=== PATIENT | male | born 1955 | race Caucasian/White ===

== ENCOUNTER 2016-11-04 11:53 | Day surgery (SDC) | payer OTHER ==
[2016-10-30 14:16] VITALS: BMI 30.7
[~2016-11-04 11:53] MED LIST: LACTATED RINGERS 1,000 ML IV SCH; LIDOCAINE 1% 20 ML VIAL (10MG/ML) FOR IV START INTRADERMA PRN
[2016-11-04 12:42] VITALS: TEMP 97
[2016-11-04] MEDS ORDERED: LIDOCAINE 1% INJ 10MG/ML (20 ML MDV) ONE (14:10)
[2016-11-04] MEDS ORDERED: GLYCOPYRROLATE 0.2 MG/ML 2 ML VIAL ONE (14:10)
[2016-11-04] MEDS ORDERED: PROPOFOL 10 MG/ML 20 ML VIAL IV ONE (14:10)
--- NOTE | 2016-11-04 14:26 | P.GSHP ---
History of Present Illness H&P Date: 11/04/16 Chief Complaint: Anemia This is a 61-year-old male referred from Dr. Padmini martinez. Patient presents today for EGD and colonoscopy. He's had issues anemia. Patient is undergoing EGD colonoscopy today for possible GI bleed - Constitutional Constitutional: Reports as per HPI Past Medical History Past Medical History: Hyperlipidemia, Hypertension, Prostate Disorder, Thyroid Disorder Additional Past Medical History / Comment(s): ANEMIA History of Any Multi-Drug Resistant Organisms: None Reported Additional Past Surgical History / Comment(s): COLONOSCOPY. PROSTATE BX Past Anesthesia/Blood Transfusion Reactions: No Reported Reaction Past Psychological History: No Psychological Hx Reported Smoking Status: Current every day smoker Past Alcohol Use History: Rare Additional Past Alcohol Use History / Comment(s): SMOKES 1/2 PPD SINCE AGE 18 Past Drug Use History: None Reported - Past Family History Mother Family Medical History: No Reported History Medications and Allergies Home Medications Medication Instructions Recorded Confirmed Type Aspirin [Adult Low Dose Aspirin EC] 81 mg PO DAILY 10/16/16 11/04/16 History Calcium Citrate 250 mg PO DAILY 10/16/16 11/04/16 History Ferrous Sulfate [Feosol] 650 mg PO DAILY 10/16/16 11/04/16 History Finasteride [Proscar] 5 mg PO HS 10/16/16 11/04/16 History Joint Conditioner 1 tab PO DAILY 10/16/16 11/04/16 History Levothyroxine Sodium [Levoxyl] 50 mcg PO DAILY 10/16/16 11/04/16 History Lisinopril 40 mg PO HS 10/16/16 11/04/16 History Multivitamins, Thera [Multivitamin] 1 each PO DAILY 10/16/16 11/04/16 History Simvastatin [Zocor] 40 mg PO SUMOWEFR 10/16/16 11/04/16 History Terazosin [Hytrin] 2 mg PO HS 10/16/16 11/04/16 History amLODIPine [Norvasc] 10 mg PO HS 10/16/16 11/04/16 History Allergies Allergy/AdvReac Type Severity Reaction Status Date / Time No Known Allergies Allergy Verified 10/30/16 14:13 Surgical - Exam Vital Signs Temp Pulse BP Pulse Ox 97 F L 98 150/92 99 11/04/16 12:40 11/04/16 12:40 11/04/16 12:40 11/04/16 12:40 - General well developed, no distress - Eyes PERRL - ENT normal pinna - Neck no masses - Respiratory normal expansion - Cardiovascular Rhythm: regular - Abdomen Abdomen: soft, non tender Assessment and Plan Plan: Anemia. We'll perform EGD colonoscopy to evaluate for GI bleed.
--- NOTE | 2016-11-04 14:44 | P.OP ---
Date of Procedure: 11/04/16 Preoperative Diagnosis: Anemia GI bleed Postoperative Diagnosis: Antral gastritis Large Hiatal hernia Esophagitis Normal colon Procedure(s) Performed: EGD Colonoscopy Anesthesia: MAC Surgeon: Jesus Manuel Back Pathology: other (Antrum, esophagus) Condition: stable Disposition: PACU Description of Procedure: PROCEDURE: The patient was placed on the endoscopy table in the lateral position. Digital rectal examination was performed which revealed no abnormalities. The prostate was symmetrical without nodules. Flexible colonoscope was then placed in the patient's anus and passed throughout the entire colon. The ileocecal valve was visualized. The cecum, ascending, transverse, descending and sigmoid colon were normal. The rectum was normal as well. There were no masses, polyps or diverticula noted in the entire colon. Next, the gastroscope was placed oropharynx and passed into the esophagus and into the stomach. The scope was then placed through the pylorus. The first and second portion of the duodenum appeared normal. Scope was then brought back the antrum and this appeared mildly inflamed. A biopsies performed. The scope was then retroflexed and the remainder of the stomach appeared normal. There was a large hiatal hernia. The GE junction was at 38 cm. The distal esophagus appeared inflamed a biopsies performed. The proximal esophagus appeared normal. The scope was then withdrawn for patient.
[2016-11-04 14:47] VITALS: RESP 18
[2016-11-04 15:01] VITALS: BP 121/78; PULSE 90
== END 2016-11-04 15:20 | disposition home or self-care (01) ==
LOC: ORWHC2ENDO 11:53
PROVIDERS: ATTEND Surgery
DX: K29.50 Unspecified chronic gastritis without bleeding (principal); K22.70 Barrett's esophagus without dysplasia; K20.9 Esophagitis, unspecified; K44.9 Diaphragmatic hernia without obstruction or gangrene; D64.9 Anemia, unspecified; I10 Essential (primary) hypertension; E78.5 Hyperlipidemia, unspecified; E07.9 Disorder of thyroid, unspecified; N40.0 Benign prostatic hyperplasia without lower urinary tract symptoms; F17.200 Nicotine dependence, unspecified, uncomplicated; Z79.82 Long term (current) use of aspirin; Z79.899 Other long term (current) drug therapy
CPT/HCPCS: 88305; 88342; 45378; 43239; J2001; J2704

== ENCOUNTER 2019-06-01 07:46 | Emergency (ER) | payer MEDICARE, OTHER ==
[2019-06-01] MEDS ORDERED: MECLIZINE 12.5 MG TAB PO STA (07:53)
[2019-06-01] MEDS ORDERED: SODIUM CHLORIDE 0.9% 1,000 ML IV STA (07:53)
[2019-06-01] MEDS ORDERED: ONDANSETRON 4 MG/2 ML VIAL IVP STA (07:53)
[2019-06-01] MEDS ORDERED: SODIUM CHLORIDE 0.9% 500 ML 500 ML IV STA (07:53)
[2019-06-01 07:55] VITALS: TEMP 98.2
--- NOTE | 2019-06-01 07:58 | ED ---
Syncope HPI - General Stated Complaint: SYNCOPE Time Seen by Provider: 06/01/19 07:47 Source: patient, EMS, RN notes reviewed Mode of arrival: EMS - History of Present Illness Initial Comments: Physical 64-year-old male with history of hypertension at work today when he started feeling nauseated about 10 or 15 minutes prior to his syncopal episode. He states he felt dizzy and had a headache he himself down slowly but was actually out for approximately 15 seconds. He is dizzy he states when he moves his head he moves his eyes he keeps his eyes closed to help alleviate it. He states he feels worse in supine position and upright. He has no prior episode of this. He does have sinus congestion and has had some left ear drainage which is Dr. his seen in is aware of. No history of strokes patient apparently had for 5 cigarettes this morning and also coffee prior to the event. No reports of fevers chills nausea vomiting sweats prior to this no other modifying factors he states he is compliant with his medications MD Complaint: loss of consciousness - Related Data Home Medications Medication Instructions Recorded Confirmed Aspirin [Adult Low Dose Aspirin EC] 81 mg PO DAILY 10/16/16 06/01/19 Finasteride [Proscar] 5 mg PO HS 10/16/16 06/01/19 Lisinopril 40 mg PO HS 10/16/16 06/01/19 Simvastatin [Zocor] 40 mg PO SUMOWEFR 10/16/16 06/01/19 Terazosin [Hytrin] 2 mg PO BID 10/16/16 06/01/19 amLODIPine [Norvasc] 10 mg PO HS 10/16/16 06/01/19 Levothyroxine Sodium [Synthroid] 75 mcg PO DAILY 06/01/19 06/01/19 Previous Rx's Medication Instructions Recorded Meclizine [Antivert] 25 mg PO TID #20 tab 06/01/19 Allergies Allergy/AdvReac Type Severity Reaction Status Date / Time No Known Allergies Allergy Verified 06/01/19 08:38 Review of Systems ROS Statement: Those systems with pertinent positive or pertinent negative responses have been documented in the HPI. ROS Other: All systems not noted in ROS Statement are negative. Past Medical History Past Medical History: Hyperlipidemia, Hypertension, Prostate Disorder, Thyroid Disorder Additional Past Medical History / Comment(s): ANEMIA History of Any Multi-Drug Resistant Organisms: None Reported Additional Past Surgical History / Comment(s): COLONOSCOPY. PROSTATE BX Past Anesthesia/Blood Transfusion Reactions: No Reported Reaction Past Psychological History: No Psychological Hx Reported Smoking Status: Current every day smoker Past Alcohol Use History: Rare Additional Past Alcohol Use History / Comment(s): SMOKES 1/2 PPD SINCE AGE 18 Past Drug Use History: None Reported - Past Family History Mother Family Medical History: No Reported History General Exam - General Exam Comments Initial Comments: This a well-developed asthenic appearing male who is awake alert oriented 3 General appearance: alert, in no apparent distress Head exam: Present: atraumatic, normocephalic, normal inspection Eye exam: Present: normal appearance, PERRL, EOMI. Absent: scleral icterus, conjunctival injection, periorbital swelling ENT exam: Present: mucous membranes dry Neck exam: Present: normal inspection. Absent: tenderness, meningismus, lymphadenopathy Respiratory exam: Present: normal lung sounds bilaterally. Absent: respiratory distress, wheezes, rales, rhonchi, stridor Cardiovascular Exam: Present: regular rate, normal rhythm, normal heart sounds. Absent: systolic murmur, diastolic murmur, rubs, gallop, clicks GI/Abdominal exam: Present: soft, normal bowel sounds. Absent: distended, tenderness, guarding, rebound, rigid Extremities exam: Present: normal inspection, full ROM, normal capillary refill. Absent: tenderness, pedal edema, joint swelling, calf tenderness Back exam: Present: normal inspection Neurological exam: Present: alert, oriented X3, CN II-XII intact Psychiatric exam: Present: normal affect, normal mood Skin exam: Present: warm, dry, intact, normal color. Absent: rash Course Vital Signs 06/01/19 06/01/19 06/01/19 07:52 08:58 09:00 Temperature 98.2 F Pulse Rate 66 63 Pulse Rate [ 62 Custodial Manager ] Respiratory 17 17 Rate Blood Pressure 105/69 103/71 O2 Sat by Pulse 99 Oximetry 06/01/19 10:00 Temperature Pulse Rate 59 L Pulse Rate [ Custodial Manager ] Respiratory 16 Rate Blood Pressure 103/71 O2 Sat by Pulse 99 Oximetry - Reevaluation(s) Reevaluation #1: 06/01/19 10:16 I did reevaluate patient on multiple occasions he has no further symptoms he has no dizziness. Procedures - Smoking Cessation Time Spent Discussing Smoking Cessation w/Patient (Minutes): 3 Patient Acknowledges Need for Cessation: Yes Medical Decision Making - Medical Decision Making Patient has had no further symptoms the presentation consistent with a vasovagal episode though benign positional vertigo is not excluded patient will be discharged he is encouraged to stop smoking also increase oral fluids he will follow-up with his doctor for reevaluation of his hiatal hernia and the CAT scan findings CT showed no evidence of pulmonary embolism - Lab Data Result diagrams: 06/01/19 07:25 06/01/19 07:25 Lab Results 06/01/19 06/01/19 06/01/19 Range/Units 07:25 07:25 07:25 WBC 8.1 (3.8-10.6) k/uL RBC 4.11 L (4.30-5.90) m/uL Hgb 13.2 (13.0-17.5) gm/dL Hct 38.7 L (39.0-53.0) % MCV 94.1 (80.0-100.0) fL MCH 32.2 (25.0-35.0) pg MCHC 34.2 (31.0-37.0) g/dL RDW 13.3 (11.5-15.5) % Plt Count 232 (150-450) k/uL Neutrophils % 67 % Lymphocytes % 21 % Monocytes % 7 % Eosinophils % 2 % Basophils % 0 % Neutrophils # 5.4 (1.3-7.7) k/uL Lymphocytes # 1.7 (1.0-4.8) k/uL Monocytes # 0.5 (0-1.0) k/uL Eosinophils # 0.2 (0-0.7) k/uL Basophils # 0.0 (0-0.2) k/uL PT 10.9 (9.0-12.0) sec INR 1.0 (<1.2) APTT 22.9 (22.0-30.0) sec D-Dimer 0.82 H (<0.60) mg/L FEU Sodium 140 (137-145) mmol/L Potassium 4.1 (3.5-5.1) mmol/L Chloride 108 H (98-107) mmol/L Carbon Dioxide 22 (22-30) mmol/L Anion Gap 10 mmol/L BUN 17 (9-20) mg/dL Creatinine 1.20 (0.66-1.25) mg/dL Est GFR (CKD-EPI)AfAm 73 (>60 ml/min/1.73 sqM) Est GFR (CKD-EPI)NonAf 63 (>60 ml/min/1.73 sqM) Glucose 128 H (74-99) mg/dL Calcium 9.6 (8.4-10.2) mg/dL Magnesium 2.0 (1.6-2.3) mg/dL Total Bilirubin 1.2 (0.2-1.3) mg/dL AST 27 (17-59) U/L ALT 27 (21-72) U/L Alkaline Phosphatase 68 (38-126) U/L Creatine Kinase 215 H (55-170) U/L Troponin I (0.000-0.034) ng/mL Total Protein 6.6 (6.3-8.2) g/dL Albumin 3.8 (3.5-5.0) g/dL Urine Color Urine Appearance (Clear) Urine pH (5.0-8.0) Ur Specific [place] (1.001-1.035) Urine Protein (Negative) Urine Glucose (UA) (Negative) Urine Ketones (Negative) Urine Blood (Negative) Urine Nitrite (Negative) Urine Bilirubin (Negative) Urine Urobilinogen (<2.0) mg/dL Ur Leukocyte Esterase (Negative) Urine RBC (0-5) /hpf Urine WBC (0-5) /hpf Hyaline Casts (0-2) /lpf Urine Mucus (None) /hpf 06/01/19 06/01/19 Range/Units 07:25 08:32 WBC (3.8-10.6) k/uL RBC (4.30-5.90) m/uL Hgb (13.0-17.5) gm/dL Hct (39.0-53.0) % MCV (80.0-100.0) fL MCH (25.0-35.0) pg MCHC (31.0-37.0) g/dL RDW (11.5-15.5) % Plt Count (150-450) k/uL Neutrophils % % Lymphocytes % % Monocytes % % Eosinophils % % Basophils % % Neutrophils # (1.3-7.7) k/uL Lymphocytes # (1.0-4.8) k/uL Monocytes # (0-1.0) k/uL Eosinophils # (0-0.7) k/uL Basophils # (0-0.2) k/uL PT (9.0-12.0) sec INR (<1.2) APTT (22.0-30.0) sec D-Dimer (<0.60) mg/L FEU Sodium (137-145) mmol/L Potassium (3.5-5.1) mmol/L Chloride (98-107) mmol/L Carbon Dioxide (22-30) mmol/L Anion Gap mmol/L BUN (9-20) mg/dL Creatinine (0.66-1.25) mg/dL Est GFR (CKD-EPI)AfAm (>60 ml/min/1.73 sqM) Est GFR (CKD-EPI)NonAf (>60 ml/min/1.73 sqM) Glucose (74-99) mg/dL Calcium (8.4-10.2) mg/dL Magnesium (1.6-2.3) mg/dL Total Bilirubin (0.2-1.3) mg/dL AST (17-59) U/L ALT (21-72) U/L Alkaline Phosphatase (38-126) U/L Creatine Kinase (55-170) U/L Troponin I <0.012 (0.000-0.034) ng/mL Total Protein (6.3-8.2) g/dL Albumin (3.5-5.0) g/dL Urine Color Dark Brown Urine Appearance Cloudy (Clear) Urine pH 6.5 (5.0-8.0) Ur Specific [place] 1.037 H (1.001-1.035) Urine Protein 2+ H (Negative) Urine Glucose (UA) Negative (Negative) Urine Ketones 2+ H (Negative) Urine Blood Negative (Negative) Urine Nitrite Negative (Negative) Urine Bilirubin 1+ H (Negative) Urine Urobilinogen 4.0 (<2.0) mg/dL Ur Leukocyte Esterase Small H (Negative) Urine RBC 3 (0-5) /hpf Urine WBC 10 H (0-5) /hpf Hyaline Casts 5 H (0-2) /lpf Urine Mucus Many H (None) /hpf - EKG Data -: EKG Interpreted by Me (Sinus rhythm a 61 appear interval 142 QRS 92 QT since QTC 454/457 nonspecif) - Radiology Data Radiology results: report reviewed (I did review the imaging and report patient does know he has a hiatal hernia he will follow up with his doctor for the irregularity), image reviewed Disposition Clinical Impression: Vasovagal syncope, Benign paroxysmal vertigo Disposition: HOME SELF-CARE Condition: Good Instructions (If sedation given, give patient instructions): Syncope (ED), How to Stop Smoking (ED), Benign Paroxysmal Positional Vertigo (ED) Prescriptions: Meclizine [Antivert] 25 mg PO TID #20 tab Is patient prescribed a controlled substance at d/c from ED?: No Referrals: Padmini Juarez DO [Primary Care Provider] - 1-2 days
[2019-06-01 08:20] LABS: Basophils % (A) 0 %; Eosinophils # (A) 0.2 k/uL (0-0.7); Eosinophils % (A) 2 %; HCT 38.7 % (39.0-53.0); HGB 13.2 gm/dL (13.0-17.5); Lymphocytes # (A) 1.7 k/uL (1.0-4.8); Lymphocytes % (A) 21 %; MCH 32.2 pg (25.0-35.0); MCHC 34.2 g/dL (31.0-37.0); MCV 94.1 fL (80.0-100.0); Mean Platelet Volume 6.5; Monocytes # (A) 0.5 k/uL (0-1.0); Monocytes % (A) 7 %; Neutrophils # (A) 5.4 k/uL (1.3-7.7); Neutrophils % (A) 67 %; Platelet Count 232 k/uL (150-450); RBC 4.11 m/uL (4.30-5.90); RDW 13.3 % (11.5-15.5); WBC 8.1 k/uL (3.8-10.6)
--- NOTE | 2019-06-01 08:30 | CT ---
EXAMINATION TYPE: CT brain wo con DATE OF EXAM: 06/01/2019 COMPARISON: None HISTORY: 64-year-old male Syncope TECHNIQUE: Examination was done in axial plane without intravenous contrast. Coronal and sagittal r econstructions performed. CT DLP: 1099.4 mGycm Automated exposure control for dose reduction was used. FINDINGS: There is no evidence of acute intracranial hemorrhage, acute ischemic changes, mass, mass-effect, or extra-axial fluid collection. There is no effacement of cerebral sulci or basal subarachnoid cister ns. There is no hydrocephalus. There is no midline shift. Collins-white matter distinction is preserv ed. Benign basal ganglionic calcifications. Large 2.8 cm mucosal retention cyst floor of the right maxillary sinus. Moderate mucosal thickening f rontal and ethmoid sinuses. Rightward nasal septal deviation. Mastoid air cells well pneumatized. Orb its and globes are intact. Some focal thickening along the left posterior skull base, are present axial image 13 and coronal marc ge 65, possibly some scar tissue formation in the absence of any acute injury. IMPRESSION: 1. No acute intracranial abnormality seen. 2. Moderate chronic ethmoid, frontal, and right maxillary sinus disease. 3. Focal high density soft tissue thickening along the left posterior base of skull probably scar tis bernabe formation in the absence of any acute injury. Otherwise, correlate to exclude a low scalp hematom a.
[2019-06-01 08:33] LABS: Albumin 3.8 g/dL (3.5-5.0); Calcium 9.6 mg/dL (8.4-10.2); Total Bilirubin 1.2 mg/dL (0.2-1.3); Total Protein 6.6 g/dL (6.3-8.2)
--- NOTE | 2019-06-01 08:34 | XR ---
EXAMINATION TYPE: XR chest 2V DATE OF EXAM: 06/01/2019 COMPARISON: NONE HISTORY: Syncope and weakness. TECHNIQUE: Frontal and lateral views of the chest are obtained. FINDINGS: There is some chronic parenchymal changes without suspicious focal air space opacity, pleu ral effusion, or pneumothorax seen. Symmetric lower lung rounded densities likely reflect patient's n ipples. The cardiac silhouette size is within normal limits. Multilevel spurring in thoracic spine is seen. Overlying EKG leads are present. Scoliotic curvature is noted. IMPRESSION: Chronic changes without acute pulmonary process.
[2019-06-01 08:35] LABS: Potassium 4.1 mmol/L (3.5-5.1)
[2019-06-01 08:37] LABS: Partial Thromboplastin Time 22.9 sec (22.0-30.0); Prothrombin Time 10.9 sec (9.0-12.0)
[2019-06-01 08:40] LABS: D-Dimer 0.82 mg/L FEU (<0.60)
[2019-06-01 09:54] LABS: Appearance,Urine Cloudy (Clear); Bilirubin,Urine 1+ (Negative); Blood,Urine Negative (Negative); Color,Urine Dark Brown; Glucose,Urine (UA) Negative (Negative); Hyaline Casts,Urine 5 /lpf (0-2); Ketones,Urine 2+ (Negative); Leukocyte Esterase,Urine Small (Negative); Mucus,Urine Many /hpf; Nitrite,Urine Negative (Negative); PH, Urine 6.5 (5.0-8.0); Protein,Urine 2+ (Negative); RBC,Urine 3 /hpf (0-5); Specific Gravity,Urine 1.037 (1.001-1.035); WBC,Urine 10 /hpf (0-5)
--- NOTE | 2019-06-01 09:54 | CT ---
EXAMINATION TYPE: CT angio chest DATE OF EXAM: 06/01/2019 COMPARISON: Radiograph same day HISTORY: 64-year-old male Syncope and elevated D dimer TECHNIQUE: Contiguous axial scanning of the chest performed with IV Contrast, patient injected with 6 9 mL of Isovue 370. Coronal/sagittal MIP reconstructions performed. CT DLP: 320.2 mGycm Automated exposure control for dose reduction was used. FINDINGS: Heart upper limits of normal in size without pericardial effusion. Scattered mild coronary vessel jeanna cifications are present. Ectatic ascending aorta 3.9 cm. Bovine configuration to the aortic arch. Large caliber to the main right and left pulmonary arteries at 2.7 and 2.6 cm, respectively, suggesti ng underlying pulmonary artery hypertension. Satisfactory opacification of the pulmonary arterial sys tem. No flattening of the interventricular septum or reflux of contrast into the hepatic veins. No ev idence for pulmonary embolus. There appears to be an underlying hiatal hernia but with irregular moderate severe circumferential wa ll thickening extending from the mid thorax to the distal esophagus. No thoracic lymphadenopathy. No consolidation or pleural effusion. Mild dependent atelectasis. Visualized upper abdomen shows a hilar splenule and mild diffuse low-density thickening of the left a drenal gland. Bones: Moderate degenerative disc disease throughout the thoracic spine. IMPRESSION: 1. NO EVIDENCE FOR PULMONARY EMBOLUS. HOWEVER, LARGE CALIBER TO THE MAIN RIGHT AND LEFT PULMONARY ART ERIES SUGGESTS UNDERLYING PULMONARY ARTERIAL HYPERTENSION. 2. NOTE MODERATE TO SEVERE IRREGULAR CIRCUMFERENTIAL THICKENING OF THE MID TO DISTAL THORACIC ESOPHAG US. ESOPHAGEAL CARCINOMA SHOULD BE EXCLUDED. 3. ACCOMPANYING HIATAL HERNIA.
[2019-06-01 10:13] VITALS: BP 103/71; PULSE 59; RESP 16
[2019-06-01] MEDS ORDERED: HYDROmorphone 0.5 MG/0.5 ML SYRINGE IVP STA (10:15)
== END 2019-06-01 10:38 | disposition home or self-care (01) ==
LOC: EC 07:46
DX: H81.12 Benign paroxysmal vertigo, left ear (principal); R55 Syncope and collapse; I10 Essential (primary) hypertension; E78.5 Hyperlipidemia, unspecified; E07.9 Disorder of thyroid, unspecified; F17.200 Nicotine dependence, unspecified, uncomplicated; Z71.6 Tobacco abuse counseling; Z79.82 Long term (current) use of aspirin; Z79.899 Other long term (current) drug therapy; Z79.890 Hormone replacement therapy; Z53.20 Procedure and treatment not carried out because of patient's decision for unspecified reasons
CPT/HCPCS: 36415; 93005; 85379; 80053; 82550; 83735; 84484; 85025; 85610; 85730; 81001; 71046; 70450; 71275; 99285; 96360; 96361 ×2; Q9967

== ENCOUNTER → 2019-08-11 | Day surgery (SDC) | payer MEDICARE, OTHER ==
[2019-08-09 14:11] VITALS: BMI 21.7
[~2019-08-11] MED LIST changes: +LIDOCAINE 1% 20 ML VIAL (10MG/ML) FOR IV START INTRADERMA ONE; -LIDOCAINE 1% 20 ML VIAL (10MG/ML) FOR IV START INTRADERMA PRN; +LIDOCAINE 1% INJ 10MG/ML (20 ML MDV) ONE; +PROPOFOL 10 MG/ML 20 ML VIAL IV ONE
[2019-08-11 09:54] VITALS: RESP 16; TEMP 97.6
--- NOTE | 2019-08-11 10:45 | P.GSHP ---
History of Present Illness H&P Date: 08/11/19 Chief Complaint: GERD this is a 64-year-old male with chronic history of GERD. Patient has a known history of a hiatal hernia. Patient rents today for EGD. His recent CAT scan shows some evidence of suspicious thickening of the esophagus. Past Medical History Past Medical History: Hyperlipidemia, Hypertension, Prostate Disorder, Thyroid Disorder Additional Past Medical History / Comment(s): ANEMIA-. had an episode of vertigo in May 2019 History of Any Multi-Drug Resistant Organisms: None Reported Additional Past Surgical History / Comment(s): COLONOSCOPY. PROSTATE BX Past Anesthesia/Blood Transfusion Reactions: No Reported Reaction Smoking Status: Current every day smoker - Past Family History Mother Family Medical History: No Reported History Medications and Allergies Home Medications Medication Instructions Recorded Confirmed Type Aspirin [Adult Low Dose Aspirin EC] 81 mg PO DAILY 10/16/16 08/09/19 History Finasteride [Proscar] 5 mg PO HS 10/16/16 08/09/19 History Lisinopril 40 mg PO HS 10/16/16 08/09/19 History Simvastatin [Zocor] 40 mg PO SUMOWEFR 10/16/16 08/09/19 History Terazosin [Hytrin] 2 mg PO BID 10/16/16 08/09/19 History amLODIPine [Norvasc] 10 mg PO HS 10/16/16 08/09/19 History Levothyroxine Sodium [Synthroid] 75 mcg PO DAILY 06/01/19 08/09/19 History Allergies Allergy/AdvReac Type Severity Reaction Status Date / Time No Known Allergies Allergy Verified 08/11/19 09:44 Surgical - Exam Vital Signs Temp Pulse Resp BP Pulse Ox 97.6 F 88 16 102/57 99 08/11/19 09:53 08/11/19 09:53 08/11/19 09:53 08/11/19 09:53 08/11/19 09:53 - General well developed, well nourished, no distress - Eyes PERRL - ENT normal pinna - Neck no masses - Respiratory normal expansion - Cardiovascular Rhythm: regular - Abdomen Abdomen: soft, non tender Assessment and Plan Assessment: GERD. We'll perform EGD.
--- NOTE | 2019-08-11 10:58 | P.OP ---
Date of Procedure: 08/11/19 Preoperative Diagnosis: GERD Dysphagia Postoperative Diagnosis: esophageal mass at 30 cm suspicious for adenocarcinoma Procedure(s) Performed: EGD Anesthesia: MAC Surgeon: Jesus Manuel Back Pathology: other (esophageal mass) Condition: stable Disposition: PACU Description of Procedure: patient's placed in the endoscopy table in the lateral position. He received IV sedation. The gastroscope placed oropharynx passed in the esophagus. There is a large amount liquid within the esophagus. At 30 cm there is an obstructing esophageal mass. The endoscope could not be placed beyond this. The mass was quite friable and bled easily. Several biopsies of mass performed. The mass hwas very suspicious for a esophageal carcinoma. The endoscope could not be passed beyond the mass. At this point the scope was withdrawn. The proximal esophagus appeared normal. Scope was withdrawn for patient.
[2019-08-11 11:17] VITALS: BP 114/76; PULSE 75
--- NOTE | 2019-08-18 13:39 | CDI ---
Outpatient Documentation Clarification Form Date: 08/18/19 CDS/Area Director Name: Phone: If any questions, call Anju Mckinley Pack [employer] Operator at [phone] Patient Name: Genaro Cuevas Admit Date: 08/11/19 Discharge Date: 08/11/19 ATTENTION: The [facility] Coding Staff appreciate your assistance in clarifying documentation. Please respond to the clarification below the line at the bottom and electronically sign. The [facility] Coding staff will review the response and follow-up if needed. Please note: Queries are made part of the Legal Health Record. If you have any questions, please contact the Pack Press Operator. Dear Dr. Back, The Op Note described an esophageal mass (Path Report confirms adenocarcinoma) at 30 cm. What part of the esophagus is this mass within? For coding purposes, options include: A. Abdominal B. Cardio-esophageal junction C. Cervical D. Distal (third) E. Lower (third) F. Middle (third) G. Proximal (third) H. Thoracic I. Upper (third) J. Unspecified/unable to determine K. Other please describe below Thank you for your kind consideration. see op report addendum MTDD
== END ==
LOC: ORWHC2ENDO 09:26
PROVIDERS: ATTEND Surgery
DX: C15.5 Malignant neoplasm of lower third of esophagus (principal); K21.9 Gastro-esophageal reflux disease without esophagitis; E78.5 Hyperlipidemia, unspecified; I10 Essential (primary) hypertension; E07.9 Disorder of thyroid, unspecified; N40.0 Benign prostatic hyperplasia without lower urinary tract symptoms; F17.200 Nicotine dependence, unspecified, uncomplicated; Z79.82 Long term (current) use of aspirin; Z79.890 Hormone replacement therapy; Z79.899 Other long term (current) drug therapy
CPT/HCPCS: 88305; 43239; J2001; J2704

== ENCOUNTER → 2019-08-26 | Outpatient (CLI) | payer MEDICARE ==
--- NOTE | 2019-08-28 10:03 | PE ---
EXAMINATION TYPE: PET CT fusion skull to thigh DATE OF EXAM: 08/26/2019 COMPARISON: Chest CT June 01, 2019 HISTORY: Esophageal cancer recently diagnosed on biopsy in May or June after abnormal CT. TECHNIQUE: Following the intravenous administration of 8.77 mCi of F-18 FDG, whole body images are p erformed from the skull base to the midthigh. Images are reviewed on the computer in the coronal, ax ial, and sagittal planes. Reconstructed rotating images are created on independent workstation and r eviewed on the computer. A noncontrast CT is performed in conjunction with the PET scan. SCAN: Initial Scan FINDINGS: SKULL BASE AND NECK: No suspicious hypermetabolic uptake. CHEST, MEDIASTINUM, AND HILAR REGION: Corresponding to CT there is long segment mass or neoplasm of t he esophagus measuring roughly 9 cm in length beginning subcarinal level extending a few centimeters above the diaphragmatic hiatus. Max SUV is 22.25. There is dilated proximal to mid esophagus with int raluminal debris near level of clarisse proximal to this. There is abnormal pericarinal lymph node measuring 1.8 x 1.0 cm axial image 87 with max SUV of 5.55. ABDOMEN AND PELVIS: There are hepatic metastatic lesions with several areas of abnormal hypermetaboli c uptake. Vague CT hypodense lesions are less well seen but identified in the larger lesions. Lateral segment right hepatic lobe lesion image 149 has max SUV of 17.77 measuring approximately 2.1 cm long axis. More anterior 2.2 cm lesion long axis same image has max SUV of 17.65. No additional areas of suspicious hypermetabolic uptake. OSSEOUS STRUCTURES: Osseous hypermetabolic metastatic disease is present. There is lytic right iliac bone hypermetabolic lesion axial image 185 Max SUV of 23.17. Larger right iliac lytic destructive lesion with soft tissue mass axial image 167 with max SUV 28.87. OTHER CT: Moderate calcified plaque bilateral carotid bulb level. Cardiomegaly with coronary artery desiccation is present. Patient has very little intra-abdominal fat making evaluation suboptimal. Moderate calcified plaque o f the aorta extending into branch vessels. Dependent small gallstones and/or gallbladder sludge. S-shaped scoliosis with multilevel spurring in the spine. IMPRESSION: Confirmation of moderate length mid to distal esophageal neoplasm with metastatic disease to the liver and pelvis identified. Abnormal paracarinal adenopathy noted.
== END | disposition home or self-care (01) ==
LOC: RADPETMAIN 12:32
PROVIDERS: ATTEND Internal Medicine Hematology & Oncology
DX: C15.8 Malignant neoplasm of overlapping sites of esophagus (principal); C78.7 Secondary malignant neoplasm of liver and intrahepatic bile duct; C79.89 Secondary malignant neoplasm of other specified sites; R59.9 Enlarged lymph nodes, unspecified
CPT/HCPCS: 78815; A9552

== ENCOUNTER → 2019-09-13 | Outpatient (CLI) | payer MEDICARE ==
--- NOTE | 2019-09-13 11:16 | ECHOF ---
Referral Reason:C15.5 esophageal ca MEASUREMENTS -------- HEIGHT: 182.9 cm WEIGHT: 65.8 kg BP: RVIDd: 2.2 cm (< 3.3) IVSd: 1.0 cm (0.6 - 1.1) LVIDd: 3.8 cm (3.9 - 5.3) LVPWd: 1.3 cm (0.6 - 1.1) IVSs: 1.4 cm LVIDs: 2.5 cm LVPWs: 1.6 cm LAESV Index (A-L): 35.34 ml/m Ao Diam: 3.7 cm (2.0 - 3.7) AV Cusp: 2.1 cm (1.5 - 2.6) LA Diam: 2.7 cm (2.7 - 3.8) MV EXCURSION: 26.234 mm (> 18.000) MV EF SLOPE: 180 mm/s (70 - 150) EPSS: 0.5 cm MV E Torin: 0.88 m/s MV DecT: 274 ms MV A Torin: 0.82 m/s MV E/A Ratio: 1.07 AV maxP.60 mmHg AV meanP.43 mmHg RAP: 5.00 mmHg RVSP: 35.79 mmHg FINDINGS -------- Sinus rhythm. This was a technically good study. The left ventricular size is normal. There is mild concentric left ventricular hypertrophy. Overa ll left ventricular systolic function is normal with, an EF between 55 - 60 %. Increased LAP. Grade 2 Diastolic Dysfuntion. The right ventricle is normal in size. LA is moderately dilated 34-39 ml/m2 The right atrial size is normal. Aortic valve is trileaflet and is mildly thickened. There is mild aortic valve sclerosis. Peak/me an gradient across the Aortic Valve is 14.60mmHg / 7.43mmHg. The mitral valve is normal. The mitral valve leaflets are mildly thickened. Mild mitral regurgita tion is present. The tricuspid valve appears structurally normal. Mild tricuspid regurgitation present. There is m ild pulmonary hypertension. The right ventricular systolic pressure, as measured by Doppler, is 35. 79mmHg. There is no pulmonic regurgitation present. The aortic root size is normal. Normal inferior vena cava with normal inspiratory collapse consistent with estimated right atrial pre ssure of 5 mmHg. There is a trivial pericardial effusion present. CONCLUSIONS -------- 1. Sinus rhythm. 2. This was a technically good study. 3. The left ventricular size is normal. 4. There is mild concentric left ventricular hypertrophy. 5. Overall left ventricular systolic function is normal with, an EF between 55 - 60 %. 6. Increased LAP. Grade 2 Diastolic Dysfuntion. 7. The right ventricle is normal in size. 8. LA is moderately dilated 34-39 ml/m2 9. The right atrial size is normal. 10. Aortic valve is trileaflet and is mildly thickened. 11. There is mild aortic valve sclerosis. 12. Peak/mean gradient across the Aortic Valve is 14.60mmHg / 7.43mmHg. 13. The mitral valve is normal. 14. The mitral valve leaflets are mildly thickened. 15. Mild mitral regurgitation is present. 16. The tricuspid valve appears structurally normal. 17. Mild tricuspid regurgitation present. 18. There is mild pulmonary hypertension. 19. The right ventricular systolic pressure, as measured by Doppler, is 35.79mmHg. 20. There is no pulmonic regurgitation present. 21. The aortic root size is normal. 22. Normal inferior vena cava with normal inspiratory collapse consistent with estimated right atrial pressure of 5 mmHg. 23. There is a trivial pericardial effusion present. ACID OPERATOR: Beatrice Mir RDCS
== END | disposition home or self-care (01) ==
LOC: RADECHMAIN 08:27
PROVIDERS: ATTEND Internal Medicine Hematology & Oncology
DX: Z01.818 Encounter for other preprocedural examination (principal); I08.3 Combined rheumatic disorders of mitral, aortic and tricuspid valves; I27.20 Pulmonary hypertension, unspecified; I31.3 Pericardial effusion (noninflammatory); C15.5 Malignant neoplasm of lower third of esophagus
CPT/HCPCS: 93306

== ENCOUNTER 2019-09-20 10:14 | Day surgery (SDC) | payer MEDICARE ==
[~2019-09-20 10:14] MED LIST changes: +DEXAMETHASONE SOD PHOSPHATE 10 MG/ML 1 ML VIAL IV ONE; +HEPARIN SODIUM,PORCINE 5,000 UNIT/ML 1 ML VIAL SQ ONE; +HYDROmorphone 0.5 MG/0.5 ML SYRINGE IVP PRN; -LACTATED RINGERS 1,000 ML IV SCH; -LIDOCAINE 1% 20 ML VIAL (10MG/ML) FOR IV START INTRADERMA ONE; +LIDOCAINE 1% 20 ML VIAL (10MG/ML) FOR IV START INTRADERMA PRN; -LIDOCAINE 1% INJ 10MG/ML (20 ML MDV) ONE; +ONDANSETRON 4 MG/2 ML VIAL IVP ONE; -PROPOFOL 10 MG/ML 20 ML VIAL IV ONE; +Pre Op ABX Message 1 EACH MISC MISCELLANE ONE
--- NOTE | 2019-09-20 10:41 | P.GSHP ---
History of Present Illness H&P Date: 09/20/19 Chief Complaint: Esophageal cancer 's is 64-year-old male with recent diagnosis of esophageal cancer. Patient is today for Port-A-Cath insertion Past Medical History Past Medical History: Cancer, Hyperlipidemia, Hypertension, Prostate Disorder, Thyroid Disorder Additional Past Medical History / Comment(s): ANEMIA-. had an episode of vertigo in May 2019. Esophageal cancer. Radiation therapy - Aug 2019 History of Any Multi-Drug Resistant Organisms: None Reported Additional Past Surgical History / Comment(s): COLONOSCOPY. PROSTATE BX Past Anesthesia/Blood Transfusion Reactions: No Reported Reaction Past Psychological History: No Psychological Hx Reported Smoking Status: Current every day smoker Past Alcohol Use History: Rare Additional Past Alcohol Use History / Comment(s): SMOKES 1/2 PPD SINCE AGE 18 Past Drug Use History: None Reported - Past Family History Mother Family Medical History: No Reported History Medications and Allergies Home Medications Medication Instructions Recorded Confirmed Type Aspirin [Adult Low Dose Aspirin EC] 81 mg PO DAILY 10/16/16 09/19/19 History Finasteride [Proscar] 5 mg PO DAILY 10/16/16 09/19/19 History Lisinopril 40 mg PO HS 10/16/16 09/19/19 History Simvastatin [Zocor] 40 mg PO SUMOWEFR 10/16/16 09/19/19 History Terazosin [Hytrin] 2 mg PO QAM 10/16/16 09/19/19 History amLODIPine [Norvasc] 10 mg PO HS 10/16/16 09/19/19 History Levothyroxine Sodium [Synthroid] 75 mcg PO QAM 06/01/19 09/19/19 History Calcium Carbonate [Calcium] 600 mg PO DAILY 09/19/19 09/19/19 History Multivitamins, Thera [Multivitamin 1 tab PO DAILY 09/19/19 09/19/19 History (formulary)] Naproxen Sodium 220 mg PO DAILY PRN 09/19/19 09/19/19 History Allergies Allergy/AdvReac Type Severity Reaction Status Date / Time No Known Allergies Allergy Verified 09/20/19 10:33 Surgical - Exam - General moderate distress, cachectic - Eyes PERRL - ENT normal pinna - Neck no masses - Respiratory normal expansion - Cardiovascular Rhythm: regular - Abdomen Abdomen: soft, non tender Assessment and Plan Assessment: Soft her cancer. Patient will undergo Port-A-Cath placement
[2019-09-20] MEDS ORDERED: HEPARIN SODIUM,PORCINE 100 UNIT/ML 5 ML VIAL IV ONE ×2 (10:58→11:41)
[2019-09-20] MEDS ORDERED: IOPAMIDOL-370 50ML BTL MISCELLANE ONE ×2 (10:58→11:41)
[2019-09-20] MEDS ORDERED: LIDOCAINE 1%-EPI 1:100,000 20 ML VIAL SQ ONE ×3 (10:59→11:41)
[2019-09-20] MEDS: LACTATED RINGERS 1,000 ML IV SCH ×2 (11:01→21:17)
[2019-09-20] MEDS ORDERED: MIDAZOLAM 2 MG/2 ML VIAL ONE (11:12)
[2019-09-20] MEDS ORDERED: KETAMINE 10 MG/ML 20 ML VIAL ONE (11:12)
--- NOTE | 2019-09-20 12:15 | P.OP ---
Date of Procedure: 09/20/19 Preoperative Diagnosis: Esophageal cancer Postoperative Diagnosis: Esophageal cancer Procedure(s) Performed: Placement of right subclavian Port-A-Cath Anesthesia: MAC Surgeon: Jesus Manuel Back Pathology: none sent Condition: stable Disposition: PACU Description of Procedure: nThe patient was placed on the operating table in the supine position. The patient received IV sedation. The patient's chest was prepped and draped in the usual sterile fashion. A roll had been placed between the shoulder blades in a longitudinal fashion. After prepping and draping the skin was anesthetized 1% local Xylocaine. And then using the Seldinger technique the subclavian vein was cannulated. A wire was placed into the vein and fluoroscopy position the wire at the atrial caval junction. Next the dilator sheath was placed over top the wire and the wire was withdrawn. The catheter was positioned at the atriocaval position. The catheter was placed through the sheath after the dilator was withdrawn. The sheath was then withdrawn. Position of the catheter was confirmed with fluoroscopy. The Port-A-Cath was connected to the catheter. The Port-A-Cath was flushed with saline and then heparinized saline. The skin was closed interrupted 3-0 Monocryl suture. Dermabond was applied. Patient tolerated procedure well and was sent to recovery room stable condition.t
--- NOTE | 2019-09-20 12:32 | XR ---
EXAMINATION TYPE: XR chest 1V DATE OF EXAM: 09/20/2019 COMPARISON: 06/01/2019 HISTORY: 64-year-old male Mediport placement TECHNIQUE: Single frontal view of the chest is obtained. FINDINGS: Right anterior chest wall injection port with subclavian access and catheter tip at the upper SVC lev el. Heart upper limits of normal in size. The kyphotic positioning limits visualization of the lung b ases. Mild interstitial prominence is unchanged. Prominent leftward and likely summation shadow. No d efinite consolidation or pleural effusion. IMPRESSION: Right anterior chest wall injection port with subclavian access and catheter tip at the upper SVC lev el.
[2019-09-20 12:33] LABS: Basophils % (A) 0 %; Eosinophils % (A) 0 %; HCT 30.5 % (39.0-53.0); HGB 9.6 gm/dL (13.0-17.5); Lymphocytes # (A) 0.2 k/uL (1.0-4.8); Lymphocytes % (A) 1 %; MCH 30.4 pg (25.0-35.0); MCHC 31.4 g/dL (31.0-37.0); MCV 96.9 fL (80.0-100.0); Mean Platelet Volume 8.5; Monocytes # (A) 0.5 k/uL (0-1.0); Monocytes % (A) 3 %; Neutrophils # (A) 16.3 k/uL (1.3-7.7); Neutrophils % (A) 95 %; Platelet Count 240 k/uL (150-450); RBC 3.14 m/uL (4.30-5.90); WBC 17.1 k/uL (3.8-10.6)
[2019-09-20 12:48] LABS: Albumin 2.7 g/dL (3.5-5.0); Potassium 4.2 mmol/L (3.5-5.1); Total Bilirubin 2.2 mg/dL (0.2-1.3); Total Protein 5.9 g/dL (6.3-8.2)
[2019-09-20 12:52] LABS: Calcium 13.3 mg/dL (8.4-10.2)
[2019-09-20] MEDS ORDERED: SODIUM CHLORIDE 0.9% 1,000 ML IV ONE ×2 (13:26)
--- NOTE | 2019-09-20 14:57 | FL ---
EXAMINATION TYPE: FL guided central line placement DATE OF EXAM: 09/20/2019 FLUOROSCOPY Fluoroscopy time of 5 seconds was used during Port-A-Cath insertion. 1 image/s document/s the proced ure.
[2019-09-20] MEDS: HEPARIN SODIUM,PORCINE 5,000 UNIT/ML 1 ML VIAL SQ SCH (21:24)
[2019-09-20] MEDS: SODIUM CHLORIDE 0.9% 1,000 ML IV SCH (21:24)
[2019-09-21] MEDS: SODIUM CHLORIDE 0.9% 1,000 ML IV SCH ×3 (01:32→22:41)
[2019-09-21] MEDS: LEVOTHYROXINE 75 MCG TAB PO SCH (05:38)
[2019-09-21 06:40] LABS: Basophils % (A) 0 %; Eosinophils % (A) 0 %; HCT 28.4 % (39.0-53.0); HGB 8.8 gm/dL (13.0-17.5); Lymphocytes # (A) 0.2 k/uL (1.0-4.8); Lymphocytes % (A) 1 %; MCHC 31.1 g/dL (31.0-37.0); MCV 96.3 fL (80.0-100.0); Mean Platelet Volume 8.6; Monocytes # (A) 0.5 k/uL (0-1.0); Monocytes % (A) 3 %; Neutrophils # (A) 17.7 k/uL (1.3-7.7); Neutrophils % (A) 96 %; Platelet Count 221 k/uL (150-450); RBC 2.95 m/uL (4.30-5.90); WBC 18.5 k/uL (3.8-10.6)
[2019-09-21 06:56] LABS: Albumin 2.4 g/dL (3.5-5.0); Calcium 11.7 mg/dL (8.4-10.2); Potassium 3.8 mmol/L (3.5-5.1); Total Bilirubin 1.9 mg/dL (0.2-1.3); Total Protein 5.3 g/dL (6.3-8.2)
[2019-09-21] MEDS: FINASTERIDE 5 MG TAB PO SCH (08:58)
[2019-09-21] MEDS: HEPARIN SODIUM,PORCINE 5,000 UNIT/ML 1 ML VIAL SQ SCH ×2 (08:58→22:41)
--- NOTE | 2019-09-21 15:36 | P.GSCN ---
History of Present Illness Consult date: 09/21/19 Reason for Consult: surgical patient History of present illness: CHIEF COMPLAINT: Surgical patient HISTORY OF PRESENT ILLNESS: 64-year-old male with a history of esophageal cancer who underwent placement of right subclavian Port-A-Cath with Dr. Back on 09/20/2019. Patient was admitted to the hospital postoperatively due to hypotension and abnormal lab values. PAST MEDICAL HISTORY: See list. PAST SURGICAL HISTORY: See list. SOCIAL HISTORY: No illicit drug use. REVIEW OF SYSTEMS: CONSTITUTIONAL: Denies fever or chills. HEENT: Denies blurred vision, vision changes, or eye pain. Denies hemoptysis CARDIOVASCULAR: Denies chest pain or pressure. RESPIRATORY: No shortness of breath. GASTROINTESTINAL: Denies abdominal pain. HEMATOLOGIC: Denies bleeding disorders. GENITOURINARY: Denies any blood in urine. SKIN: Denies pruitis. Denies rash. PHYSICAL EXAM: VITAL SIGNS: Reviewed. GENERAL: Well-developed in no acute distress. HEENT: No sclera icterus. Extraocular movements grossly intact. Moist buccal mucosa. Head is atraumatic, normocephalic. ABDOMEN: Soft. Nondistended. Nontender. CHEST: Right port site clean dry intact. Nontender. NEUROLOGIC: Alert and oriented. Cranial nerves II through XII grossly intact. LABORATORY DATA: WBC 18.5. Hemoglobin 8.8. Platelet count 221. Calcium 13.3. Repeat 11.7. ASSESSMENT: 1. Esophageal cancer, status post right subclavian Port-A-Cath PLAN: No surgical intervention from a general surgery standpoint Continue management of abnormal labs per internal medicine Stable for discharge from a surgery standpoint when cleared by medicine Nurse practitioner note has been reviewed by physician. Signing provider agrees with the documented findings, assessment, and plan of care. Past Medical History Past Medical History: Cancer, Hyperlipidemia, Hypertension, Prostate Disorder, Thyroid Disorder Additional Past Medical History / Comment(s): ANEMIA-. had an episode of vertigo in May 2019. Esophageal cancer. Radiation therapy - Aug 2019 History of Any Multi-Drug Resistant Organisms: None Reported Additional Past Surgical History / Comment(s): COLONOSCOPY. PROSTATE BX Past Anesthesia/Blood Transfusion Reactions: No Reported Reaction Past Psychological History: No Psychological Hx Reported Smoking Status: Current every day smoker Past Alcohol Use History: Rare Additional Past Alcohol Use History / Comment(s): SMOKES 1/2 PPD SINCE AGE 18 Past Drug Use History: None Reported - Past Family History Mother Family Medical History: No Reported History Medications and Allergies Home Medications Medication Instructions Recorded Confirmed Type Aspirin [Adult Low Dose Aspirin EC] 81 mg PO DAILY 10/16/16 09/19/19 History Finasteride [Proscar] 5 mg PO DAILY 10/16/16 09/19/19 History Lisinopril 40 mg PO HS 10/16/16 09/19/19 History Simvastatin [Zocor] 40 mg PO SUMOWEFR 10/16/16 09/19/19 History Terazosin [Hytrin] 2 mg PO QAM 10/16/16 09/19/19 History amLODIPine [Norvasc] 10 mg PO HS 10/16/16 09/19/19 History Levothyroxine Sodium [Synthroid] 75 mcg PO QAM 06/01/19 09/19/19 History Calcium Carbonate [Calcium] 600 mg PO DAILY 09/19/19 09/19/19 History Multivitamins, Thera [Multivitamin 1 tab PO DAILY 09/19/19 09/19/19 History (formulary)] Naproxen Sodium 220 mg PO DAILY PRN 09/19/19 09/19/19 History Allergies Allergy/AdvReac Type Severity Reaction Status Date / Time No Known Allergies Allergy Verified 09/20/19 10:33 Surgical - Exam Vital Signs Temp Pulse Resp BP Pulse Ox 99.2 F 70 19 77/52 88 L 09/20/19 10:44 09/20/19 10:44 09/20/19 10:44 09/20/19 10:44 09/20/19 10:44 Results - Labs 09/21/19 05:41 09/21/19 05:41 Abnormal Lab Results - Last 24 Hours (Table) 09/20/19 09/20/19 09/21/19 Range/Units 12:20 12:20 05:41 WBC 18.5 H (3.8-10.6) k/uL RBC 2.95 L (4.30-5.90) m/uL Hgb 8.8 L (13.0-17.5) gm/dL Hct 28.4 L (39.0-53.0) % Neutrophils # 17.7 H (1.3-7.7) k/uL Lymphocytes # 0.2 L (1.0-4.8) k/uL Sodium (137-145) mmol/L Carbon Dioxide (22-30) mmol/L BUN (9-20) mg/dL Calcium (8.4-10.2) mg/dL Total Bilirubin (0.2-1.3) mg/dL Alkaline Phosphatase (38-126) U/L C-Reactive Protein 145.4 H (<10.0) mg/L Total Protein (6.3-8.2) g/dL Albumin (3.5-5.0) g/dL Procalcitonin 0.84 H (0.02-0.09) ng/mL 09/21/19 Range/Units 05:41 WBC (3.8-10.6) k/uL RBC (4.30-5.90) m/uL Hgb (13.0-17.5) gm/dL Hct (39.0-53.0) % Neutrophils # (1.3-7.7) k/uL Lymphocytes # (1.0-4.8) k/uL Sodium 136 L (137-145) mmol/L Carbon Dioxide 32 H (22-30) mmol/L BUN 42 H (9-20) mg/dL Calcium 11.7 H (8.4-10.2) mg/dL Total Bilirubin 1.9 H (0.2-1.3) mg/dL Alkaline Phosphatase 185 H (38-126) U/L C-Reactive Protein (<10.0) mg/L Total Protein 5.3 L (6.3-8.2) g/dL Albumin 2.4 L (3.5-5.0) g/dL Procalcitonin (0.02-0.09) ng/mL Diabetes panel 09/21/19 Range/Units 05:41 Sodium 136 L (137-145) mmol/L Potassium 3.8 (3.5-5.1) mmol/L Chloride 101 (98-107) mmol/L Carbon Dioxide 32 H (22-30) mmol/L BUN 42 H (9-20) mg/dL Creatinine 1.17 (0.66-1.25) mg/dL Glucose 86 (74-99) mg/dL Calcium 11.7 H (8.4-10.2) mg/dL AST 34 (17-59) U/L ALT 29 (4-49) U/L Alkaline Phosphatase 185 H (38-126) U/L Total Protein 5.3 L (6.3-8.2) g/dL Albumin 2.4 L (3.5-5.0) g/dL Calcium panel 09/21/19 Range/Units 05:41 Calcium 11.7 H (8.4-10.2) mg/dL Albumin 2.4 L (3.5-5.0) g/dL Pituitary panel 09/21/19 Range/Units 05:41 Sodium 136 L (137-145) mmol/L Potassium 3.8 (3.5-5.1) mmol/L Chloride 101 (98-107) mmol/L Carbon Dioxide 32 H (22-30) mmol/L BUN 42 H (9-20) mg/dL Creatinine 1.17 (0.66-1.25) mg/dL Glucose 86 (74-99) mg/dL Calcium 11.7 H (8.4-10.2) mg/dL Adrenal panel 09/21/19 Range/Units 05:41 Sodium 136 L (137-145) mmol/L Potassium 3.8 (3.5-5.1) mmol/L Chloride 101 (98-107) mmol/L Carbon Dioxide 32 H (22-30) mmol/L BUN 42 H (9-20) mg/dL Creatinine 1.17 (0.66-1.25) mg/dL Glucose 86 (74-99) mg/dL Calcium 11.7 H (8.4-10.2) mg/dL Total Bilirubin 1.9 H (0.2-1.3) mg/dL AST 34 (17-59) U/L ALT 29 (4-49) U/L Alkaline Phosphatase 185 H (38-126) U/L Total Protein 5.3 L (6.3-8.2) g/dL Albumin 2.4 L (3.5-5.0) g/dL
--- NOTE | 2019-09-21 22:10 | P.HPIM ---
History of Present Illness H&P Date: 09/21/19 Chief Complaint: weakness, abnormal labs Genaro Cuevas is a 64 yo M with PMH of esophageal cancer, hypothyroidism who presented to the hospital for a scheduled medport insertion. He underwent this procedure successfully with Dr. Back on 09/20/19. After the procedure he was noted to be hypoxic to 88% on room air with pressures as low as 70/52 and blood work was drawn which revealed WBC 17k, Cr 1.35, Calcium 13.3, CRP 145, procalcitonin 0.8. Pt is essentially asymptomatic and aside from significant fatigue and inability to tolerate solids due to his cancer; denies chest pain, sore throat, cough, fever, chills, abdominal pain, diarrhea. He is admitted for further evaluation and management. Review of Systems All systems: negative Constitutional: Reports fatigue, Reports malaise, Reports weakness, Denies chills, Denies fever Eyes: denies blurred vision, denies pain Ears, nose, mouth and throat: Denies headache, Denies sore throat Cardiovascular: Denies chest pain, Denies shortness of breath Respiratory: Denies cough Gastrointestinal: Reports as per HPI, Reports early satiety, Reports loss of appetite, Denies abdominal pain, Denies diarrhea, Denies nausea, Denies vomiting Musculoskeletal: Denies myalgias Integumentary: Denies pruritus, Denies rash Neurological: Denies numbness, Denies weakness Psychiatric: Denies anxiety, Denies depression Endocrine: Denies fatigue, Denies weight change Past Medical History Past Medical History: Cancer, Hyperlipidemia, Hypertension, Prostate Disorder, Thyroid Disorder Additional Past Medical History / Comment(s): ANEMIA-. had an episode of vertigo in May 2019. Esophageal cancer. Radiation therapy - Aug 2019 History of Any Multi-Drug Resistant Organisms: None Reported Additional Past Surgical History / Comment(s): COLONOSCOPY. PROSTATE BX Past Anesthesia/Blood Transfusion Reactions: No Reported Reaction Past Psychological History: No Psychological Hx Reported Smoking Status: Current every day smoker Past Alcohol Use History: Rare Additional Past Alcohol Use History / Comment(s): SMOKES 1/2 PPD SINCE AGE 18 Past Drug Use History: None Reported - Past Family History Mother Family Medical History: No Reported History Medications and Allergies Home Medications Medication Instructions Recorded Confirmed Type Aspirin [Adult Low Dose Aspirin EC] 81 mg PO DAILY 10/16/16 09/19/19 History Finasteride [Proscar] 5 mg PO DAILY 10/16/16 09/19/19 History Lisinopril 40 mg PO HS 10/16/16 09/19/19 History Simvastatin [Zocor] 40 mg PO SUMOWEFR 10/16/16 09/19/19 History Terazosin [Hytrin] 2 mg PO QAM 10/16/16 09/19/19 History amLODIPine [Norvasc] 10 mg PO HS 10/16/16 09/19/19 History Levothyroxine Sodium [Synthroid] 75 mcg PO QAM 06/01/19 09/19/19 History Calcium Carbonate [Calcium] 600 mg PO DAILY 09/19/19 09/19/19 History Multivitamins, Thera [Multivitamin 1 tab PO DAILY 09/19/19 09/19/19 History (formulary)] Naproxen Sodium 220 mg PO DAILY PRN 09/19/19 09/19/19 History Allergies Allergy/AdvReac Type Severity Reaction Status Date / Time No Known Allergies Allergy Verified 09/20/19 10:33 Physical Exam Vitals: Vital Signs Temp Pulse Resp BP Pulse Ox 09/21/19 15:01 93 22 09/21/19 14:51 93 22 110/65 92 L 09/21/19 12:00 68 18 121/64 96 09/21/19 08:00 98.2 F 98 18 106/65 94 L 09/21/19 03:46 98.1 F 86 20 115/69 99 09/21/19 00:00 97.5 F L 82 18 115/69 100 Intake and Output 09/21/19 09/21/19 09/21/19 06:59 14:59 22:59 Intake Total 240 118 Balance 240 118 Intake: Oral 240 118 Other: Voiding Method Toilet Toilet Toilet Diaper Diaper Diaper # Voids 2 Weight 60.4 kg General: thin white male in NAD. Vitals reviewed Eyes: PERRL, EOMI, conjunctiva normal HENT: normocephalic, mucus membranes moist Neck: supple, no JVD Lungs: normal respiratory effort, no wheezes or rales CV: Regular rate and rhythm, no murmur. Peripheral pulses 2+ Abdomen: soft, nondistended, no organomegaly Lymph: no cervical or axillary LAD Skin: warm and dry. Neuro: A&Ox3, normal mood and affect Results CBC & Chem 7: 09/21/19 05:41 09/21/19 05:41 Labs: Abnormal Lab Results - Last 24 Hours (Table) 09/20/19 09/21/19 09/21/19 Range/Units 12:20 05:41 05:41 WBC 18.5 H (3.8-10.6) k/uL RBC 2.95 L (4.30-5.90) m/uL Hgb 8.8 L (13.0-17.5) gm/dL Hct 28.4 L (39.0-53.0) % Neutrophils # 17.7 H (1.3-7.7) k/uL Lymphocytes # 0.2 L (1.0-4.8) k/uL Sodium 136 L (137-145) mmol/L Carbon Dioxide 32 H (22-30) mmol/L BUN 42 H (9-20) mg/dL Calcium 11.7 H (8.4-10.2) mg/dL Total Bilirubin 1.9 H (0.2-1.3) mg/dL Alkaline Phosphatase 185 H (38-126) U/L Total Protein 5.3 L (6.3-8.2) g/dL Albumin 2.4 L (3.5-5.0) g/dL Procalcitonin 0.84 H (0.02-0.09) ng/mL Thrombosis Risk Factor Assmnt - Choose All That Apply Each Risk Factor Represents 2 Points: Age 61-74 years Thrombosis Risk Factor Assessment Total Risk Factor Score: 2 Thrombosis Risk Factor Assessment Level: Low Risk Assessment and Plan (1) Hypercalcemia of malignancy Current Visit: Yes Status: Acute Code(s): E83.52 - HYPERCALCEMIA SNOMED Code(s): 17239927 (2) Community acquired pneumonia Current Visit: Yes Status: Acute Code(s): J18.9 - PNEUMONIA, UNSPECIFIED ORGANISM SNOMED Code(s): 234188250 (3) ANALY (acute kidney injury) Current Visit: Yes Status: Acute Code(s): N17.9 - ACUTE KIDNEY FAILURE, UNSPECIFIED SNOMED Code(s): 25451608 (4) Elevated alkaline phosphatase level Current Visit: Yes Status: Acute Code(s): R74.8 - ABNORMAL LEVELS OF OTHER SERUM ENZYMES SNOMED Code(s): 327731203 Plan: 1. Leukocytosis, hypoxia, suspect community acquired pneumonia. CXR without obvious infiltrate and pt otherwise asymptomatic. Start on ceftriaxone and azithromycin empirically. Follow blood cultures. ID and surgery consulted 2. Hypercalcemia of malignancy. IV fluid hydration. Hematology consult 3. Hypothyroidism. Continue synthroid DVT prophylaxis heparin
--- NOTE | 2019-09-21 23:36 | P.CONS ---
History of Present Illness - Reason for Consult Consult date: 09/21/19 malignant hypercalcemia, metastatic esophageal cancer - History of Present Illness The pt is a 64 yr old WM, with overall well controlled medical problems who had presented in 06/10 with a syncopal episode. As part of his workup he had a CT scan of the chest done to rule out pulmonary embolus. It was negative for the same, but did show some irregular thickening of the mid to distal thoracic esophagus. CT of the brain was negative. The patient was therefore referred to Dr Back for further workup. He had an EGD on 08/11/19. He was found to have an obstructing mass starting at around 30 cm beyond which the endoscope could not be passed. There was liquid retained in the esophagus proximal to the mass. Biopsy was positive for moderately differentiated adenocarcinoma with some fungal colonization. The patient was therefore referred here, and also to radiation oncology. He had a PET scan done on 08/26/19, showing uptake in the primary site, precarinal lymph node measuring 1.8 x 1 cm, multiple hepatic metastatic lesions, and at least right iliac bone metastasis confirming stage IV disease The patient seen for his initial consult in 09/08/19. He had already been seen by radiation oncology, and started on palliative radiation to the distal esophagus, and the right hip. He completed palliative RT on 09/15/19. There is no prior history of malignancy. The patient is able to swallow liquid and semisolid food. He had an EGD about one half years prior at which time he had a hernia was found. He however denies any obvious symptoms of gastroesophageal reflux. The patient had lost about 50 pounds over the past year but stated that weight had been overall stable since at least early 08/10. His tumor was HER-2 equivocal, and positive for PD-1. He was supposed to start chemo on 09/25/19 with FOLFOX - Herceptin, and was admitted for port placement. However, labs showed hypercalcemia in the 13-14 range. The pt was hypoxic with low BP. He was thus admitted for further management and consult placed. His labs outpt had shown hypercalcemia in the 12-13 range. Xgeva was ordered , which he received on 09/19/19. Review of Systems Constitutional: Reports chronic pain, Reports fatigue, Reports poor appetite, Reports weakness, Reports weight loss Eyes: denies blurred vision, denies pain Ears: deny: decreased hearing, ear discharge, earache, tinnitus Ears, nose, mouth and throat: Reports dysphagia, Denies headache, Denies sore throat Cardiovascular: Reports shortness of breath Respiratory: Reports dyspnea Gastrointestinal: Reports as per HPI Genitourinary: Reports as per HPI, Reports urinary hesitancy Musculoskeletal: Reports muscle weakness Musculoskeletal: right: hip pain Integumentary: Denies pruritus, Denies rash Neurological: Reports weakness Psychiatric: Denies anxiety, Denies depression Endocrine: Reports fatigue, Reports weight change Hematologic/Lymphatic: Reports as per HPI Past Medical History Past Medical History: Cancer, Hyperlipidemia, Hypertension, Prostate Disorder, Thyroid Disorder Additional Past Medical History / Comment(s): ANEMIA-. had an episode of vertigo in May 2019. Esophageal cancer. Radiation therapy - Aug 2019 History of Any Multi-Drug Resistant Organisms: None Reported Additional Past Surgical History / Comment(s): COLONOSCOPY. PROSTATE BX Past Anesthesia/Blood Transfusion Reactions: No Reported Reaction Past Psychological History: No Psychological Hx Reported Smoking Status: Current every day smoker Past Alcohol Use History: Rare Additional Past Alcohol Use History / Comment(s): SMOKES 1/2 PPD SINCE AGE 18 Past Drug Use History: None Reported - Past Family History Mother Family Medical History: No Reported History Medications and Allergies Home Medications Medication Instructions Recorded Confirmed Type Aspirin [Adult Low Dose Aspirin EC] 81 mg PO DAILY 10/16/16 09/19/19 History Finasteride [Proscar] 5 mg PO DAILY 10/16/16 09/19/19 History Lisinopril 40 mg PO HS 10/16/16 09/19/19 History Simvastatin [Zocor] 40 mg PO SUMOWEFR 10/16/16 09/19/19 History Terazosin [Hytrin] 2 mg PO QAM 10/16/16 09/19/19 History amLODIPine [Norvasc] 10 mg PO HS 10/16/16 09/19/19 History Levothyroxine Sodium [Synthroid] 75 mcg PO QAM 06/01/19 09/19/19 History Calcium Carbonate [Calcium] 600 mg PO DAILY 09/19/19 09/19/19 History Multivitamins, Thera [Multivitamin 1 tab PO DAILY 09/19/19 09/19/19 History (formulary)] Naproxen Sodium 220 mg PO DAILY PRN 09/19/19 09/19/19 History Allergies Allergy/AdvReac Type Severity Reaction Status Date / Time No Known Allergies Allergy Verified 09/20/19 10:33 Physical Exam Vitals: Vital Signs Temp Pulse Resp BP Pulse Ox 09/21/19 15:01 93 22 09/21/19 14:51 93 22 110/65 92 L 09/21/19 12:00 68 18 121/64 96 09/21/19 08:00 98.2 F 98 18 106/65 94 L 09/21/19 03:46 98.1 F 86 20 115/69 99 09/21/19 00:00 97.5 F L 82 18 115/69 100 Intake and Output 09/21/19 09/21/19 09/22/19 14:59 22:59 06:59 Intake Total 118 Balance 118 Intake: Oral 118 Other: Voiding Method Toilet Toilet Diaper Diaper - Constitutional General appearance: no acute distress - EENT Eyes: EOMI, PERRLA ENT: hearing grossly normal, normal oropharynx - Neck Neck: no lymphadenopathy Thyroid: bilateral: normal size - Respiratory Respiratory: bilateral: diminished - Cardiovascular Rhythm: regular Heart sounds: normal: S1, S2 - Gastrointestinal General gastrointestinal: normal bowel sounds, soft - Integumentary Integumentary: normal - Neurologic lethargic, arousable, responses appropriate Neurologic: CNII-XII intact - Musculoskeletal Musculoskeletal: generalized weakness, strength equal bilaterally - Psychiatric Psychiatric: A&O x's 3, appropriate affect Results CBC & Chem 7: 09/21/19 05:41 09/21/19 05:41 Labs: Abnormal Lab Results - Last 24 Hours (Table) 09/20/19 09/21/19 09/21/19 Range/Units 12:20 05:41 05:41 WBC 18.5 H (3.8-10.6) k/uL RBC 2.95 L (4.30-5.90) m/uL Hgb 8.8 L (13.0-17.5) gm/dL Hct 28.4 L (39.0-53.0) % Neutrophils # 17.7 H (1.3-7.7) k/uL Lymphocytes # 0.2 L (1.0-4.8) k/uL Sodium 136 L (137-145) mmol/L Carbon Dioxide 32 H (22-30) mmol/L BUN 42 H (9-20) mg/dL Calcium 11.7 H (8.4-10.2) mg/dL Total Bilirubin 1.9 H (0.2-1.3) mg/dL Alkaline Phosphatase 185 H (38-126) U/L Total Protein 5.3 L (6.3-8.2) g/dL Albumin 2.4 L (3.5-5.0) g/dL Procalcitonin 0.84 H (0.02-0.09) ng/mL Chest x-ray: report reviewed Assessment and Plan (1) Hypercalcemia of malignancy Narrative/Plan: The pt had elevated Ca ++ due to malignancy, as an outpt and Xgeva was ordered. Per the EMR, he has already received this on 09/19/19. Ca ++ is still elevated, but has decreased with hydration - Confirm that pt has received Xgeva. If so the peak effect may take upto a few days to manifest. - Hydration with 0.9 NS - Utilise calcitonin if needed Current Visit: Yes Status: Acute Code(s): E83.52 - HYPERCALCEMIA SNOMED Code(s): 12423300 (2) ANALY (acute kidney injury) Narrative/Plan: Likely due to hypercalcemia and dehydration. Improved with hydration. Continue to follow Current Visit: Yes Status: Acute Code(s): N17.9 - ACUTE KIDNEY FAILURE, UNSPECIFIED SNOMED Code(s): 97033702 (3) SIRS (systemic inflammatory response syndrome) Narrative/Plan: The pt had presented with hypoxia and hypotension. He was started on empiric abx by the admitting service for possible pneumonia. He is at risk for aspiration. I will also check for VTE, as he is at risk for the same Current Visit: Yes Status: Acute Code(s): R65.10 - SIRS OF NON-INFECTIOUS ORIGIN W/O ACUTE ORGAN DYSFUNCTION SNOMED Code(s): 849730722 (4) Esophageal cancer, stage IV Narrative/Plan: Course so far described in the HPI. He has noted partial improvement in his rt hip pain, but remains quite limited re functioning. The pt is to start chemo once acute condition is sufficiently resolved. Current Visit: Yes Status: Acute Code(s): C15.9 - MALIGNANT NEOPLASM OF ESOPHAGUS, UNSPECIFIED SNOMED Code(s): 918943413 (5) Anemia aplastic aregenerative Narrative/Plan: Anemia in the 10 range was present as an outpt, with w/u indicative of anemia of malignancy/inflammation. The drop in hgb from baseline is likely due to drop in renal function, and possible infection. Continue to monitor and transfuse if Hgb < 7 Current Visit: Yes Status: Acute Code(s): D61.9 - APLASTIC ANEMIA, UNSPECIFIED SNOMED Code(s): 29837802
--- NOTE | 2019-09-22 00:08 | P.CONS ---
History of Present Illness - Reason for Consult Consult date: 09/21/19 infection unknown source Requesting physician: Ricardo Juarez - Chief Complaint weakness x days - History of Present Illness Patient is a 64-year-old male with a past medical history negative for esophageal cancer in this patient was a current everyday smoker he has been electively admitted to the hospital for right subclavian portacatheter placement which was completed yesterday patient has been afebrile however he was noticed to have elevated white count as well as elevated CRP and procalcitonin patient did have a chest x-ray which he also no definite consolidation or pleural effusion with concern for possible infection the patient started on Rocephin and Zithromax infectious disease was consulted for further recommendation of antibiotic and possible source of infection patient at this point mentioned he has been hurting all over the patient denies any headache or URI symptom denies having any chest pain he did have minimal cough but no sputum no nausea no vomiting no abdominal pain or any diarrhea and no urinary symptoms. Review of Systems Positive point has been mentioned HPI rest of the systems are negative Past Medical History Past Medical History: Cancer, Hyperlipidemia, Hypertension, Prostate Disorder, Thyroid Disorder Additional Past Medical History / Comment(s): ANEMIA-. had an episode of vertigo in May 2019. Esophageal cancer. Radiation therapy - Aug 2019 History of Any Multi-Drug Resistant Organisms: None Reported Additional Past Surgical History / Comment(s): COLONOSCOPY. PROSTATE BX Past Anesthesia/Blood Transfusion Reactions: No Reported Reaction Past Psychological History: No Psychological Hx Reported Smoking Status: Current every day smoker Past Alcohol Use History: Rare Additional Past Alcohol Use History / Comment(s): SMOKES 1/2 PPD SINCE AGE 18 Past Drug Use History: None Reported - Past Family History Mother Family Medical History: No Reported History Medications and Allergies Home Medications Medication Instructions Recorded Confirmed Type Aspirin [Adult Low Dose Aspirin EC] 81 mg PO DAILY 10/16/16 09/19/19 History Finasteride [Proscar] 5 mg PO DAILY 10/16/16 09/19/19 History Lisinopril 40 mg PO HS 10/16/16 09/19/19 History Simvastatin [Zocor] 40 mg PO SUMOWEFR 10/16/16 09/19/19 History Terazosin [Hytrin] 2 mg PO QAM 10/16/16 09/19/19 History amLODIPine [Norvasc] 10 mg PO HS 10/16/16 09/19/19 History Levothyroxine Sodium [Synthroid] 75 mcg PO QAM 06/01/19 09/19/19 History Calcium Carbonate [Calcium] 600 mg PO DAILY 09/19/19 09/19/19 History Multivitamins, Thera [Multivitamin 1 tab PO DAILY 09/19/19 09/19/19 History (formulary)] Naproxen Sodium 220 mg PO DAILY PRN 09/19/19 09/19/19 History Allergies Allergy/AdvReac Type Severity Reaction Status Date / Time No Known Allergies Allergy Verified 09/20/19 10:33 Physical Exam Vitals: Vital Signs Temp Pulse Resp BP Pulse Ox 09/21/19 20:00 98.7 F 100 20 105/72 100 09/21/19 15:01 93 22 09/21/19 14:51 93 22 110/65 92 L 09/21/19 12:00 68 18 121/64 96 09/21/19 08:00 98.2 F 98 18 106/65 94 L 09/21/19 03:46 98.1 F 86 20 115/69 99 09/21/19 00:00 97.5 F L 82 18 115/69 100 Intake and Output 09/21/19 09/21/19 09/22/19 14:59 22:59 06:59 Intake Total 118 Balance 118 Intake: Oral 118 Other: Voiding Method Toilet Toilet Diaper Diaper GENERAL DESCRIPTION: Elderly male lying in bed, no distress. No tachypnea or accessory muscle of respiration use. HEENT: Shows Pallor , no scleral icterus. Oral mucous membrane is dry. No pharyngeal erythema or thrush NECK: Trachea central, no thyromegaly. LUNGS: Unlabored breathing. Decreased breath sound at the base. No wheeze or crackle. HEART: S1, S2, regular rate and rhythm. No loud murmur ABDOMEN: Soft, no tenderness , guarding or rigidity, no organomegaly EXTREMITIES: No edema of feet. SKIN: No rash, no masses palpable. NEUROLOGICAL: The patient is awake, alert, oriented x3, mood and affect normal. Results CBC & Chem 7: 09/21/19 05:41 09/21/19 05:41 Labs: Abnormal Lab Results - Last 24 Hours (Table) 09/20/19 09/21/19 09/21/19 Range/Units 12:20 05:41 05:41 WBC 18.5 H (3.8-10.6) k/uL RBC 2.95 L (4.30-5.90) m/uL Hgb 8.8 L (13.0-17.5) gm/dL Hct 28.4 L (39.0-53.0) % Neutrophils # 17.7 H (1.3-7.7) k/uL Lymphocytes # 0.2 L (1.0-4.8) k/uL Sodium 136 L (137-145) mmol/L Carbon Dioxide 32 H (22-30) mmol/L BUN 42 H (9-20) mg/dL Calcium 11.7 H (8.4-10.2) mg/dL Total Bilirubin 1.9 H (0.2-1.3) mg/dL Alkaline Phosphatase 185 H (38-126) U/L Total Protein 5.3 L (6.3-8.2) g/dL Albumin 2.4 L (3.5-5.0) g/dL Procalcitonin 0.84 H (0.02-0.09) ng/mL Assessment and Plan Assessment: 1-patient with leukocytosis along with elevated inflammatory markers with concern for possible infection in this patient who did have a history of esophageal cancer admitted to the hospital for Port-A-Cath placement likely etiology could be aspiration pneumonitis versus oropharyngeal candidiasis at the patient currently with no obvious focus is abdominal soft clinical examination urine were checked and no evidence of any cellulitis (1) Leukocytosis Current Visit: Yes Status: Acute Code(s): D72.829 - ELEVATED WHITE BLOOD CELL COUNT, UNSPECIFIED SNOMED Code(s): 599826981 Plan: 1-blood cultures x2 2-check a UA and culture 3-empirically add Unasyn and Diflucan discontinue Rocephin and Zithromax 4-IV fluid We will follow on clinical condition and cultures to further adjust medication if needed Thank you for this consultation will follow this patient along with you Time with Patient: Greater than 30
--- NOTE | 2019-09-22 01:23 | CT ---
EXAMINATION TYPE: CT angio chest DATE OF EXAM: 09/22/2019 COMPARISON: 06/01/2019 HISTORY: Poss PE Chest pain CT DLP: 335.2 mGycm Automated exposure control for dose reduction was used. CONTRAST: Performed with IV Contrast, patient injected with 70 mL of Isovue 370. There are 3-D post processed images. There is no sign of mediastinal adenopathy. There is no pericardial effusion. There is large hiatal h ernia. There is fluid-filled mid and lower thoracic esophagus. There are small pleural effusions. The re is bilateral basilar atelectasis. Thoracic aorta is intact without evidence of aneurysm or dissect ion. There is normal contrast opacification of the pulmonary arteries. I see no filling defect. There is s ome spurring in the thoracic spine. The ribs appear intact. IMPRESSION: No evidence of pulmonary embolism. Mild atelectasis at the lung bases with small pleural effusions. D ilated lower esophagus with fluid could relate to significant reflux disease. Hiatal hernia. Pleural fluid and atelectasis is new compared to old CT scan. Dilated esophagus not significantly different. No suspicious pulmonary mass.
[2019-09-22] MEDS: AMPICILLIN-SULBACTAM 3 GM in SODIUM CHLORIDE 0.9% 100 ML IVPB SCH ×4 (01:30→18:19)
[2019-09-22 03:15] LABS: Appearance,Urine Clear (Clear); Bilirubin,Urine Negative (Negative); Blood,Urine Negative (Negative); Color,Urine Yellow; Glucose,Urine (UA) Negative (Negative); Ketones,Urine Negative (Negative); Leukocyte Esterase,Urine Negative (Negative); Nitrite,Urine Negative (Negative); Protein,Urine Negative (Negative); Specific Gravity,Urine 1.024 (1.001-1.035)
[2019-09-22] MEDS: FLUCONAZOLE IN NACL,ISO-OSM 200 MG in SALINE 1 100ML.BAG IVPB SCH ×2 (04:00→21:54)
[2019-09-22 06:30] LABS: Basophils % (A) 0 %; Eosinophils % (A) 0 %; HCT 25.7 % (39.0-53.0); Lymphocytes # (A) 0.2 k/uL (1.0-4.8); Lymphocytes % (A) 1 %; MCH 29.9 pg (25.0-35.0); MCHC 31.3 g/dL (31.0-37.0); MCV 95.6 fL (80.0-100.0); Mean Platelet Volume 8.3; Monocytes # (A) 0.5 k/uL (0-1.0); Monocytes % (A) 3 %; Neutrophils # (A) 13.4 k/uL (1.3-7.7); Neutrophils % (A) 95 %; Platelet Count 184 k/uL (150-450); RBC 2.68 m/uL (4.30-5.90); WBC 14.1 k/uL (3.8-10.6)
[2019-09-22 06:43] LABS: ALT 28 U/L (4-49); AST 29 U/L (17-59); African American GFR (CKD) >90 (>60 ml/min/1.73 sqM); Albumin 2.1 g/dL (3.5-5.0); Alkaline Phosphatase 172 U/L (38-126); Anion Gap 4 mmol/L; Blood Urea Nitrogen 28 mg/dL (9-20); Calcium 10.4 mg/dL (8.4-10.2); Carbon Dioxide 28 mmol/L (22-30); Chloride 105 mmol/L (98-107); Glucose 71 mg/dL (74-99); Non-African American GFR(CKD) 84 (>60 ml/min/1.73 sqM); Potassium 3.3 mmol/L (3.5-5.1); Sodium 137 mmol/L (137-145); Total Bilirubin 1.3 mg/dL (0.2-1.3); Total Protein 4.7 g/dL (6.3-8.2)
[2019-09-22] MEDS: FINASTERIDE 5 MG TAB PO SCH (08:51)
[2019-09-22] MEDS: HEPARIN SODIUM,PORCINE 5,000 UNIT/ML 1 ML VIAL SQ SCH ×2 (08:51→20:52)
[2019-09-22] MEDS: LEVOTHYROXINE 75 MCG TAB PO SCH (08:51)
[2019-09-22] MEDS ORDERED: AZITHROMYCIN 500 MG in SODIUM CHLORIDE 0.9% 250 ML IVPB SCH (09:00)
[2019-09-22] MEDS ORDERED: NA PHOS,M-B/NA PHOS,DI-BA 133 ML ENEMA RECTAL ONE (11:34)
[2019-09-22] MEDS ORDERED: HYDROcodone/APAP 5-325MG 1 EACH TAB PO PRN (12:50)
--- NOTE | 2019-09-22 15:42 | P.PN ---
Progress Note - Text Progress Note Date: 09/22/19 The patient's complaining he has had a difficult time passing his bowels. He is requesting an enema On exam his vital signs appear stable. His abdomen soft. Minimal tenderness Esophageal cancer. Patient is receiving fluid hydration. He'll be discharged home per Dr. martinez. He will have a Fleet enema today.
--- NOTE | 2019-09-22 16:36 | P.PN ---
Subjective Progress Note Date: 09/22/19 Principal diagnosis: hypercalcemia, esophageal adenocarcinoma In f/u today pt is feeling better, he had a very large BM last night/today, mild MARVIN, generalized weakness, worried about his son handling his care. Objective - Vital Signs Vital signs: Vital Signs Temp 97.9 F 09/22/19 16:00 Pulse 65 09/22/19 16:00 Resp 18 09/22/19 16:00 BP 132/65 09/22/19 16:00 Pulse Ox 94 L 09/22/19 16:00 Intake & Output 09/21/19 09/22/19 09/22/19 18:59 06:59 18:59 Intake Total 118 440 Output Total 325 Balance 118 115 Weight 62.6 kg Intake: Oral 118 440 Output: Urine 325 Other: Voiding Method Toilet Toilet Toilet Diaper Diaper Diaper # Voids 1 1 # Bowel Movements 1 - Constitutional General appearance: Present: cooperative, no acute distress, thin - EENT Eyes: Present: anicteric sclerae, edentulous, poor dentition ENT: Present: hearing grossly normal - Respiratory Respiratory: bilateral: diminished (weak inspiratory effort) - Cardiovascular Details: moderate finger clubbing, nicotine stains Heart sounds: normal: S1, S2 - Peripheral edema leg Peripheral Edema: bilateral: None - Gastrointestinal General gastrointestinal: Present: normal bowel sounds, soft - Musculoskeletal Musculoskeletal: Present: generalized weakness - Psychiatric Psychiatric: Present: A&O x's 3, intact judgment & insight - Labs CBC & Chem 7: 09/22/19 06:01 09/22/19 06:01 Labs: Abnormal Lab Results - Last 24 Hours (Table) 09/22/19 09/22/19 Range/Units 06:01 06:01 WBC 14.1 H (3.8-10.6) k/uL RBC 2.68 L (4.30-5.90) m/uL Hgb 8.0 L (13.0-17.5) gm/dL Hct 25.7 L (39.0-53.0) % Neutrophils # 13.4 H (1.3-7.7) k/uL Lymphocytes # 0.2 L (1.0-4.8) k/uL Potassium 3.3 L (3.5-5.1) mmol/L BUN 28 H (9-20) mg/dL Glucose 71 L (74-99) mg/dL Calcium 10.4 H (8.4-10.2) mg/dL Alkaline Phosphatase 172 H (38-126) U/L Total Protein 4.7 L (6.3-8.2) g/dL Albumin 2.1 L (3.5-5.0) g/dL Microbiology - Last 24 Hours (Table) 09/21/19 12:52 Blood Culture - Preliminary Blood No Growth after 24 hours 09/21/19 12:59 Blood Culture - Preliminary Blood No Growth after 24 hours - Imaging and Cardiology CT scan - chest: report reviewed Assessment and Plan (1) Hypercalcemia of malignancy Narrative/Plan: Conf[facility] He will receive on schedule outpatient Calcium level down to 10.4 today. Patient has improved symptoms of hypercalcemia. Current Visit: Yes Status: Acute Priority: High Code(s): E83.52 - HYPERCALCEMIA SNOMED Code(s): 91294091 (2) Leukocytosis Narrative/Plan: Neutrophilia, mild, likely related to acute infection (suspecting a pneumonia), on treatment for the same Current Visit: Yes Status: Acute Priority: High Code(s): D72.829 - ELEVATED WHITE BLOOD CELL COUNT, UNSPECIFIED SNOMED Code(s): 990003324 (3) Anemia aplastic aregenerative Narrative/Plan: Anemia of inflammation/malignancy. Transfuse to keep hemoglobin 7 or higher. Continue to monitor while inpatient. Patient will be monitored on an outpatient basis Current Visit: Yes Status: Acute Priority: High Code(s): D61.9 - APLASTIC ANEMIA, UNSPECIFIED SNOMED Code(s): 94655711 (4) Esophageal cancer, stage IV Narrative/Plan: Patient was being seen on an outpatient basis to have a port placed to begin treatment for esophageal adenocarcinoma. He is being treated currently for sepsis/[place] with improvement in his presenting symptoms on abx, cultures negative. Current Visit: Yes Status: Acute Priority: High Code(s): C15.9 - MALIGNANT NEOPLASM OF ESOPHAGUS, UNSPECIFIED SNOMED Code(s): 228294738 (5) SIRS (systemic inflammatory response syndrome) Narrative/Plan: Pt doing well on abx. Current Visit: Yes Status: Acute Priority: Medium Code(s): R65.10 - SIRS OF NON-INFECTIOUS ORIGIN W/O ACUTE ORGAN DYSFUNCTION SNOMED Code(s): 135044551
[2019-09-22] MEDS ORDERED: Potassium Replacement Protocol 1 EACH MISC MISCELLANE PRN (17:58)
--- NOTE | 2019-09-22 17:58 | P.PN ---
Subjective Progress Note Date: 09/22/19 Genaro Cuevas is a 64 yo M with PMH of esophageal cancer, hypothyroidism who presented to the hospital for a scheduled medport insertion. He underwent this procedure successfully with Dr. Back on 09/20/19. After the procedure he was noted to be hypoxic to 88% on room air with pressures as low as 70/52 and blood work was drawn which revealed WBC 17k, Cr 1.35, Calcium 13.3, CRP 145, procalcitonin 0.8. Pt is essentially asymptomatic and aside from significant fatigue and inability to tolerate solids due to his cancer; denies chest pain, sore throat, cough, fever, chills, abdominal pain, diarrhea. He is admitted for further evaluation and management. 09/22/2019 maintained on gentle IV fluid hydration. Evaluated by infectious disease with the antibiotics adjusted, currently on Unasyn and Diflucan. Afebrile, WBC trending down, 14.1 UA negative, blood cultures in progress complaining of pain greater on his right side aggravated by movement, asking for pain medication. Positive bowel movement today. Denies abdominal pain. Denies chest pain, palpitations or increased shortness of breath. Hemoglobin 8. Renal function continues to improve.Potassium 3.3. Objective - Vital Signs Vital signs: Vital Signs Temp 98 F 09/22/19 16:00 Pulse 84 09/22/19 16:00 Resp 18 09/22/19 16:00 BP 108/70 09/22/19 16:00 Pulse Ox 94 L 09/22/19 16:00 Intake & Output 09/21/19 09/22/19 09/22/19 18:59 06:59 18:59 Intake Total 118 440 Output Total 325 Balance 118 115 Weight 62.6 kg Intake: Oral 118 440 Output: Urine 325 Other: Voiding Method Toilet Toilet Toilet Diaper Diaper Diaper # Voids 1 1 # Bowel Movements 1 - Exam General: thin white male in NAD, generalized weakness. Vitals reviewed Eyes: PERRL, EOMI, conjunctiva normal HENT: normocephalic, mucus membranes moist Neck: supple, no JVD Lungs: normal respiratory effort, no wheezes or rales CV: Regular rate and rhythm, no murmur. Peripheral pulses 2+ Abdomen: soft, nondistended, no organomegaly Lymph: no cervical or axillary LAD Skin: warm and dry. Neuro: A&Ox3, normal mood and affect Microbiology 09/21/19 12:52 Blood Blood Culture - Preliminary No Growth after 24 hours 09/21/19 12:59 Blood Blood Culture - Preliminary No Growth after 24 hours - Labs CBC & Chem 7: 09/22/19 06:01 09/22/19 06:01 Labs: Abnormal Lab Results - Last 24 Hours (Table) 09/22/19 09/22/19 Range/Units 06:01 06:01 WBC 14.1 H (3.8-10.6) k/uL RBC 2.68 L (4.30-5.90) m/uL Hgb 8.0 L (13.0-17.5) gm/dL Hct 25.7 L (39.0-53.0) % Neutrophils # 13.4 H (1.3-7.7) k/uL Lymphocytes # 0.2 L (1.0-4.8) k/uL Potassium 3.3 L (3.5-5.1) mmol/L BUN 28 H (9-20) mg/dL Glucose 71 L (74-99) mg/dL Calcium 10.4 H (8.4-10.2) mg/dL Alkaline Phosphatase 172 H (38-126) U/L Total Protein 4.7 L (6.3-8.2) g/dL Albumin 2.1 L (3.5-5.0) g/dL Microbiology - Last 24 Hours (Table) 09/21/19 12:52 Blood Culture - Preliminary Blood No Growth after 24 hours 09/21/19 12:59 Blood Culture - Preliminary Blood No Growth after 24 hours Assessment and Plan Assessment: (1) Hypercalcemia of malignancy Current Visit: Yes Status: Acute Code(s): E83.52 - HYPERCALCEMIA SNOMED Code(s): 74015990 (2) Community acquired pneumonia Current Visit: Yes Status: Acute Code(s): J18.9 - PNEUMONIA, UNSPECIFIED ORGANISM SNOMED Code(s): 469770634 (3) ANALY (acute kidney injury) Current Visit: Yes Status: Acute Code(s): N17.9 - ACUTE KIDNEY FAILURE, UNSPECIFIED SNOMED Code(s): 30780444 (4) Elevated alkaline phosphatase level Current Visit: Yes Status: Acute Code(s): R74.8 - ABNORMAL LEVELS OF OTHER SERUM ENZYMES SNOMED Code(s): 343251803 (5) Esophageal cancer, stage IV Plan: Continue on current medication regime ,monitoring and symptomatic treatment. Pain management-[place] added to med regime. Potassium supplementation ordered. Follow cultures closely. Maintain antibiotics as per infectious disease. Close monitoring of renal function, electrolytes, coags with repeat labs ordered for a.m. The impression and plan of care has been dictated as directed. : I performed a history and examination of this patient, discussed the same with the dictator. I agree with the dictator's note ,documented as a scribe. Any additional findings or plans will be noted.
[2019-09-22] MEDS ORDERED: Magnesium Replacement Protocol 1 EACH MISC MISCELLANE PRN (17:59)
[2019-09-22] MEDS: SODIUM CHLORIDE 0.9% 1,000 ML IV SCH (18:20)
[2019-09-22 21:52] VITALS: RESP 16
--- NOTE | 2019-09-22 23:04 | PN ---
PROGRESS NOTE DATE OF SERVICE: 09/22/2019 REASON FOR FOLLOWUP: Leukocytosis, possible aspiration pneumonitis. INTERVAL HISTORY: The patient is currently afebrile, has been breathing comfortably. Denies any chest pain. Occasional cough. No nausea, vomiting and no diarrhea. PHYSICAL EXAMINATION: Blood pressure 100/67, pulse of 86, temperature 98.1. He is 100% on room air. General description is an elderly male up in the chair in no distress. Respiratory system: Unlabored breathing, decreased breath sounds in the bases. No wheeze. Heart S1, S2. Regular rate and rhythm. Abdomen soft. No tenderness. LABS: Hemoglobin 18, white count 14.1, BUN of 28, creatinine 0.5. DIAGNOSTIC IMPRESSION AND PLAN: Patient with leukocytosis and elevated inflammatory markers likely aspiration pneumonitis in this who patient did have esophageal cancer with a CT did shows dilated esophageal fluid level. The patient with no other clinical focus of infection. White count responded to Unasyn. That will continue and we will monitor his clinical course closely. MMODL / IJN: [id number] /
[2019-09-23] MEDS: SODIUM CHLORIDE 0.9% 1,000 ML IV SCH ×4 (00:29→17:39)
[2019-09-23] MEDS: AMPICILLIN-SULBACTAM 3 GM in SODIUM CHLORIDE 0.9% 100 ML IVPB SCH ×4 (00:29→17:38)
[2019-09-23] MEDS: LEVOTHYROXINE 75 MCG TAB PO SCH (05:51)
[2019-09-23 08:07] LABS: Basophils % (A) 0 %; Eosinophils % (A) 0 %; HGB 8.2 gm/dL (13.0-17.5); Hypochromasia Slight; Lymphocytes # (A) 0.1 k/uL (1.0-4.8); Lymphocytes % (A) 1 %; MCH 30.5 pg (25.0-35.0); MCHC 31.4 g/dL (31.0-37.0); MCV 97.1 fL (80.0-100.0); Mean Platelet Volume 8.4; Monocytes # (A) 0.6 k/uL (0-1.0); Monocytes % (A) 4 %; Neutrophils # (A) 14.9 k/uL (1.3-7.7); Neutrophils % (A) 95 %; Platelet Count 159 k/uL (150-450); RBC 2.68 m/uL (4.30-5.90); RDW 14.3 % (11.5-15.5); WBC 15.8 k/uL (3.8-10.6)
[2019-09-23 08:15] LABS: ALT 29 U/L (4-49); AST 31 U/L (17-59); African American GFR (CKD) >90 (>60 ml/min/1.73 sqM); Alkaline Phosphatase 190 U/L (38-126); Anion Gap 3 mmol/L; Blood Urea Nitrogen 20 mg/dL (9-20); Calcium 9.6 mg/dL (8.4-10.2); Carbon Dioxide 28 mmol/L (22-30); Chloride 108 mmol/L (98-107); Glucose 68 mg/dL (74-99); Magnesium 2.3 mg/dL (1.6-2.3); Non-African American GFR(CKD) >90 (>60 ml/min/1.73 sqM); Potassium 3.6 mmol/L (3.5-5.1); Sodium 139 mmol/L (137-145); Total Bilirubin 1.4 mg/dL (0.2-1.3); Total Protein 4.9 g/dL (6.3-8.2)
[2019-09-23] MEDS: HEPARIN SODIUM,PORCINE 5,000 UNIT/ML 1 ML VIAL SQ SCH ×2 (08:47→21:35)
[2019-09-23] MEDS: FINASTERIDE 5 MG TAB PO SCH (08:47)
[2019-09-23] MEDS ORDERED: IPRATROPIUM-ALBUTEROL 3 ML NEB INHALATION PRN (13:49)
[2019-09-23] MEDS ORDERED: ALPRAZolam 0.25 MG TAB PO PRN (13:50)
[2019-09-23] MEDS ORDERED: TEMAZEPAM 15 MG CAP PO PRN (13:50)
--- NOTE | 2019-09-23 14:04 | P.PN ---
Subjective Progress Note Date: 09/23/19 Principal diagnosis: Esophageal cancer Patient states he is feeling better. He is having some cough with production at times. He is afebrile. CT chest noted. Objective - Vital Signs Vital signs: Vital Signs Temp 97.7 F 09/23/19 11:16 Pulse 83 09/23/19 11:16 Resp 16 09/23/19 11:16 BP 100/64 09/23/19 11:16 Pulse Ox 99 09/23/19 11:16 Intake & Output 09/22/19 09/23/19 09/23/19 18:59 06:59 18:59 Intake Total 440 2690 Output Total 325 Balance 115 2690 Intake: Intake, IV Titration 1800 Amount Ampicillin-Sulbactam 3 gm 200 In Sodium Chloride 0.9% 100 ml @ 200 mls/hr IVPB Q6HR [facility] Rx#:[id number] Fluconazole in NaCl,Iso- 100 Osm 200 mg In Saline 1 100ml.bag @ 100 mls/hr IVPB HS [facility] Rx#:[id number] Sodium Chloride 0.9% 1, 1500 000 ml @ 125 mls/hr IV . Q8H [facility] Rx#:[id number] Oral 440 890 Output: Urine 325 Other: Voiding Method Toilet Bedside Commode Bedside Commode Diaper Diaper Diaper # Voids 1 3 1 # Bowel Movements 1 1 - Exam Right chest incision clean and dry - Labs CBC & Chem 7: 09/23/19 07:30 09/23/19 07:30 Labs: Abnormal Lab Results - Last 24 Hours (Table) 09/22/19 09/23/19 09/23/19 Range/Units 06:01 07:30 07:30 WBC 15.8 H (3.8-10.6) k/uL RBC 2.68 L (4.30-5.90) m/uL Hgb 8.2 L (13.0-17.5) gm/dL Hct 26.0 L (39.0-53.0) % Neutrophils # 14.9 H (1.3-7.7) k/uL Lymphocytes # 0.1 L (1.0-4.8) k/uL Chloride 108 H (98-107) mmol/L Glucose 68 L (74-99) mg/dL Magnesium 2.5 H (1.6-2.3) mg/dL Total Bilirubin 1.4 H (0.2-1.3) mg/dL Alkaline Phosphatase 190 H (38-126) U/L Total Protein 4.9 L (6.3-8.2) g/dL Albumin 2.0 L (3.5-5.0) g/dL Microbiology - Last 24 Hours (Table) 09/21/19 12:52 Blood Culture - Preliminary Blood No Growth after 24 hours 09/21/19 12:59 Blood Culture - Preliminary Blood No Growth after 24 hours Assessment and Plan Plan: Patient overall doing fairly well. Surgical site healing nicely. Will follow on an as-needed basis.
--- NOTE | 2019-09-23 14:55 | PN ---
PROGRESS NOTE DATE OF SERVICE: 09/23/2019 I am covering for Dr. Juarez. This 64-year-old gentleman with a past medical history of esophageal carcinoma, awaiting chemotherapy next week, was admitted with features of bilateral pneumonia, possibly aspiration. The patient is on broad-spectrum IV antibiotics. Chest CTA did not show any acute pulmonary embolism. The patient is followed by multiple consultants, including Hematology/Oncology. The patient had a Port-A-Cath placement, also. Past medical history reviewed. REVIEW OF SYSTEMS: CARDIOVASCULAR SYSTEM: As mentioned earlier. RESPIRATORY SYSTEM: As mentioned earlier. GI: No nausea, vomiting. : No dysuria or retention. NERVOUS SYSTEM: No numbness, weakness. CURRENT MEDICATIONS: Reviewed. They include: 1. [place] 5 mg q.6 p.r.n. 2. Unasyn q.6. 3. Proscar 5 mg p.o. daily. 4. Fluconazole. 5. Heparin. 6. Synthroid. 7. Magnesium. PHYSICAL EXAMINATION: Patient is alert, oriented x3. Pulse 83, blood pressure 100/64, respirations 16, temperature 97.7, pulse ox 99% on room air. HEENT: Conjunctivae pale. Oral mucosa moist. NECK: No jugular venous distention. CARDIOVASCULAR SYSTEM: S1, S2 muffled. RESPIRATORY SYSTEM: Breath sounds diminished at the bases. Bilateral scattered rhonchi and crackles. ABDOMEN: Soft, scaphoid, non-tender. LEGS: No edema. No swelling. NERVOUS SYSTEM: Diffusely weak and wasted. LABS: WBC 15.8, hemoglobin 8.2, sodium 139, potassium 3.6. Calcium was 13.3 on admission. Other labs are noted. ASSESSMENT: 1. Bilateral pneumonia, possibly aspiration, with sepsis and acute hypoxic respiratory failure, present on admission. 2. Carcinoma of esophagus. 3. Acute kidney injury, multifactorial, prerenal, acute tubular necrosis. 4. Hypercalcemia of malignancy, multifactorial, improved. 5. Increased white count. 6. Anemia, normocytic. 7. Elevated total bilirubin. 8. Increased CRP. 9. Hypoalbuminemia with severe protein-calorie malnutrition. 10.History of hypertension. 11.Hyperlipidemia. 12.Benign prostatic hypertrophy. 13.History of vertigo. 14.History of nicotine dependence, continued ongoing. 15.Relative hypotension. Will continue to monitor. Further recommendations to follow. RECOMMENDATIONS AND DISCUSSION: In this 64-year-old gentleman who presented with multiple complex medical issues, we will monitor the patient closely, continue the current medications, continue symptomatic treatment. I would recommend cutting down the IV fluids. Continue the broad-spectrum IV antibiotics, bronchodilators. Otherwise, continue the antifungals. Proton pump inhibitors. DVT prophylaxis. See orders for details. Guarded prognosis. Further recommendations to follow. Resume the home medications. The blood pressure is still low. MMODL / IJN: [id number] /
[2019-09-23] MEDS: IPRATROPIUM-ALBUTEROL 3 ML NEB INHALATION SCH (18:49)
[2019-09-23] MEDS: FLUCONAZOLE IN NACL,ISO-OSM 200 MG in SALINE 1 100ML.BAG IVPB SCH (21:35)
--- NOTE | 2019-09-24 00:19 | PN ---
PROGRESS NOTE DATE OF SERVICE: 09/23/2019 REASON FOR FOLLOWUP: Possible aspiration pneumonitis. INTERVAL HISTORY: The patient is currently afebrile, has been breathing comfortably. The patient denies having any chest pain wound shortness of breath. Very minimal cough. No nausea, no vomiting. No abdominal pain or diarrhea. EXAMINATION: Blood pressure is 100/64 with a pulse of 83, temperature 97.7, he is 99% on room air. General description is an elderly male lying in bed in no distress. Respiratory system: Unlabored breathing. Decreased breath intensity in the bases. No wheeze. Heart S1, S2. Regular rate and rhythm. ABDOMEN: Soft, no tenderness. EXTREMITIES: No edema of feet. LABS: Hemoglobin is 8.2, white count 15.8. BUN of 20, creatinine 0.42. Blood culture has been negative. DIAGNOSTIC IMPRESSION AND PLAN: Patient with elevated white count as well as inflammatory markers in this patient who did have a history of esophageal cancer with question of possible aspiration pneumonitis. The patient is currently on Unasyn. White count did show some downward trend that will be monitored closely. Continue supportive care. MMODL / IJN: [id number] /
[2019-09-24] MEDS: AMPICILLIN-SULBACTAM 3 GM in SODIUM CHLORIDE 0.9% 100 ML IVPB SCH ×5 (00:20→23:30)
[2019-09-24 01:47] LABS: Glucose,Whole Blood 123 mg/dL (75-99)
[2019-09-24] MEDS: LEVOTHYROXINE 75 MCG TAB PO SCH (05:02)
[2019-09-24 07:27] LABS: Basophils % (A) 0 %; Eosinophils % (A) 0 %; HCT 23.3 % (39.0-53.0); HGB 7.4 gm/dL (13.0-17.5); Lymphocytes # (A) 0.2 k/uL (1.0-4.8); Lymphocytes % (A) 1 %; MCH 30.2 pg (25.0-35.0); MCHC 31.7 g/dL (31.0-37.0); MCV 95.4 fL (80.0-100.0); Mean Platelet Volume 8.7; Monocytes # (A) 0.5 k/uL (0-1.0); Monocytes % (A) 4 %; Neutrophils # (A) 13.1 k/uL (1.3-7.7); Neutrophils % (A) 94 %; Platelet Count 145 k/uL (150-450); RBC 2.44 m/uL (4.30-5.90); RDW 14.7 % (11.5-15.5); WBC 13.9 k/uL (3.8-10.6)
[2019-09-24 07:36] LABS: African American GFR (CKD) >90 (>60 ml/min/1.73 sqM); Anion Gap 5 mmol/L; Blood Urea Nitrogen 16 mg/dL (9-20); Calcium 8.6 mg/dL (8.4-10.2); Carbon Dioxide 24 mmol/L (22-30); Chloride 107 mmol/L (98-107); Glucose 80 mg/dL (74-99); Non-African American GFR(CKD) >90 (>60 ml/min/1.73 sqM); Sodium 136 mmol/L (137-145)
[2019-09-24] MEDS: IPRATROPIUM-ALBUTEROL 3 ML NEB INHALATION SCH ×3 (07:50→20:50)
[2019-09-24] MEDS: PANTOPRAZOLE 40 MG TABLET PO SCH (09:47)
[2019-09-24] MEDS: MULTIVITAMINS, THERA 1 EACH TAB PO SCH (09:47)
[2019-09-24] MEDS: FINASTERIDE 5 MG TAB PO SCH (09:47)
[2019-09-24] MEDS: SODIUM CHLORIDE 0.9% 1,000 ML IV SCH ×3 (09:48→23:33)
[2019-09-24] MEDS: HEPARIN SODIUM,PORCINE 5,000 UNIT/ML 1 ML VIAL SQ SCH ×2 (09:48→20:15)
[2019-09-24] MEDS: POTASSIUM CHLORIDE ER 20 MEQ TAB.ER PO SCH ×2 (13:21→14:45)
--- NOTE | 2019-09-24 19:50 | PN ---
PROGRESS NOTE DATE OF SERVICE: 09/24/2019 I am covering for Dr. Juarez. This 64-year-old gentleman was admitted with esophageal carcinoma had possible bilateral pneumonia, possibly aspiration in nature. The patient also was found to have acute hypoxic respiratory failure, present on admission. Patient on broad spectrum IV antibiotics. Patient being closely monitored. Multiple consultants are following the patient closely including Infectious Disease and surgery and Hematology/Oncology. PAST MEDICAL HISTORY: Reviewed. REVIEW OF SYSTEMS: Cardiovascular system: No angina or palpitations. RESPIRATORY: As mentioned earlier. GASTROINTESTINAL: As mentioned earlier. : As mentioned earlier. CENTRAL NERVOUS SYSTEM: No numbness or weakness. CURRENT MEDICATIONS: Reviewed and include: 1. [place] 5 mg q.6h p.r.n. 2. DuoNeb q.i.d. and p.r.n. 3. Xanax 0.25 t.i.d. 4. Unasyn 3 grams IV q.8. 5. Proscar 5 mg p.o. daily. 6. Fluconazole 100 mg daily. 7. Heparin. 8. Synthroid 75 mcg p.o. daily. 9. Protonix 40 mg. 10.Restoril 50 mg p.o. q.h.s. PHYSICAL EXAMINATION: Alert and oriented times three. Pulse 97, blood pressure 108/60. Respirations 16, temperature 97.6. Pulse ox 100 percent on room air. HEENT: Conjunctivae normal. NECK: No JVD. CARDIOVASCULAR: S1, S2 muffled. RESPIRATORY: Breath sounds diminished in the bases. Bilateral scattered rhonchi and crackles. Expiratory wheezing also present. ABDOMEN: Soft, nontender. LEGS are no edema. No swelling. CENTRAL NERVOUS SYSTEM: No focal deficits. LABS: WBC 13.2, hemoglobin 7.4. ASSESSMENT: 1. Bilateral pneumonia possibly aspiration with sepsis and acute hypoxic respiratory failure present on admission. 2. Carcinoma of the esophagus. 3. Acute kidney injury, multifactorial, prerenal, acute tubular necrosis. 4. Hypercalcemia malignancy, multifactorial improved. 5. Increased WBC. 6. Anemia, normocytic. 7. Elevated total bilirubin. 8. Increased CRP. 9. Hypoalbuminemia with severe protein calorie malnutrition. 10.History of hypertension. 11.Hyperlipidemia. 12.History of benign prostatic hypertrophy. 13.History of vertigo. 14.History of nicotine dependence, continued ongoing. 15.Relative hypotension. RECOMMENDATIONS AND DISCUSSION: In this 64-year-old gentleman who presented with multiple complex medical issues, we will monitor the patient closely, continue the current medications, patient on broad spectrum IV antibiotics. I recommend to continue the current medications. Aspiration precautions. Otherwise, the cultures are negative so far. I recommend repeat labs. Hemoglobin 7.4, if hemoglobin less than 7, the patient may need transfusion. Otherwise closely monitor. Supplement nutrition supplements. Dietary evaluation. Guarded prognosis. Further recommendations to follow. See orders for details. DVT prophylaxis. MMODL / IJN: [id number] /
[2019-09-24] MEDS: FLUCONAZOLE IN NACL,ISO-OSM 200 MG in SALINE 1 100ML.BAG IVPB SCH (20:15)
[2019-09-25] MEDS: LEVOTHYROXINE 75 MCG TAB PO SCH (05:29)
[2019-09-25] MEDS: AMPICILLIN-SULBACTAM 3 GM in SODIUM CHLORIDE 0.9% 100 ML IVPB SCH (05:29)
[2019-09-25 05:40] VITALS: BP 109/66; TEMP 98
[2019-09-25] MEDS: IPRATROPIUM-ALBUTEROL 3 ML NEB INHALATION SCH ×2 (05:50→13:24)
[2019-09-25 08:02] LABS: African American GFR (CKD) >90 (>60 ml/min/1.73 sqM); Anion Gap 5 mmol/L; Blood Urea Nitrogen 14 mg/dL (9-20); Calcium 7.9 mg/dL (8.4-10.2); Carbon Dioxide 21 mmol/L (22-30); Chloride 111 mmol/L (98-107); Glucose 73 mg/dL (74-99); Non-African American GFR(CKD) >90 (>60 ml/min/1.73 sqM); Potassium 3.3 mmol/L (3.5-5.1); Sodium 137 mmol/L (137-145)
[2019-09-25] MEDS: FINASTERIDE 5 MG TAB PO SCH (08:25)
[2019-09-25] MEDS: MULTIVITAMINS, THERA 1 EACH TAB PO SCH (08:25)
[2019-09-25] MEDS: HEPARIN SODIUM,PORCINE 5,000 UNIT/ML 1 ML VIAL SQ SCH (08:25)
[2019-09-25] MEDS: PANTOPRAZOLE 40 MG TABLET PO SCH (08:25)
[2019-09-25 09:50] LABS: Basophils % (A) 0 %; Eosinophils % (A) 0 %; HCT 23.1 % (39.0-53.0); HGB 7.2 gm/dL (13.0-17.5); Lymphocytes # (A) 0.2 k/uL (1.0-4.8); Lymphocytes % (A) 1 %; MCH 30.1 pg (25.0-35.0); MCHC 31.2 g/dL (31.0-37.0); MCV 96.4 fL (80.0-100.0); Mean Platelet Volume 9.2; Monocytes # (A) 0.4 k/uL (0-1.0); Monocytes % (A) 2 %; Neutrophils # (A) 14.9 k/uL (1.3-7.7); Neutrophils % (A) 96 %; Platelet Count 127 k/uL (150-450); RBC 2.39 m/uL (4.30-5.90); RDW 14.9 % (11.5-15.5); WBC 15.5 k/uL (3.8-10.6)
--- NOTE | 2019-09-25 10:45 | PN ---
PROGRESS NOTE DATE OF SERVICE: 09/24/2019 REASON FOR FOLLOWUP: Leukocytosis, possible aspiration pneumonitis. INTERVAL HISTORY: The patient is currently afebrile, has been breathing comfortably. Did have some cough but no sputum. No nausea, no vomiting. No abdominal pain, no diarrhea. PHYSICAL EXAMINATION: Blood pressure 138/68 with a pulse of 97, temperature 97.5, he is 97% on room air. General description is an elderly male, lying in bed in no distress. RESPIRATORY SYSTEM: Unlabored breathing. Decreased breath sounds in the bases, no wheeze. HEART: S1, S2. Regular rate and rhythm. ABDOMEN: Soft, no tenderness. LABS: Hemoglobin is 7.4, white count of 13.9, BUN of 16, creatinine 0.80. DIAGNOSTIC IMPRESSION AND PLAN: Patient with leukocytosis, multifactorial, possible aspiration pneumonitis. The patient is currently covered with Unasyn. White count down to 13,000. Finish therapy with a short course of oral Augmentin. Continue supportive care. MMODL / IJN: [id number] /
[2019-09-25 11:12] VITALS: PULSE 87
--- NOTE | 2019-09-25 14:56 | P.DS ---
Providers Expected date of discharge: 09/25/19 Attending physician: Ricardo Juarez MD Consults: 09/20/19 13:13 Consult Physician Urgent Consulting Provider: Phoenix Weeks Consult Reason/Comments: ESOPHAGEAL CANCER ABNROMAL LABS Do you want consulting provider notified?: Yes 09/21/19 10:58 Consult Physician Routine Consulting Provider: Malik Nunez Consult Reason/Comments: infection of unknown origin, antibiotic choice Do you want consulting provider notified?: Yes Primary care physician: Padmini Juarez [facility] Course: Final Diagnoses: (1) Hypercalcemia of malignancy, improved Current Visit: Yes Status: Acute Code(s): E83.52 - HYPERCALCEMIA SNOMED Code(s): 21707818 (2) Community acquired pneumonia, possible aspiration pneumonitis Current Visit: Yes Status: Acute Code(s): J18.9 - PNEUMONIA, UNSPECIFIED ORGANISM SNOMED Code(s): 626260633 (3) ANALY (acute kidney injury) Current Visit: Yes Status: Acute Code(s): N17.9 - ACUTE KIDNEY FAILURE, UNSPECIFIED SNOMED Code(s): 68349906 (4) Elevated alkaline phosphatase level Current Visit: Yes Status: Acute Code(s): R74.8 - ABNORMAL LEVELS OF OTHER SERUM ENZYMES SNOMED Code(s): 588721190 (5) Esophageal cancer, stage IV Hospital course:Genaro Cuevas is a 64 yo M with PMH of esophageal cancer, hypothyroidism who presented to the hospital for a scheduled medport insertion. He underwent this procedure successfully with Dr. Back on 09/20/19. After the procedure he was noted to be hypoxic to 88% on room air with pressures as low as 70/52 and blood work was drawn which revealed WBC 17k, Cr 1.35, Calcium 13.3, CRP 145, procalcitonin 0.8. Pt is essentially asymptomatic and aside from significant fatigue and inability to tolerate solids due to his cancer; denies chest pain, sore throat, cough, fever, chills, abdominal pain, diarrhea. He is admitted for further evaluation and management. Evaluated by multiple consults, oncology, surgery, infectious disease Maintained IV fluid hydration and IV antibiotics. Significant clinical improvement. Patient is being discharged home in a stable condition with guarded prognosis, pending clearance of all consults. - Exam General: A&O X 3, NAD Lungs: normal respiratory effort, no wheezes or rales CV: Regular rate and rhythm, no murmur. Peripheral pulses 2+ Abdomen: soft, nondistended, no organomegaly Neuro:No FOcal def. The impression and plan of care has been dictated as directed. : I performed a history and examination of this patient, discussed the same with the dictator. I agree with the dictator's note ,documented as a scribe. Any additional findings or plans will be noted. Patient Condition at Discharge: Stable Plan - Discharge Summary Discharge Rx Participant: No New Discharge Prescriptions: Continue Finasteride [Proscar] 5 mg PO DAILY Simvastatin [Zocor] 40 mg PO SUMOWEFR Levothyroxine Sodium [Synthroid] 75 mcg PO QAM Multivitamins, Thera [Multivitamin (formulary)] 1 tab PO DAILY Calcium Carbonate [Calcium] 600 mg PO DAILY Discontinued amLODIPine [Norvasc] 10 mg PO HS Terazosin [Hytrin] 2 mg PO QAM Discharge Medication List Finasteride [Proscar] 5 mg PO DAILY 10/16/16 [History] Simvastatin [Zocor] 40 mg PO SUMOWEFR 10/16/16 [History] Levothyroxine Sodium [Synthroid] 75 mcg PO QAM 06/01/19 [History] Calcium Carbonate [Calcium] 600 mg PO DAILY 09/19/19 [History] Multivitamins, Thera [Multivitamin (formulary)] 1 tab PO DAILY 09/19/19 [History] Follow up Appointment(s)/Referral(s): Phoenix Weeks MD [STAFF PHYSICIAN] - 09/26/19 11:00 am (This appt is at the [facility]. This a CHEMOTHERAPY EDUCATION SESSION, patient will NOT be seeing Doctor this day. ) Jesus Manuel Back MD [STAFF PHYSICIAN] - 09/28/19 1:50 pm Ambulatory/Diagnostic Orders: Complete Blood Count w/diff [LAB.AMB] Time Frame: 3 Days, Location: None Selected Patient Instructions/Handouts: Implanted Venous Access Port (DC), How to Care for Your Implanted Venous Access Port (DC) Activity/Diet/Wound Care/Special Instructions: Pending oncology and ID final DC recommendations and clearance. Antibiotics as per ID Discharge Disposition: HOME SELF-CARE
--- NOTE | 2019-09-25 17:55 | P.PN ---
Subjective Progress Note Date: 09/25/19 Principal diagnosis: hypercalcemia, esophageal adenocarcinoma In f/u today pt is feeling better, getting ready for discharge. Objective - Vital Signs Vital signs: Vital Signs Temp 98 F 09/25/19 05:00 Pulse 87 09/25/19 08:00 Resp 16 09/25/19 08:00 BP 109/66 09/25/19 05:00 Pulse Ox 93 L 09/25/19 05:50 Intake & Output 09/24/19 09/25/19 09/25/19 18:59 06:59 18:59 Intake Total 900 2190 Output Total 1100 Balance 900 1090 Intake: Intake, IV Titration 900 1600 Amount Ampicillin-Sulbactam 3 gm 200 100 In Sodium Chloride 0.9% 100 ml @ 200 mls/hr IVPB Q6HR [facility] Rx#:[id number] Sodium Chloride 0.9% 1, 700 000 ml @ 0 mls/hr IV .STK -MED ONE Rx#:[id number] Sodium Chloride 0.9% 1, 1500 000 ml @ 125 mls/hr IV . Q8H [facility] Rx#:[id number] Oral 590 Output: Urine 1100 Other: Voiding Method Bedside Commode Bedside Commode Bedside Commode Diaper Urinal Urinal Diaper Diaper # Voids 1 5 - Exam WD, thin, frail, NAD, A&Ox4. - Labs CBC & Chem 7: 09/25/19 08:49 09/25/19 06:39 Labs: Abnormal Lab Results - Last 24 Hours (Table) 09/25/19 09/25/19 Range/Units 06:39 08:49 WBC 15.5 H (3.8-10.6) k/uL RBC 2.39 L (4.30-5.90) m/uL Hgb 7.2 L (13.0-17.5) gm/dL Hct 23.1 L (39.0-53.0) % Plt Count 127 L (150-450) k/uL Neutrophils # 14.9 H (1.3-7.7) k/uL Lymphocytes # 0.2 L (1.0-4.8) k/uL Potassium 3.3 L (3.5-5.1) mmol/L Chloride 111 H (98-107) mmol/L Carbon Dioxide 21 L (22-30) mmol/L Glucose 73 L (74-99) mg/dL Calcium 7.9 L (8.4-10.2) mg/dL Microbiology - Last 24 Hours (Table) 09/21/19 12:52 Blood Culture - Preliminary Blood No Growth after 96 hours 09/21/19 12:59 Blood Culture - Preliminary Blood No Growth after 96 hours Assessment and Plan (1) Hypercalcemia of malignancy Narrative/Plan: Confirmed documentation of of Xgeva at [facility] on September 19. He will receive on schedule outpatient Calcium level down to 7.9 today. Patient has improved symptoms of hypercalcemia. Status: Acute Priority: High Code(s): E83.52 - HYPERCALCEMIA SNOMED Code(s): 35821210 (2) Leukocytosis Narrative/Plan: Neutrophilia, mild, likely related to acute infection (suspecting a pneumonia), on treatment for the same Status: Acute Priority: High Code(s): D72.829 - ELEVATED WHITE BLOOD CELL COUNT, UNSPECIFIED SNOMED Code(s): 246975441 (3) Anemia aplastic aregenerative Narrative/Plan: Anemia of inflammation/malignancy. Transfuse to keep hemoglobin 7 or higher. Continue to monitor while inpatient. Patient will be monitored on an outpatient basis Status: Acute Priority: High Code(s): D61.9 - APLASTIC ANEMIA, UNSPECIFIED SNOMED Code(s): 99739509 (4) Esophageal cancer, stage IV Narrative/Plan: Patient was being seen on an outpatient basis to have a port placed to begin treatment for esophageal adenocarcinoma. Pt has chemo appt. Status: Acute Priority: High Code(s): C15.9 - MALIGNANT NEOPLASM OF ESOPHAGUS, UNSPECIFIED SNOMED Code(s): 418234761 (5) SIRS (systemic inflammatory response syndrome) Narrative/Plan: Pt doing well on abx. Status: Acute Priority: Medium Code(s): R65.10 - SIRS OF NON-INFECTIOUS ORIGIN W/O ACUTE ORGAN DYSFUNCTION SNOMED Code(s): 409972430
== END 2019-09-25 14:35 | disposition home or self-care (01) ==
LOC: OR 10:14 → 3SCARD 17:48 → 5NMEDONC 09-22 17:16 → OR 09-24 19:13
PROVIDERS: ATTEND Family Medicine
DX: C15.9 Malignant neoplasm of esophagus, unspecified (principal); E83.52 Hypercalcemia; J18.9 Pneumonia, unspecified organism; R74.8 Abnormal levels of other serum enzymes; E03.9 Hypothyroidism, unspecified; D61.9 Aplastic anemia, unspecified; I10 Essential (primary) hypertension; E78.5 Hyperlipidemia, unspecified; F17.210 Nicotine dependence, cigarettes, uncomplicated; R65.10 Systemic inflammatory response syndrome (SIRS) of non-infectious origin without acute organ dysfunction; D72.829 Elevated white blood cell count, unspecified; J96.01 Acute respiratory failure with hypoxia; N17.0 Acute kidney failure with tubular necrosis; E43 Unspecified severe protein-calorie malnutrition; N40.0 Benign prostatic hyperplasia without lower urinary tract symptoms; C78.7 Secondary malignant neoplasm of liver and intrahepatic bile duct; C79.51 Secondary malignant neoplasm of bone; J98.11 Atelectasis; J90 Pleural effusion, not elsewhere classified; K22.8 Other specified diseases of esophagus; K21.9 Gastro-esophageal reflux disease without esophagitis; K44.9 Diaphragmatic hernia without obstruction or gangrene; Z79.890 Hormone replacement therapy; Z79.899 Other long term (current) drug therapy; Z92.3 Personal history of irradiation; Z79.82 Long term (current) use of aspirin; Z79.1 Long term (current) use of non-steroidal anti-inflammatories (NSAID); Z79.2 Long term (current) use of antibiotics; Z79.01 Long term (current) use of anticoagulants; Z86.69 Personal history of other diseases of the nervous system and sense organs
CPT/HCPCS: 94640; 94760; 97530; 97535; 97166; 80053 ×4; 80048 ×2; 83735 ×2; 85025 ×6; 86140; 81003; 87040; 84145; 77001; 71045; 36561; C1788; S0138 ×5; J2250; J1644 ×6; J1642; J1100; J2405; J0696; J1450 ×3; J0295 ×4; Q9967

== ENCOUNTER 2019-10-10 10:32 | Inpatient (IN) | payer MEDICARE, OTHER ==
[2019-10-10] MEDS ORDERED: SODIUM CHLORIDE 0.9% 500 ML 500 ML IV SCH (12:15)
--- NOTE | 2019-10-10 12:29 | ED ---
General Adult HPI - General Chief complaint: Extremity Injury, Lower Stated complaint: foot infection Time Seen by Provider: 10/10/19 11:49 Source: patient, RN notes reviewed Mode of arrival: wheelchair - History of Present Illness Initial comments: 64-year-old male with a past medical history of hyperlipidemia, hypertension, esophageal cancer currently receiving chemotherapy with first dose being one week ago presents to the emergency department for blistering feet. Son states that patient had a port placed about 3 weeks ago. States that since that time patient has had increased swelling of his legs testicles. Son states that these did improve however he still swelling in his lower legs. States that they have been blistering and draining. States that on 2 days ago he noticed this was significantly worse. Patient has not noticed any fevers.Patient has no other c omplaints at this time including shortness of breath, chest pain, abdominal pain, nausea or vomiting, headache, or visual changes. - Related Data Home Medications Medication Instructions Recorded Confirmed Finasteride [Proscar] 5 mg PO DAILY 10/16/16 10/03/19 Simvastatin [Zocor] 40 mg PO SUMOWEFR 10/16/16 10/03/19 Levothyroxine Sodium [Synthroid] 75 mcg PO QAM 06/01/19 10/03/19 Calcium Carbonate [Calcium] 600 mg PO DAILY 09/19/19 10/03/19 Multivitamins, Thera [Multivitamin 1 tab PO DAILY 09/19/19 10/03/19 (formulary)] Naproxen Sodium 220 mg PO DIRECTED PRN 10/03/19 10/03/19 HYDROcodone/APAP 5-325MG [[place] 1 tab PO Q6HR PRN 10/04/19 10/04/19 5-325] Allergies Allergy/AdvReac Type Severity Reaction Status Date / Time No Known Allergies Allergy Verified 10/10/19 11:11 Review of Systems ROS Statement: Those systems with pertinent positive or pertinent negative responses have been documented in the HPI. ROS Other: All systems not noted in ROS Statement are negative. Past Medical History Past Medical History: Cancer, Hyperlipidemia, Hypertension, Pneumonia, Prostate Disorder, Thyroid Disorder Additional Past Medical History / Comment(s): ANEMIA-. had an episode of vertigo in May 2019. Esophageal cancer. Radiation therapy - Aug 2019. Pneumonia - 2019 History of Any Multi-Drug Resistant Organisms: None Reported Additional Past Surgical History / Comment(s): COLONOSCOPY. PROSTATE BX, port placement Past Anesthesia/Blood Transfusion Reactions: No Reported Reaction Past Psychological History: No Psychological Hx Reported Smoking Status: Current every day smoker Past Alcohol Use History: Rare Past Drug Use History: None Reported - Past Family History Mother Family Medical History: No Reported History General Exam General appearance: alert, in no apparent distress Head exam: Present: atraumatic, normocephalic, normal inspection Eye exam: Present: normal appearance, PERRL, EOMI. Absent: scleral icterus, conjunctival injection, periorbital swelling ENT exam: Present: normal exam, mucous membranes moist Neck exam: Present: normal inspection, full ROM. Absent: tenderness, meningismus, lymphadenopathy Respiratory exam: Present: normal lung sounds bilaterally. Absent: respiratory distress, wheezes, rales, rhonchi, stridor Cardiovascular Exam: Present: regular rate, normal rhythm, normal heart sounds. Absent: systolic murmur, diastolic murmur, rubs, gallop, clicks Extremities exam: Present: other (Patient has erythema and blistering noted of lower extremities bilaterally) Course Vital Signs 10/10/19 11:05 Temperature 97.2 F L Pulse Rate 61 Respiratory 18 Rate Blood Pressure 99/67 O2 Sat by Pulse 94 L Oximetry Medical Decision Making - Medical Decision Making Vitals are stable. CBC does show anemia at 8.1 however this is improved. Platelet count 36 which is decreased from previous labs. CMP does show acute kidney injury with a creatinine of 1.52. Baseline is 0.7-0.8. Lactic acidosis of 7.7. Patient was given 30 mL/kg of fluids. He was also started on Rocephin and vancomycin. Chest x-ray obtained showed no acute process. Discussed case with Dr. Molina. We will admit patient for bilateral lower extremity infection in lactic acidosis. - Lab Data Result diagrams: 10/10/19 12:04 10/10/19 12:04 Lab Results 10/10/19 10/10/19 10/10/19 Range/Units 12:04 12:04 12:04 WBC 4.3 (3.8-10.6) k/uL RBC 2.75 L (4.30-5.90) m/uL Hgb 8.1 L D (13.0-17.5) gm/dL Hct 25.8 L (39.0-53.0) % MCV 94.0 (80.0-100.0) fL MCH 29.6 (25.0-35.0) pg MCHC 31.4 (31.0-37.0) g/dL RDW 15.9 H (11.5-15.5) % Plt Count 36 L D (150-450) k/uL Neutrophils % 85 % Lymphocytes % 11 % Monocytes % 2 % Eosinophils % 0 % Basophils % 0 % Neutrophils # 3.6 (1.3-7.7) k/uL Lymphocytes # 0.5 L (1.0-4.8) k/uL Monocytes # 0.1 (0-1.0) k/uL Eosinophils # 0.0 (0-0.7) k/uL Basophils # 0.0 (0-0.2) k/uL Manual Slide Review Performed Large Platelets Present Hypochromasia Slight PT (9.0-12.0) sec INR (<1.2) APTT (22.0-30.0) sec Sodium 133 L (137-145) mmol/L Potassium 5.1 (3.5-5.1) mmol/L Chloride 102 (98-107) mmol/L Carbon Dioxide 16 L (22-30) mmol/L Anion Gap 15 mmol/L BUN 63 H (9-20) mg/dL Creatinine 1.52 H (0.66-1.25) mg/dL Est GFR (CKD-EPI)AfAm 55 (>60 ml/min/1.73 sqM) Est GFR (CKD-EPI)NonAf 48 (>60 ml/min/1.73 sqM) Glucose 94 (74-99) mg/dL Plasma Lactic Acid Mohinder 5.7 H* (0.7-2.0) mmol/L Calcium 7.4 L (8.4-10.2) mg/dL Total Bilirubin 2.5 H (0.2-1.3) mg/dL AST 29 (17-59) U/L ALT 24 (4-49) U/L Alkaline Phosphatase 231 H (38-126) U/L NT-Pro-B Natriuret Pep pg/mL Total Protein 5.8 L (6.3-8.2) g/dL Albumin 2.5 L (3.5-5.0) g/dL 10/10/19 10/10/19 Range/Units 12:04 12:04 WBC (3.8-10.6) k/uL RBC (4.30-5.90) m/uL Hgb (13.0-17.5) gm/dL Hct (39.0-53.0) % MCV (80.0-100.0) fL MCH (25.0-35.0) pg MCHC (31.0-37.0) g/dL RDW (11.5-15.5) % Plt Count (150-450) k/uL Neutrophils % % Lymphocytes % % Monocytes % % Eosinophils % % Basophils % % Neutrophils # (1.3-7.7) k/uL Lymphocytes # (1.0-4.8) k/uL Monocytes # (0-1.0) k/uL Eosinophils # (0-0.7) k/uL Basophils # (0-0.2) k/uL Manual Slide Review Large Platelets Hypochromasia PT 14.0 H (9.0-12.0) sec INR 1.4 H (<1.2) APTT 25.6 (22.0-30.0) sec Sodium (137-145) mmol/L Potassium (3.5-5.1) mmol/L Chloride (98-107) mmol/L Carbon Dioxide (22-30) mmol/L Anion Gap mmol/L BUN (9-20) mg/dL Creatinine (0.66-1.25) mg/dL Est GFR (CKD-EPI)AfAm (>60 ml/min/1.73 sqM) Est GFR (CKD-EPI)NonAf (>60 ml/min/1.73 sqM) Glucose (74-99) mg/dL Plasma Lactic Acid Mohinder (0.7-2.0) mmol/L Calcium (8.4-10.2) mg/dL Total Bilirubin (0.2-1.3) mg/dL AST (17-59) U/L ALT (4-49) U/L Alkaline Phosphatase (38-126) U/L NT-Pro-B Natriuret Pep 418 pg/mL Total Protein (6.3-8.2) g/dL Albumin (3.5-5.0) g/dL Disposition Clinical Impression: Cellulitis, Lower extremity edema Disposition: ADMITTED IP TO THIS HOSP Condition: Fair Is patient prescribed a controlled substance at d/c from ED?: No Referrals: Padmini Juarez DO [Primary Care Provider] - 1-2 days Time of Disposition: 13:17
[2019-10-10 12:35] LABS: Basophils % (A) 0 %; Eosinophils % (A) 0 %; HCT 25.8 % (39.0-53.0); HGB 8.1 gm/dL (13.0-17.5); Hypochromasia Slight; Lymphocytes # (A) 0.5 k/uL (1.0-4.8); Lymphocytes % (A) 11 %; MCH 29.6 pg (25.0-35.0); MCHC 31.4 g/dL (31.0-37.0); Monocytes # (A) 0.1 k/uL (0-1.0); Monocytes % (A) 2 %; Neutrophils # (A) 3.6 k/uL (1.3-7.7); Neutrophils % (A) 85 %; RBC 2.75 m/uL (4.30-5.90); RDW 15.9 % (11.5-15.5); WBC 4.3 k/uL (3.8-10.6)
[2019-10-10 12:37] LABS: INR 1.4 (<1.2); Partial Thromboplastin Time 25.6 sec (22.0-30.0)
[2019-10-10 12:38] LABS: Albumin 2.5 g/dL (3.5-5.0); Calcium 7.4 mg/dL (8.4-10.2); Potassium 5.1 mmol/L (3.5-5.1); Total Bilirubin 2.5 mg/dL (0.2-1.3); Total Protein 5.8 g/dL (6.3-8.2)
--- NOTE | 2019-10-10 12:56 | XR ---
EXAMINATION TYPE: XR chest 2V DATE OF EXAM: 10/10/2019 COMPARISON: 09/20/2019 HISTORY: 64-year-old male with lower extremity edema TECHNIQUE: AP and lateral views FINDINGS: Leftward patient rotation alters the normal cardiac and mediastinal contours. Right anterior chest wa ll injection port with subclavian access tip at the brachiocephalic vein confluence. Heart appears no rmal size. Prominent left first rib end. Right-sided nipple shadow as no right basilar nodule was see n on the 09/22/2019 CT. No consolidation or pleural effusion. IMPRESSION: Limited, rotated exam. Nipple shadow at the right base. No acute process seen.
[2019-10-10] MEDS ORDERED: SODIUM CHLORIDE 0.9% 2,000 ML IV STA (13:01)
[2019-10-10 13:04] LABS: Large Platelets Present; Platelet Count 36 k/uL (150-450)
[2019-10-10] MEDS ORDERED: cefTRIAXone IN SWFI 1,000 MG/10 ML SYRINGE IVP STA (13:08)
[2019-10-10] MEDS ORDERED: VANCOMYCIN IV PER PHARMACY 1 EACH MISC MISCELLANE PRN (13:18)
[2019-10-10] MEDS ORDERED: HYDROcodone/APAP 5-325MG 1 EACH TAB PO PRN (13:20)
[2019-10-10] MEDS ORDERED: ONDANSETRON 4 MG/2 ML VIAL IVP PRN (13:20)
[2019-10-10] MEDS ORDERED: NALOXONE 0.4 MG/ML 1 ML VIAL IV PRN (13:20)
[2019-10-10] MEDS ORDERED: VANCOMYCIN 1,250 MG in SODIUM CHLORIDE 0.9% 250 ML IVPB ONE (14:00)
[2019-10-10 14:14] LABS: Bacteria,Urine Rare /hpf; Granular Casts,Urine 4 /lpf (0); Hyaline Casts,Urine 10 /lpf (0-2); Mucus,Urine Rare /hpf; RBC,Urine 2 /hpf (0-5); Squamous Epithelial Cell,Urine <1 /hpf (0-4); WBC,Urine 8 /hpf (0-5)
[2019-10-10] MEDS ORDERED: MORPHINE SULFATE 4 MG/ML SYRINGE IVP STA (14:18)
[2019-10-10 14:19] LABS: Appearance,Urine Clear (Clear); Color,Urine Orange
[2019-10-10 14:20] LABS: Bilirubin,Urine 2+ (Negative); Blood,Urine Negative (Negative); Glucose,Urine (UA) Negative (Negative); Ketones,Urine Negative (Negative); Protein,Urine 1+ (Negative)
[2019-10-10 14:21] LABS: Leukocyte Esterase,Urine Negative (Negative); Nitrite,Urine Negative (Negative)
[2019-10-10] MEDS: SODIUM CHLORIDE 0.9% 1,000 ML IV SCH ×2 (19:32→20:44)
[2019-10-10] MEDS: PANTOPRAZOLE 40 MG/10 ML VIAL IVP SCH (20:43)
[2019-10-10] MEDS: MORPHINE SULFATE 4 MG/ML SYRINGE IVP PRN (21:30)
[2019-10-10] MEDS ORDERED: SODIUM CHLORIDE 0.9% 2,000 ML IV ONE (22:05)
[2019-10-10 23:20] LABS: Anisocytosis Slight; Basophils % (A) 0 %; Eosinophils % (A) 0 %; HGB 7.1 gm/dL (13.0-17.5); Hypochromasia Slight; Lymphocytes # (A) 0.1 k/uL (1.0-4.8); Lymphocytes % (A) 9 %; MCH 29.2 pg (25.0-35.0); MCHC 31.1 g/dL (31.0-37.0); MCV 93.8 fL (80.0-100.0); Mean Platelet Volume 13.3; Monocytes # (A) 0.1 k/uL (0-1.0); Monocytes % (A) 3 %; Neutrophils # (A) 1.4 k/uL (1.3-7.7); Neutrophils % (A) 86 %; RBC 2.45 m/uL (4.30-5.90); WBC 1.6 k/uL (3.8-10.6)
[2019-10-10 23:24] LABS: Platelet Count 23 k/uL (150-450)
[2019-10-11] MEDS: METOPROLOL TARTRATE 25 MG TAB PO SCH ×4 (02:10→21:30)
[2019-10-11] MEDS: SODIUM CHLORIDE 0.9% 1,000 ML IV SCH ×2 (05:21→09:18)
[2019-10-11] MEDS ORDERED: VANCOMYCIN 1,250 MG in SODIUM CHLORIDE 0.9% 250 ML IVPB SCH (06:00)
[2019-10-11] MEDS: PANTOPRAZOLE 40 MG/10 ML VIAL IVP SCH ×2 (07:58→21:30)
[2019-10-11 08:32] LABS: Albumin 1.9 g/dL (3.5-5.0); Magnesium 2.1 mg/dL (1.6-2.3); Potassium 4.6 mmol/L (3.5-5.1); Total Bilirubin 2.3 mg/dL (0.2-1.3); Total Protein 4.5 g/dL (6.3-8.2)
[2019-10-11 08:41] LABS: Basophils % (A) 0 %; Eosinophils % (A) 2 %; HCT 22.2 % (39.0-53.0); Hypochromasia Slight; Lymphocytes # (A) 0.2 k/uL (1.0-4.8); Lymphocytes % (A) 12 %; MCH 29.6 pg (25.0-35.0); MCHC 31.3 g/dL (31.0-37.0); MCV 94.4 fL (80.0-100.0); Mean Platelet Volume 9.6; Monocytes # (A) 0.1 k/uL (0-1.0); Monocytes % (A) 4 %; Neutrophils # (A) 1.1 k/uL (1.3-7.7); Neutrophils % (A) 79 %; RBC 2.36 m/uL (4.30-5.90); RDW 15.8 % (11.5-15.5)
[2019-10-11 08:42] LABS: WBC 1.4 k/uL (3.8-10.6)
[2019-10-11 08:51] LABS: Platelet Count 28 k/uL (150-450)
[2019-10-11 08:58] LABS: Calcium 6.3 mg/dL (8.4-10.2)
--- NOTE | 2019-10-11 09:43 | P.CRDCN ---
History of Present Illness Consult date: 10/11/19 Requesting physician: Ricardo Juarez Chief complaint: Swelling History of present illness: This is a 64-year-old gentleman with past medical history significant for hypertension, hyperlipidemia, esophageal cancer currently receiving chemotherapy, significant bilateral lower extremity ulcers on his legs. He had a port placed about 3 weeks ago and since then has noticed an increase in swelling of his legs and testicles. Patient had been admitted to the hospital with dehydration requiring of fluid, his oncologist also has been somewhat hesitant to diurese the patient because of the recent dehydration. Chest x-ray on admission did not reveal any acute process. His EKG showed atrial fibrillation with moderately rapid ventricular response for which cardiology consultation was requested. Blood pressure this morning 72/40, heart rate in the 80s, 95% on 2 L of oxygen. White blood cell count 1.4 this morning hemo globin 7, platelet count 28. Sodium 136, potassium 4.6, BUN 41, creatinine 1.1, plasma lactic acid 5.9 on admission. Magnesium 2.1. Total bilirubin 2.3 albumin 1.9. Past Medical History Past Medical History: Cancer, GERD/Reflux, Hyperlipidemia, Hypertension, Pneumonia, Prostate Disorder, Thyroid Disorder Additional Past Medical History / Comment(s): ANEMIA- hiatal hernia. had an episode of vertigo in May 2019. Esophageal cancer. Radiation therapy - Aug 2019. Pneumonia - 2019 History of Any Multi-Drug Resistant Organisms: None Reported Additional Past Surgical History / Comment(s): COLONOSCOPY. PROSTATE BX, right side port placement Past Anesthesia/Blood Transfusion Reactions: No Reported Reaction Past Psychological History: No Psychological Hx Reported Smoking Status: Current every day smoker Past Alcohol Use History: None Reported Additional Past Alcohol Use History / Comment(s): SMOKES 1/2 PPD SINCE AGE 18 Past Drug Use History: None Reported - Past Family History Mother Family Medical History: Liver Disease Medications and Allergies Home Medications Medication Instructions Recorded Confirmed Type Finasteride [Proscar] 5 mg PO HS 10/16/16 10/10/19 History Simvastatin [Zocor] 40 mg PO SUMOWEFR 10/16/16 10/10/19 History Levothyroxine Sodium [Synthroid] 75 mcg PO QAM 06/01/19 10/10/19 History Calcium Carbonate [Calcium] 600 mg PO DAILY 09/19/19 10/10/19 History Multivitamins, Thera [Multivitamin 1 tab PO DAILY 09/19/19 10/10/19 History (formulary)] HYDROcodone/APAP 5-325MG [[place] 1 tab PO Q6HR PRN 10/04/19 10/10/19 History 5-325] Allergies Allergy/AdvReac Type Severity Reaction Status Date / Time No Known Allergies Allergy Verified 10/10/19 14:06 Physical Exam Vitals: Vital Signs Temp Pulse Pulse Resp BP BP BP 10/11/19 07:37 97.5 F L 89 18 87/50 10/11/19 05:46 97.4 F L 78 18 96/54 10/11/19 02:12 117 H 16 95/63 10/11/19 01:52 150 H 10/11/19 01:40 98.1 F 138 H 18 88/59 10/10/19 22:04 69 16 117/68 10/10/19 20:46 97.7 F 71 16 102/72 10/10/19 14:29 116/80 10/10/19 13:11 97 F L 53 L 16 108/78 10/10/19 11:05 97.2 F L 61 18 99/67 Pulse Ox 10/11/19 07:37 95 10/11/19 05:46 96 10/11/19 02:12 100 10/11/19 01:52 10/11/19 01:40 95 10/10/19 22:04 93 L 10/10/19 20:46 97 10/10/19 14:29 10/10/19 13:11 96 10/10/19 11:05 94 L Intake and Output 10/10/19 10/11/19 10/11/19 22:59 06:59 14:59 Intake Total 1270 1250 Output Total 375 200 Balance 895 1050 Intake: Intake, IV Titration 680 1250 Amount Sodium Chloride 0.9% 1, 680 000 ml @ 170 mls/hr IV . Q5H53M [facility] Rx#:[id number] Sodium Chloride 0.9% 2, 1250 000 ml @ 250 mls/hr IV . Q8H ONE Rx#:[id number] Oral 590 Output: Urine 375 200 Other: Voiding Method Urinal # Voids 1 Weight 68.039 kg PHYSICAL EXAMINATION: GENERAL: Frail 64-year-old gentleman in no acute distress at the time of my examination HEENT: Head is atraumatic, normocephalic. Pupils equal, round. Sclera anicteric. Conjunctiva are clear. Mucous membranes of the mouth are moist. Neck is supple. There is no elevated jugular venous pressure. No carotid bruit is heard. HEART EXAMINATION: S1 and S2 irregularly irregular a systolic murmur is heard CHEST EXAMINATION: Lungs are clear to auscultation and precussion. No chest wall tenderness is noted on palpation or with deep breathing. ABDOMEN: Soft, nontender. Bowel sounds are heard. No organomegaly noted. EXTREMITIES:[ 2+ peripheral pulses with evidence of peripheral edema , significant open ulcerated areas on his bilateral lower extremities NEUROLOGIC patient is awake, alert and oriented 2 . . Results 10/11/19 07:58 10/11/19 07:58 Cardiac Enzymes 10/10/19 10/11/19 Range/Units 12:04 07:58 AST 29 24 (17-59) U/L Coagulation 10/10/19 Range/Units 12:04 PT 14.0 H (9.0-12.0) sec APTT 25.6 (22.0-30.0) sec CBC 10/10/19 10/10/19 10/11/19 Range/Units 12:04 23:06 07:58 WBC 4.3 1.6 L 1.4 L* (3.8-10.6) k/uL RBC 2.75 L 2.45 L 2.36 L (4.30-5.90) m/uL Hgb 8.1 L D 7.1 L 7.0 L (13.0-17.5) gm/dL Hct 25.8 L 23.0 L 22.2 L (39.0-53.0) % Plt Count 36 L D 23 L 28 L (150-450) k/uL Comprehensive Metabolic Panel 10/10/19 10/11/19 Range/Units 12:04 07:58 Sodium 133 L 136 L (137-145) mmol/L Potassium 5.1 4.6 (3.5-5.1) mmol/L Chloride 102 114 H (98-107) mmol/L Carbon Dioxide 16 L 14 L (22-30) mmol/L BUN 63 H 41 H (9-20) mg/dL Creatinine 1.52 H 1.12 (0.66-1.25) mg/dL Glucose 94 59 L (74-99) mg/dL Calcium 7.4 L 6.3 L* (8.4-10.2) mg/dL AST 29 24 (17-59) U/L ALT 24 17 (4-49) U/L Alkaline Phosphatase 231 H 159 H (38-126) U/L Total Protein 5.8 L 4.5 L (6.3-8.2) g/dL Albumin 2.5 L 1.9 L (3.5-5.0) g/dL Current Medications Generic Name Dose Route Start Last Admin Trade Name Freq PRN Reason Stop Dose Admin Sodium Chloride 1,000 mls @ 120 mls/hr 10/10/19 13:30 10/11/19 05:21 Saline 0.9% IV 170 mls/hr .Q8H20M [facility] Administration Vancomycin HCl 1,250 mg/ 250 mls @ 125 mls/hr 10/11/19 06:00 10/11/19 05:22 Sodium Chloride IVPB 125 mls/hr Q16H [facility]ANK Administration Metoprolol Tartrate 25 mg 10/11/19 02:00 10/11/19 02:10 Lopressor PO 25 mg BID HANK Administration Morphine Sulfate 4 mg 10/10/19 18:18 10/10/19 21:30 Morphine Sulfate (Inj) IVP 4 mg Q4HR PRN Administration Pain Naloxone HCl 0.2 mg 10/10/19 13:20 Narcan IV Q2M PRN Opioid Reversal Ondansetron HCl 4 mg 10/10/19 13:20 Zofran IVP Q8HR PRN Nausea And Vomiting Pantoprazole Sodium 40 mg 10/10/19 21:00 10/11/19 07:58 Protonix IVP 40 mg BID HANK Administration Intake and Output 10/10/19 10/11/19 10/11/19 22:59 06:59 14:59 Intake Total 1270 1250 Output Total 375 200 Balance 895 1050 Intake: Intake, IV Titration 680 1250 Amount Sodium Chloride 0.9% 1, 680 000 ml @ 170 mls/hr IV . Q5H53M [facility] Rx#:[id number] Sodium Chloride 0.9% 2, 1250 000 ml @ 250 mls/hr IV . Q8H ONE Rx#:[id number] Oral 590 Output: Urine 375 200 Other: Voiding Method Urinal # Voids 1 Weight 68.039 kg 10/11/19 07:58 10/11/19 07:58 EKG Interpretations (text) EKG shows atrial fibrillation with moderately rapid ventricular response Assessment and Plan Plan: Assessment and plan #1 bilateral lower extremity edema #2 esophageal cancer stage IV #3 atrial fibrillation with moderately rapid ventricular response, appears to be of new onset, persistent #4 hypotension #5 chronic anemia, likely secondary to cancer Plan We will obtain an echocardiogram with Doppler study as well as a TSH level. Patient is currently on beta aide but because of the hypotension that was held this morning. I also had a discussion with Dr. Weeks this morning regarding anticoagulation, he will review the patient's records in the office and get back with us regarding initiating anticoagulation for stroke prevention. DNP note has been reviewed, I agree with a documented findings and plan of care. Patient was seen and examined.
--- NOTE | 2019-10-11 10:55 | P.CONS ---
History of Present Illness - Reason for Consult Consult date: 10/11/19 Esophageal cancer Requesting physician: Paulino Tillman - Chief Complaint Lower extremity ulcerations and swelling - History of Present Illness Mr. Cuevas is a very pleasant 64-year-old male patient of Dr. Jay with metastatic esophageal adenocarcinoma. Patient is status post XRT and his first cycle of FOLFOX with Herceptin. Patient states he tolerated the treatment overall well. Unfortunately, pt is intravascularly dehydrated with severe peripheral edema. Tried to be treated conservatively with compression stockings and elevation instead of using diuretics but, unfortunately patient has been unable to manage. Patient now has bilateral lower extremity blistering and ulcerations. Thankfully, patient is denying any pain. He denies fevers, oral irritation, he feels he is swallowing pretty well overall, no nausea, vomiting, chest pain, palpitations, difficulty breathing, abdominal pain, cramping, acute changes in bowel or bladder habits. Presented 06/10 with a syncopal episode, part of his workup included CT chest done to rule out pulmonary embolus. It was negative for the same, but did show some irregular thickening of the mid to distal thoracic esophagus. CT of the brain was negative. The patient was therefore referred to Dr Back for further workup. EGD on 08/11/19, revealed an obstructing mass starting at around 30 cm beyond which the endoscope could not be passed. There was liquid retained in the esophagus proximal to the mass, biopsy positive for moderately differentiated adenocarcinoma with some fungal colonization. Referred to Medical Onc and Rad Onc. Staging PET 08/26/19, showed uptake in the primary site, precarinal lymph node measuring 1.8 x 1 cm, multiple hepatic metastatic lesions, and at least right iliac bone metastasis confirming stage IV disease. Sarted on palliative radiation to the distal esophagus, and the right hip, completed 09/15/19. Tumor was HER-2 equivocal, and positive for PD-1. He was supposed to start chemo on 09/25/19 with FOLFOX - Herceptin, and was admitted for port placement. However, labs showed hypercalcemia in the 13-14 range. The pt was hypoxic with low BP. He was treated and given Xgeva on 09/19/19. He had his 1st chemo last week. Review of Systems 14 point review of systems is negative except as stated in HPI Past Medical History Past Medical History: Cancer, GERD/Reflux, Hyperlipidemia, Hypertension, Pneumonia, Prostate Disorder, Thyroid Disorder Additional Past Medical History / Comment(s): ANEMIA- hiatal hernia. had an episode of vertigo in May 2019. Esophageal cancer. Radiation therapy - Aug 2019. Pneumonia - 2019 History of Any Multi-Drug Resistant Organisms: None Reported Additional Past Surgical History / Comment(s): COLONOSCOPY. PROSTATE BX, right side port placement Past Anesthesia/Blood Transfusion Reactions: No Reported Reaction Past Psychological History: No Psychological Hx Reported Smoking Status: Current every day smoker Past Alcohol Use History: None Reported Additional Past Alcohol Use History / Comment(s): SMOKES 1/2 PPD SINCE AGE 18 Past Drug Use History: None Reported - Past Family History Mother Family Medical History: Liver Disease Medications and Allergies Home Medications Medication Instructions Recorded Confirmed Type Finasteride [Proscar] 5 mg PO HS 10/16/16 10/10/19 History Simvastatin [Zocor] 40 mg PO SUMOWEFR 10/16/16 10/10/19 History Levothyroxine Sodium [Synthroid] 75 mcg PO QAM 06/01/19 10/10/19 History Calcium Carbonate [Calcium] 600 mg PO DAILY 09/19/19 10/10/19 History Multivitamins, Thera [Multivitamin 1 tab PO DAILY 09/19/19 10/10/19 History (formulary)] HYDROcodone/APAP 5-325MG [[place] 1 tab PO Q6HR PRN 10/04/19 10/10/19 History 5-325] Allergies Allergy/AdvReac Type Severity Reaction Status Date / Time No Known Allergies Allergy Verified 10/10/19 14:06 Physical Exam Vitals: Vital Signs Temp Pulse Pulse Resp BP BP BP 10/11/19 09:29 72/42 73/45 10/11/19 07:37 97.5 F L 89 18 87/50 10/11/19 05:46 97.4 F L 78 18 96/54 10/11/19 02:12 117 H 16 95/63 10/11/19 01:52 150 H 10/11/19 01:40 98.1 F 138 H 18 88/59 10/10/19 22:04 69 16 117/68 10/10/19 20:46 97.7 F 71 16 102/72 10/10/19 14:29 116/80 10/10/19 13:11 97 F L 53 L 16 108/78 10/10/19 11:05 97.2 F L 61 18 99/67 Pulse Ox 10/11/19 09:29 10/11/19 07:37 95 10/11/19 05:46 96 10/11/19 02:12 100 10/11/19 01:52 10/11/19 01:40 95 10/10/19 22:04 93 L 10/10/19 20:46 97 10/10/19 14:29 10/10/19 13:11 96 10/10/19 11:05 94 L Intake and Output 10/10/19 10/11/19 10/11/19 22:59 06:59 14:59 Intake Total 1270 1250 Output Total 375 200 Balance 895 1050 Intake: Intake, IV Titration 680 1250 Amount Sodium Chloride 0.9% 1, 680 000 ml @ 170 mls/hr IV . Q5H53M [facility] Rx#:[id number] Sodium Chloride 0.9% 2, 1250 000 ml @ 250 mls/hr IV . Q8H ONE Rx#:[id number] Oral 590 Output: Urine 375 200 Other: Voiding Method Urinal # Voids 1 Weight 68.039 kg - Constitutional General appearance: cooperative, no acute distress, thin - EENT Eyes: anicteric sclerae, EOMI, poor dentition ENT: hearing grossly normal, normal oropharynx - Neck Neck: no lymphadenopathy - Respiratory Respiratory: bilateral: CTA, diminished - Cardiovascular Heart sounds: normal: S1, S2 Abnormal Heart Sounds: no systolic murmur, no diastolic murmur, no rub, no S3 Gallop, no S4 Gallop, no click, no other leg Peripheral Edema: bilateral: 3+, Pitting - Gastrointestinal General gastrointestinal: no absent bowel sounds, no decreased bowel sounds, no distended, no hepatomegaly, no hyperactive bowel sounds, normal bowel sounds, no organomegaly, no rigid, scaphoid, soft, no splenomegaly, no tenderness, no umbilical hernia, no ventral hernia - Integumentary Bilateral lower extremities have multiple blisters and scabbed over ulcerations. It is apparent the patient has been scratching his legs - Neurologic Neurologic: CNII-XII intact, focal deficits - Musculoskeletal Musculoskeletal: generalized weakness, strength equal bilaterally - Psychiatric Psychiatric: A&O x's 3, appropriate affect, intact judgment & insight Results CBC & Chem 7: 10/11/19 07:58 10/11/19 07:58 Labs: Abnormal Lab Results - Last 24 Hours (Table) 10/10/19 10/10/19 10/10/19 Range/Units 12:04 12:04 12:04 WBC (3.8-10.6) k/uL RBC 2.75 L (4.30-5.90) m/uL Hgb 8.1 L D (13.0-17.5) gm/dL Hct 25.8 L (39.0-53.0) % RDW 15.9 H (11.5-15.5) % Plt Count 36 L D (150-450) k/uL Neutrophils # (1.3-7.7) k/uL Lymphocytes # 0.5 L (1.0-4.8) k/uL PT (9.0-12.0) sec INR (<1.2) Sodium 133 L (137-145) mmol/L Chloride (98-107) mmol/L Carbon Dioxide 16 L (22-30) mmol/L BUN 63 H (9-20) mg/dL Creatinine 1.52 H (0.66-1.25) mg/dL Glucose (74-99) mg/dL Plasma Lactic Acid Mohinder 5.7 H* (0.7-2.0) mmol/L Calcium 7.4 L (8.4-10.2) mg/dL Total Bilirubin 2.5 H (0.2-1.3) mg/dL Alkaline Phosphatase 231 H (38-126) U/L Total Protein 5.8 L (6.3-8.2) g/dL Albumin 2.5 L (3.5-5.0) g/dL Procalcitonin (0.02-0.09) ng/mL Urine Bilirubin (Negative) Urine WBC (0-5) /hpf Urine Bacteria (None) /hpf Hyaline Casts (0-2) /lpf Urine Mucus (None) /hpf 10/10/19 10/10/19 10/10/19 Range/Units 12:04 12:04 13:55 WBC (3.8-10.6) k/uL RBC (4.30-5.90) m/uL Hgb (13.0-17.5) gm/dL Hct (39.0-53.0) % RDW (11.5-15.5) % Plt Count (150-450) k/uL Neutrophils # (1.3-7.7) k/uL Lymphocytes # (1.0-4.8) k/uL PT 14.0 H (9.0-12.0) sec INR 1.4 H (<1.2) Sodium (137-145) mmol/L Chloride (98-107) mmol/L Carbon Dioxide (22-30) mmol/L BUN (9-20) mg/dL Creatinine (0.66-1.25) mg/dL Glucose (74-99) mg/dL Plasma Lactic Acid Mohinder (0.7-2.0) mmol/L Calcium (8.4-10.2) mg/dL Total Bilirubin (0.2-1.3) mg/dL Alkaline Phosphatase (38-126) U/L Total Protein (6.3-8.2) g/dL Albumin (3.5-5.0) g/dL Procalcitonin 1.89 H (0.02-0.09) ng/mL Urine Bilirubin 2+ H (Negative) Urine WBC 8 H (0-5) /hpf Urine Bacteria Rare H (None) /hpf Hyaline Casts 10 H (0-2) /lpf Urine Mucus Rare H (None) /hpf 10/10/19 10/10/19 10/10/19 Range/Units 16:15 20:11 23:06 WBC 1.6 L (3.8-10.6) k/uL RBC 2.45 L (4.30-5.90) m/uL Hgb 7.1 L (13.0-17.5) gm/dL Hct 23.0 L (39.0-53.0) % RDW 16.0 H (11.5-15.5) % Plt Count 23 L (150-450) k/uL Neutrophils # (1.3-7.7) k/uL Lymphocytes # 0.1 L (1.0-4.8) k/uL PT (9.0-12.0) sec INR (<1.2) Sodium (137-145) mmol/L Chloride (98-107) mmol/L Carbon Dioxide (22-30) mmol/L BUN (9-20) mg/dL Creatinine (0.66-1.25) mg/dL Glucose (74-99) mg/dL Plasma Lactic Acid Mohinder 5.5 H* 5.9 H* (0.7-2.0) mmol/L Calcium (8.4-10.2) mg/dL Total Bilirubin (0.2-1.3) mg/dL Alkaline Phosphatase (38-126) U/L Total Protein (6.3-8.2) g/dL Albumin (3.5-5.0) g/dL Procalcitonin (0.02-0.09) ng/mL Urine Bilirubin (Negative) Urine WBC (0-5) /hpf Urine Bacteria (None) /hpf Hyaline Casts (0-2) /lpf Urine Mucus (None) /hpf 10/11/19 10/11/19 Range/Units 07:58 07:58 WBC 1.4 L* (3.8-10.6) k/uL RBC 2.36 L (4.30-5.90) m/uL Hgb 7.0 L (13.0-17.5) gm/dL Hct 22.2 L (39.0-53.0) % RDW 15.8 H (11.5-15.5) % Plt Count 28 L (150-450) k/uL Neutrophils # 1.1 L (1.3-7.7) k/uL Lymphocytes # 0.2 L (1.0-4.8) k/uL PT (9.0-12.0) sec INR (<1.2) Sodium 136 L (137-145) mmol/L Chloride 114 H (98-107) mmol/L Carbon Dioxide 14 L (22-30) mmol/L BUN 41 H (9-20) mg/dL Creatinine (0.66-1.25) mg/dL Glucose 59 L (74-99) mg/dL Plasma Lactic Acid Mohinder (0.7-2.0) mmol/L Calcium 6.3 L* (8.4-10.2) mg/dL Total Bilirubin 2.3 H (0.2-1.3) mg/dL Alkaline Phosphatase 159 H (38-126) U/L Total Protein 4.5 L (6.3-8.2) g/dL Albumin 1.9 L (3.5-5.0) g/dL Procalcitonin (0.02-0.09) ng/mL Urine Bilirubin (Negative) Urine WBC (0-5) /hpf Urine Bacteria (None) /hpf Hyaline Casts (0-2) /lpf Urine Mucus (None) /hpf Chest x-ray: report reviewed Assessment and Plan (1) A-fib Narrative/Plan: New onset, no cardiac history. Cardiology consulted. Case was discussed with cardiology DNP. Recommendations are for anticoagulation, hold at this time for grade 3 thrombocytopenia Herceptin can be cardiotoxic related to LVEF. CT of the chest to rule out pulmonary embolism in patient with metastatic malignancy. Requested an attempt for BLE Doppler to rule out any DVT. Current Visit: Yes Status: Acute Priority: High Code(s): I48.91 - UN SPECIFIED ATRIAL FIBRILLATION SNOMED Code(s): 73221146 (2) Cellulitis Narrative/Plan: Result of persistent edema, intravascular dehydration, malignancy and poor nutrition. Case was discussed with Attending. Infectious disease consult it. Dietitian consult. Wound Care consulted. Current Visit: Yes Status: Acute Priority: High Code(s): L03.90 - CELLULITIS, UNSPECIFIED SNOMED Code(s): 301312122 (3) Lower extremity edema Narrative/Plan: With resulting severe wounds and ulcerations. Wound care has been consulted. Dietitian has been consulted. Nephrology has been consulted for recommendations regarding diuresis with intravascular dehydration Current Visit: Yes Status: Acute Priority: High Code(s): R60.0 - LOCALIZED EDEMA SNOMED Code(s): 177523703 (4) Esophageal cancer, stage IV Narrative/Plan: Patient is status post palliative radiation, with patient denying any dysphagia or odynophagia. He is status post first cycle of chemotherapy. He feels he tolerated it well. Hope is that with Coumadin of his underlying malignancy patient metabolism physician will be able to balance out and an outpatient to heal from his current issues. Multidisciplinary approach for treatment. Current Visit: No Status: Acute Priority: High Code(s): C15.9 - MALIGNANT NEOPLASM OF ESOPHAGUS, UNSPECIFIED SNOMED Code(s): 795188311 (5) Antineoplastic chemotherapy induced pancytopenia Narrative/Plan: Transfused to keep hemoglobin 7 or higher. Transfuse to keep platelets greater than 10,000 unless patient is symptomatic. No aspirin, NSAIDs, anticoagulation GCSF has been initiated for low WBC/ANC. Current Visit: Yes Status: Acute Priority: High Code(s): D61.810 - ANTINEOPLASTIC CHEMOTHERAPY INDUCED PANCYTOPENIA; T45.1X5A - ADVERSE EFFECT OF ANTINEOPLASTIC AND IMMUNOSUP DRUGS, INIT SNOMED Code(s): 934342765650844 Plan: Doctor attests: I performed a history and physical examination of this patient, developed impression and plan of care. Discussed with dictator. I agree with dictators note, documented as a scribe.
--- NOTE | 2019-10-11 11:43 | P.CONS ---
History of Present Illness - Reason for Consult Consult date: 10/11/19 Wound care - History of Present Illness This is a 64-year-old patient being seen by the wound care center on for nonhealing ulcerations to bilateral lower extremities. Patient has past medical history significant for hypertension, hyperlipidemia, esophageal cancer currently receiving chemotherapy, bilateral lower extremity ulcer with edema and inflammation. Patient had a port placed about 3 weeks ago since that time he is noticed increased swelling to his bilateral legs and testicles. Patient was admitted to the hospital with dehydration requiring of fluid. His oncologist was hesitant for diuresis because of the recent dehydration. Patient states that the ulceration started about last week. His significant discomfort to bilateral lower extremities. Review of Systems Review Of Systems: Constitutional: Reports pain No fever, no chills, no night sweats. No weight ch meh[place]. No weakness, fatigue or lethargy. No daytime sleepiness. Integumentary:reports wounds, no lesions. Report rash no pruritus. No unusual bruising. No change in hair or nails. Reports edema Past Medical History Past Medical History: Cancer, GERD/Reflux, Hyperlipidemia, Hypertension, Pneumonia, Prostate Disorder, Thyroid Disorder Additional Past Medical History / Comment(s): ANEMIA- hiatal hernia. had an episode of vertigo in May 2019. Esophageal cancer. Radiation therapy - Aug 2019. Pneumonia - 2019 History of Any Multi-Drug Resistant Organisms: None Reported Additional Past Surgical History / Comment(s): COLONOSCOPY. PROSTATE BX, right side port placement Past Anesthesia/Blood Transfusion Reactions: No Reported Reaction Past Psychological History: No Psychological Hx Reported Smoking Status: Current every day smoker Past Alcohol Use History: None Reported Additional Past Alcohol Use History / Comment(s): SMOKES 1/2 PPD SINCE AGE 18 Past Drug Use History: None Reported - Past Family History Mother Family Medical History: Liver Disease Medications and Allergies Home Medications Medication Instructions Recorded Confirmed Type Finasteride [Proscar] 5 mg PO HS 10/16/16 10/10/19 History Simvastatin [Zocor] 40 mg PO SUMOWEFR 10/16/16 10/10/19 History Levothyroxine Sodium [Synthroid] 75 mcg PO QAM 06/01/19 10/10/19 History Calcium Carbonate [Calcium] 600 mg PO DAILY 09/19/19 10/10/19 History Multivitamins, Thera [Multivitamin 1 tab PO DAILY 09/19/19 10/10/19 History (formulary)] HYDROcodone/APAP 5-325MG [[place] 1 tab PO Q6HR PRN 10/04/19 10/10/19 History 5-325] Allergies Allergy/AdvReac Type Severity Reaction Status Date / Time No Known Allergies Allergy Verified 10/10/19 14:06 Physical Exam Vitals: Vital Signs Temp Pulse Pulse Resp BP BP BP 10/11/19 09:29 72/42 73/45 10/11/19 07:37 97.5 F L 89 18 87/50 10/11/19 05:46 97.4 F L 78 18 96/54 10/11/19 02:12 117 H 16 95/63 10/11/19 01:52 150 H 10/11/19 01:40 98.1 F 138 H 18 88/59 10/10/19 22:04 69 16 117/68 10/10/19 20:46 97.7 F 71 16 102/72 10/10/19 14:29 116/80 10/10/19 13:11 97 F L 53 L 16 108/78 Pulse Ox 10/11/19 09:29 10/11/19 07:37 95 10/11/19 05:46 96 10/11/19 02:12 100 10/11/19 01:52 10/11/19 01:40 95 10/10/19 22:04 93 L 10/10/19 20:46 97 10/10/19 14:29 10/10/19 13:11 96 Intake and Output 10/10/19 10/11/19 10/11/19 22:59 06:59 14:59 Intake Total 1270 1250 200 Output Total 375 200 Balance 895 1050 200 Intake: Intake, IV Titration 680 1250 Amount Sodium Chloride 0.9% 1, 680 000 ml @ 170 mls/hr IV . Q5H53M [facility] Rx#:[id number] Sodium Chloride 0.9% 2, 1250 000 ml @ 250 mls/hr IV . Q8H ONE Rx#:[id number] Oral 590 200 Output: Urine 375 200 Other: Voiding Method Urinal # Voids 1 Weight 68.039 kg Physical exam: General Appearance: Alert, cooperative, no distress, appears stated age. Skin: Multiple ulcerations to bilateral legs. Right lower extremity has multiple ulcerations in various stages minimal granulation seen throughout wound beds. Ulcerations to medial anterior and lateral aspect of left lower extremity and dorsal foot. Slough and exudate noted to the site. Petechiae rash circumfe rential noted. Left lower extremity large ulceration to the lateral aspect multiple ulcerations to medial anterior and dorsal foot, no granulation noted in wound bed, significant Slough and exudate noted. Petechiae rash circumferential. Tenderness to palpation 2+ edema. all other Skin color, jacinto ture, tugor normal, no rashes or lesions. Neurologic: Alert oriented x3 Results CBC & Chem 7: 10/11/19 07:58 10/11/19 07:58 Labs: Abnormal Lab Results - Last 24 Hours (Table) 10/10/19 10/10/19 10/10/19 Range/Units 12:04 12:04 12:04 WBC (3.8-10.6) k/uL RBC 2.75 L (4.30-5.90) m/uL Hgb 8.1 L D (13.0-17.5) gm/dL Hct 25.8 L (39.0-53.0) % RDW 15.9 H (11.5-15.5) % Plt Count 36 L D (150-450) k/uL Neutrophils # (1.3-7.7) k/uL Lymphocytes # 0.5 L (1.0-4.8) k/uL PT (9.0-12.0) sec INR (<1.2) Sodium 133 L (137-145) mmol/L Chloride (98-107) mmol/L Carbon Dioxide 16 L (22-30) mmol/L BUN 63 H (9-20) mg/dL Creatinine 1.52 H (0.66-1.25) mg/dL Glucose (74-99) mg/dL Plasma Lactic Acid Mohinder 5.7 H* (0.7-2.0) mmol/L Calcium 7.4 L (8.4-10.2) mg/dL Total Bilirubin 2.5 H (0.2-1.3) mg/dL Alkaline Phosphatase 231 H (38-126) U/L Total Protein 5.8 L (6.3-8.2) g/dL Albumin 2.5 L (3.5-5.0) g/dL Procalcitonin (0.02-0.09) ng/mL Urine Bilirubin (Negative) Urine WBC (0-5) /hpf Urine Bacteria (None) /hpf Hyaline Casts (0-2) /lpf Urine Mucus (None) /hpf 10/10/19 10/10/19 10/10/19 Range/Units 12:04 12:04 13:55 WBC (3.8-10.6) k/uL RBC (4.30-5.90) m/uL Hgb (13.0-17.5) gm/dL Hct (39.0-53.0) % RDW (11.5-15.5) % Plt Count (150-450) k/uL Neutrophils # (1.3-7.7) k/uL Lymphocytes # (1.0-4.8) k/uL PT 14.0 H (9.0-12.0) sec INR 1.4 H (<1.2) Sodium (137-145) mmol/L Chloride (98-107) mmol/L Carbon Dioxide (22-30) mmol/L BUN (9-20) mg/dL Creatinine (0.66-1.25) mg/dL Glucose (74-99) mg/dL Plasma Lactic Acid Mohinder (0.7-2.0) mmol/L Calcium (8.4-10.2) mg/dL Total Bilirubin (0.2-1.3) mg/dL Alkaline Phosphatase (38-126) U/L Total Protein (6.3-8.2) g/dL Albumin (3.5-5.0) g/dL Procalcitonin 1.89 H (0.02-0.09) ng/mL Urine Bilirubin 2+ H (Negative) Urine WBC 8 H (0-5) /hpf Urine Bacteria Rare H (None) /hpf Hyaline Casts 10 H (0-2) /lpf Urine Mucus Rare H (None) /hpf 10/10/19 10/10/19 10/10/19 Range/Units 16:15 20:11 23:06 WBC 1.6 L (3.8-10.6) k/uL RBC 2.45 L (4.30-5.90) m/uL Hgb 7.1 L (13.0-17.5) gm/dL Hct 23.0 L (39.0-53.0) % RDW 16.0 H (11.5-15.5) % Plt Count 23 L (150-450) k/uL Neutrophils # (1.3-7.7) k/uL Lymphocytes # 0.1 L (1.0-4.8) k/uL PT (9.0-12.0) sec INR (<1.2) Sodium (137-145) mmol/L Chloride (98-107) mmol/L Carbon Dioxide (22-30) mmol/L BUN (9-20) mg/dL Creatinine (0.66-1.25) mg/dL Glucose (74-99) mg/dL Plasma Lactic Acid Mohinder 5.5 H* 5.9 H* (0.7-2.0) mmol/L Calcium (8.4-10.2) mg/dL Total Bilirubin (0.2-1.3) mg/dL Alkaline Phosphatase (38-126) U/L Total Protein (6.3-8.2) g/dL Albumin (3.5-5.0) g/dL Procalcitonin (0.02-0.09) ng/mL Urine Bilirubin (Negative) Urine WBC (0-5) /hpf Urine Bacteria (None) /hpf Hyaline Casts (0-2) /lpf Urine Mucus (None) /hpf 10/11/19 10/11/19 Range/Units 07:58 07:58 WBC 1.4 L* (3.8-10.6) k/uL RBC 2.36 L (4.30-5.90) m/uL Hgb 7.0 L (13.0-17.5) gm/dL Hct 22.2 L (39.0-53.0) % RDW 15.8 H (11.5-15.5) % Plt Count 28 L (150-450) k/uL Neutrophils # 1.1 L (1.3-7.7) k/uL Lymphocytes # 0.2 L (1.0-4.8) k/uL PT (9.0-12.0) sec INR (<1.2) Sodium 136 L (137-145) mmol/L Chloride 114 H (98-107) mmol/L Carbon Dioxide 14 L (22-30) mmol/L BUN 41 H (9-20) mg/dL Creatinine (0.66-1.25) mg/dL Glucose 59 L (74-99) mg/dL Plasma Lactic Acid Mohinder (0.7-2.0) mmol/L Calcium 6.3 L* (8.4-10.2) mg/dL Total Bilirubin 2.3 H (0.2-1.3) mg/dL Alkaline Phosphatase 159 H (38-126) U/L Total Protein 4.5 L (6.3-8.2) g/dL Albumin 1.9 L (3.5-5.0) g/dL Procalcitonin (0.02-0.09) ng/mL Urine Bilirubin (Negative) Urine WBC (0-5) /hpf Urine Bacteria (None) /hpf Hyaline Casts (0-2) /lpf Urine Mucus (None) /hpf Assessment and Plan (1) Nonhealing ulcer of left lower extremity with fat layer exposed Current Visit: Yes Status: Acute Code(s): L97.922 - NON-PRS CHR ULC UNSP PRT OF L LOW LEG W FAT LAYER EXPOSED SNOMED Code(s): 20075856 (2) Nonhealing ulcer of right lower extremity with fat layer exposed Current Visit: Yes Status: Acute Code(s): L97.912 - NON-PRS CHR ULC UNSP PRT OF R LOW LEG W FAT LAYER EXPOSED SNOMED Code(s): 46576252 (3) Chronic venous hypertension w/ulcer and inflammation involv both sides Current Visit: Yes Status: Acute Code(s): I87.333 - CHRONIC VENOUS HTN W ULCER AND INFLAM OF BILATERAL LOW EXTRM; L97.919 - NON-PRS CHRONIC ULC UNSP PRT OF R LOW LEG W UNSP SEVERITY; L97.929 - NON-PRS CHRONIC ULC UNSP PRT OF L LOW LEG W UNSP SEVERITY SNOMED Code(s): 928094149 (4) Esophageal cancer Current Visit: No Status: Acute Code(s): C15.9 - MALIGNANT NEOPLASM OF ESOPHAGUS, UNSPECIFIED SNOMED Code(s): 577618869 Plan: Discussed with patient in length the need for continued wound care posthospitalization. Patient verbalized understanding. Patient was agreeable to continue treatment in the wound care center. At this time we will utilize honey alginate, saline moistened gauze, dry gauze, rolled gauze and utilize the last 6 wrap i.e. Ricky wrap for compression. Change Wednesday. Discussed with patient to keep legs elevated at least 3 times a day for 30 minutes above heart. Discussed with patient the importance of nutrition and increasing protein. Discussed with patient a slower healing process due to chemotherapy patient verbalized understanding. Patient would benefit from debridement. Thank you kindly for the consultation. Any questions please contact the wound care center. DNP note has been reviewed and discussed with Dr. Ceja and the impression and plan of care has been directed as dictated.
--- NOTE | 2019-10-11 12:41 | US ---
EXAMINATION TYPE: US venous doppler duplex LE BI DATE OF EXAM: 10/11/2019 12:14 PM COMPARISON: NONE CLINICAL HISTORY: 64-year-old male lower extremity swelling, cancer; Lower extremity ulcerations and blisters post chemotherapy. SIDE PERFORMED: Bilateral TECHNIQUE: The lower extremity deep venous system is examined utilizing real time linear array sonog rigoberto with graded compression, doppler sonography and color-flow sonography. FINDINGS: VESSELS IMAGED: Common Femoral Vein Deep Femoral Vein Greater Saphenous Vein * Femoral Vein Popliteal Vein: limited to left only Right Leg: Negative for DVT as was able to assess due to patient's intolerance of probe pressure at ulceration sites. Right Popliteal Vein and upper calf. Unable to assess due to to ulcers. Right groi n lymph node seen = 2.4 x 2.1 x 0.5cm. Left Leg: Negative for DVT as was able to assess. Left groin lymph node seen = 2.5 x 2.2 x 0.8cm IMPRESSION: 1. Limited assessment of the right lower extremity. Unable to adequately assess the popliteal vein or upper calf vein. No DVT within the groin or thigh. An enlarged 2.1 cm right inguinal lymph node prob ably reactive. 2. No evidence for DVT within the left lower extremity imaged from the groin to the upper calf. React mariia 2.2 cm left inguinal lymph node.
--- NOTE | 2019-10-11 13:43 | CT ---
EXAMINATION TYPE: CT angio chest DATE OF EXAM: 10/11/2019 COMPARISON: 09/22/2019 HISTORY: 64-year-old male new onset a-fib, cancer, suspect PE TECHNIQUE: Contiguous axial scanning of the chest performed with IV Contrast, patient injected with 1 00 mL of Isovue 370. Coronal/sagittal MIP reconstructions performed. CT DLP: 251.5 mGycm Automated exposure control for dose reduction was used. FINDINGS: Heart remains borderline enlarged. No flattening of the interventricular septum or reflux of contrast into the hepatic veins. 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 Right anterior chest wall injection port with catheter tip obscured by dense contrast bolus. Large caliber to the main right and left pulmonary arteries measuring up to 3.0 cm. There are a coupl e segmental branch emboli in the basilar right lower lobe. No additional pulmonary emboli are identif ied. Redemonstrated moderate circumferential wall thickening involving nearly the distal half of the thora cic esophagus. Generalized anasarca change with trace effusions and mild dependent atelectasis. Mild diffuse bronchial wall thickening. Stable nonspecific 3 mm peripheral right upper lobe pulmonary nodule, axial image 44 back to 06/01/20 19. Suspicious 2.5 cm left adrenal mass and a 1.5 cm left hepatic lobe lesion not well seen previously. Bones: Moderate to advanced degenerative disc disease and endplate spondylosis mid to lower thoracic spine with accentuated midthoracic kyphosis. IMPRESSION: 1. Exam positive for a couple segmental branch pulmonary emboli to the basilar right lower lobe. No e vidence for right heart strain. 2. Borderline heart size and pulmonary arterial hypertension. Clinically correlate. 3. Known distal esophageal carcinoma with redemonstrated moderate wall thickening of nearly the dista l half of the thoracic esophagus. 4. Trace effusions and generalized anasarca. Correlate for fluid overload state. 5. Suspicious 2.5 cm left adrenal mass suspicious for metastatic disease. A 1.5 cm left hepatic lobe lesion was not well seen on 09/22/2019 and is also suspicious for metastasis as well. Critical finding #1 called to nurse Castro on [facility]SCARD at 1:40 PM.
[2019-10-11] MEDS: FILGRASTIM-SNDZ 300 MCG/0.5 ML SYRINGE SQ SCH (14:10)
[2019-10-11] MEDS: DEXTROSE 5% IN WATER 1,000 ML with SODIUM BICARB (1 MEQ/ML) 150 ML IV SCH (16:30)
--- NOTE | 2019-10-11 17:47 | P.CONS ---
History of Present Illness - Reason for Consult Consult date: 10/10/19 Bilateral lower extremity wound and cellulitis Requesting physician: Ricardo Juarez - Chief Complaint Lower extremity swelling and blisters times few days - History of Present Illness Patient is a 64-year-old male with a past medical history significant for esophageal cancer for the patient currently on chemotherapy patient was recently admitted at this facility and did have a port placed about 3 weeks ago at that time he was also admitted to the hospital as he did have elevated white count however infectious workup was negative there was concern for possible aspiration pneumonitis patient is now presented back to the hospital with chief complaint of increasing swelling to lower extremity that has been getting worse since he was discharged from hospital the patient also developed blisters to both lower extremity patient mentioned that he was feeling cold and has been usingheater however at the same time denies he has been too close to or has develop any dutton from the heater, apparently the patient son was trying to pop his blisters patient is now presented to the hospital with worsening swelling to the leg erythematous rash and multiple blisters on his lower extremity that has been getting worse over the last few days patient described the pain to the leg to be throbbing almost 7 out of 10 and no radiation the patient denies high- grade fever or chills though he was noticed to be leukopenic with a white count of 1.8 thousand, the patient did have elevated lactic acid, the patient was started on vancomycin has been admitted to the hospital infection disease consult for further recommendation regarding cellulitis and local wound care Review of Systems Positive point has been mentioned in the HPI rest of the systems are negative Past Medical History Past Medical History: Cancer, GERD/Reflux, Hyperlipidemia, Hypertension, Pneumonia, Prostate Disorder, Thyroid Disorder Additional Past Medical History / Comment(s): ANEMIA- hiatal hernia. had an episode of vertigo in May 2019. Esophageal cancer. Radiation therapy - Aug 2019. Pneumonia - 2019 History of Any Multi-Drug Resistant Organisms: None Reported Additional Past Surgical History / Comment(s): COLONOSCOPY. PROSTATE BX, right side port placement Past Anesthesia/Blood Transfusion Reactions: No Reported Reaction Past Psychological History: No Psychological Hx Reported Smoking Status: Current every day smoker Past Alcohol Use History: None Reported Additional Past Alcohol Use History / Comment(s): SMOKES 1/2 PPD SINCE AGE 18 Past Drug Use History: None Reported - Past Family History Mother Family Medical History: Liver Disease Medications and Allergies Home Medications Medication Instructions Recorded Confirmed Type Finasteride [Proscar] 5 mg PO HS 10/16/16 10/10/19 History Simvastatin [Zocor] 40 mg PO SUMOWEFR 10/16/16 10/10/19 History Levothyroxine Sodium [Synthroid] 75 mcg PO QAM 06/01/19 10/10/19 History Calcium Carbonate [Calcium] 600 mg PO DAILY 09/19/19 10/10/19 History Multivitamins, Thera [Multivitamin 1 tab PO DAILY 09/19/19 10/10/19 History (formulary)] HYDROcodone/APAP 5-325MG [[place] 1 tab PO Q6HR PRN 10/04/19 10/10/19 History 5-325] Allergies Allergy/AdvReac Type Severity Reaction Status Date / Time No Known Allergies Allergy Verified 10/10/19 14:06 Physical Exam Vitals: Vital Signs Temp Pulse Resp BP Pulse Ox 10/10/19 14:29 116/80 10/10/19 13:11 97 F L 53 L 16 108/78 96 10/10/19 11:05 97.2 F L 61 18 99/67 94 L Intake and Output 10/10/19 10/10/19 10/10/19 06:59 14:59 22:59 Other: Weight 68.039 kg 68.039 kg GENERAL DESCRIPTION: Elderly male lying in bed, no distress. No tachypnea or accessory muscle of respiration use. HEENT: Shows Pallor , no scleral icterus. Oral mucous membrane is dry. No pharyngeal erythema or thrush NECK: Trachea central, no thyromegaly. LUNGS: Unlabored breathing. Clear to auscultation anteriorly. No wheeze or crackle. HEART: S1, S2, regular rate and rhythm. No loud murmur ABDOMEN: Soft, no tenderness , guarding or rigidity, no organomegaly EXTREMITIES: Diffuse swelling of both lower 70 in this patient did have some erythematous rash and multiple blister with some yellowish fluid SKIN: No rash, no masses palpable. NEUROLOGICAL: The patient is awake, alert, oriented x3, mood and affect normal. Results CBC & Chem 7: 10/11/19 07:58 10/11/19 07:58 Labs: Abnormal Lab Results - Last 24 Hours (Table) 10/10/19 10/10/19 10/10/19 Range/Units 12:04 12:04 12:04 RBC 2.75 L (4.30-5.90) m/uL Hgb 8.1 L D (13.0-17.5) gm/dL Hct 25.8 L (39.0-53.0) % RDW 15.9 H (11.5-15.5) % Plt Count 36 L D (150-450) k/uL Lymphocytes # 0.5 L (1.0-4.8) k/uL PT (9.0-12.0) sec INR (<1.2) Sodium 133 L (137-145) mmol/L Carbon Dioxide 16 L (22-30) mmol/L BUN 63 H (9-20) mg/dL Creatinine 1.52 H (0.66-1.25) mg/dL Plasma Lactic Acid Mohinder 5.7 H* (0.7-2.0) mmol/L Calcium 7.4 L (8.4-10.2) mg/dL Total Bilirubin 2.5 H (0.2-1.3) mg/dL Alkaline Phosphatase 231 H (38-126) U/L Total Protein 5.8 L (6.3-8.2) g/dL Albumin 2.5 L (3.5-5.0) g/dL Urine Bilirubin (Negative) Urine WBC (0-5) /hpf Urine Bacteria (None) /hpf Hyaline Casts (0-2) /lpf Urine Mucus (None) /hpf 10/10/19 10/10/19 10/10/19 Range/Units 12:04 13:55 16:15 RBC (4.30-5.90) m/uL Hgb (13.0-17.5) gm/dL Hct (39.0-53.0) % RDW (11.5-15.5) % Plt Count (150-450) k/uL Lymphocytes # (1.0-4.8) k/uL PT 14.0 H (9.0-12.0) sec INR 1.4 H (<1.2) Sodium (137-145) mmol/L Carbon Dioxide (22-30) mmol/L BUN (9-20) mg/dL Creatinine (0.66-1.25) mg/dL Plasma Lactic Acid Mohinder 5.5 H* (0.7-2.0) mmol/L Calcium (8.4-10.2) mg/dL Total Bilirubin (0.2-1.3) mg/dL Alkaline Phosphatase (38-126) U/L Total Protein (6.3-8.2) g/dL Albumin (3.5-5.0) g/dL Urine Bilirubin 2+ H (Negative) Urine WBC 8 H (0-5) /hpf Urine Bacteria Rare H (None) /hpf Hyaline Casts 10 H (0-2) /lpf Urine Mucus Rare H (None) /hpf Assessment and Plan Assessment: 1-patient with bilateral lower extremity swelling possible fluid overload underlying DVT needs to be ruled out in this patient did have history of esophageal cancer on chemo, patient did have a blisters on both lower legs more marked on the left leg with some yellowish fluid underlying cellulitis from gram-positive skin leigh not entirely excluded (1) Cellulitis Current Visit: Yes Status: Acute Priority: High Code(s): L03.90 - CELLULITIS, UNSPECIFIED SNOMED Code(s): 550460772 Plan: 1-Vancomycin pharmacy to dose target trough of 15 while watching his kidney function and Vanco trough closely 2 local wound care to the leg wound with ABD to the blistered area and then the Ricky wrap from just above the toe to below the knee- We will follow on clinical condition and cultures to further adjust medication if needed Thank you for this consultation will follow this patient with you Time with Patient: Greater than 30
--- NOTE | 2019-10-11 19:30 | PN ---
PROGRESS NOTE DATE OF SERVICE: 10/11/2019. REASON FOR FOLLOW UP: Lower extremity cellulitis and blisters. INTERVAL HISTORY: The patient has been afebrile. Apparently the patient did have a hypertension and some for which the patient being transferred out to the telemetry unit. The patient currently denies having any chest pain. Did have some shortness of breath. No cough. No abdominal pain. Denies any worsening pain to the lower extremity. PHYSICAL EXAMINATION: Blood pressure 104/59 with a pulse of 90, temperature 97.5. He is 100% on nasal cannula. General description is an elderly male lying in bed in no distress. Respiratory system: Unlabored breathing. Clear to auscultation anteriorly. Heart S1, S2 regular rate and rhythm. Abdomen soft. Legs still have swelling though slightly decreased. Did have erythema and multiple blisters with yellow fluid. LABS: Hemoglobin 7, white count 1.4, BUN of 41, creatinine is 1.12. The lower extremity Doppler was negative for DVT. However, CT angiogram was positive for PE. DIAGNOSTIC IMPRESSION AND PLAN: Patient with bilateral lower extremity swelling in this patient who did have diffuse swelling with evidence of multiple blisters with component of cellulitis. The patient is covered with vancomycin. Local wound care with ABD and ROSCOE wrap from just above the toes to below the knee. Monitor clinical course closely. Continue supportive care. MMKEVINL / MILEN: [id number] /
--- NOTE | 2019-10-11 19:45 | CONS ---
CONSULTATION REASON FOR CONSULT: Acute kidney injury. HISTORY OF PRESENT ILLNESS: Patient is a 64-year-old male who was admitted to the hospital with complaints of sores in his feet. The patient has an underlying diagnosis of metastatic esophageal adenocarcinoma. He is status post radiation therapy and chemotherapy. He stated that he had superficial ulcers on his feet which eventually got worse and therefore he came in to the hospital. He denied any significant chest pains or cough. He denies any prior history of kidney diseases. The patient's creatinine was 1.5 and it is down to 1.12. Previous lab shows creatinine of 0.7 on 09/25/2019, CO2 was 14. Potassium was about 4.6. Blood pressure has been low with systolic 90s to 70 mmHg. Heart rate about 78 per minute. PAST MEDICAL HISTORY: Esophageal adenocarcinoma, metastatic, being followed by Oncology, gastroesophageal reflux disease, hyperlipidemia, hypertension, pneumonia, BPH, hiatal hernia. PAST SURGICAL HISTORY: Prostate biopsy, colonoscopy. SOCIAL HISTORY: Positive for smoking. No history of drug abuse or alcohol abuse. MEDICATIONS: Medications at home included Proscar, Zocor, Synthroid, calcium, [place]. ALLERGIES: None. REVIEW OF SYSTEMS: As per HPI. Other systems negative. PHYSICAL EXAMINATION: On examination, patient is comfortable, awake, alert, oriented x3, not in any acute distress. Blood pressure was 89/55, heart rate 83 per minute. He is afebrile. Examination of the heart S1, S2. Examination of the lungs, bilateral breath sounds are heard. ABDOMEN: Soft, nontender. Examination of lower extremities shows bilateral ulcers both feet and lower part of legs with erythema noted around them. [employer] exam grossly intact. LABS: Show sodium 136, potassium 4.6, chloride 114, CO2 is 14, BUN 41, creatinine 1.12, hemoglobin 7.0, white cell count 1.4, platelet count 28,000. ASSESSMENT: 1. Acute kidney injury prerenal currently improved. 2. Metabolic acidosis associated with hypotension and lactic acidosis currently improved. Lactic acid is down from 5.9 to 1.3 now. 3. Pancytopenia status post chemotherapy. 4. Metastatic esophageal cancer. PLAN: Change IV fluids to IV bicarb. Repeat labs in a.m. Monitor electrolytes. Thank you for this consultation. We will continue to follow the patient with you during his hospitalization. MMODL / IJN: [id number] /
--- NOTE | 2019-10-11 21:48 | P.HPIM ---
History of Present Illness H&P Date: 10/11/19 Chief Complaint: leg sores, weakness eGnaro Cuevas is a 64 yo M with PMH of esophageal cancer, HTN, HLD. He received his first cycle of chemotherapy last week and subsequently noticed some increased swelling in his legs as well as weakness. He states that he normally uses electric space heaters at home and was sitting next to his heaters and his legs were exposed. He noticed bullae develop on his bilateral distal lower extremities and they have been painful to touch and with friction. He denies any pain in his legs at rest. He otherwise complains of weakness and difficulty swallowing solid foods. In the ED his vitals were initially stable, labs showed pancytopenia with WBC 1.6k, Hgb 7.1, plt 23. Hypoalbuminemia to 2.5, procalcitonin 1.9. Lactic 5.7, multiple electrolyte derangements including calcium of 7.4 (corrected Ca 8.6). CXR no acute process. He was started on vancomycin and given IVF and subsequently developed a fib with RVR to 140s overnight, pt was started on metoprolol and his HR did improve and lactic acid normalized overnight. Review of Systems All systems: negative Constitutional: Reports as per HPI, Reports anorexia, Reports fatigue, Reports malaise, Reports weakness, Denies chills, Denies fever Eyes: denies blurred vision, denies pain Ears, nose, mouth and throat: Denies headache, Denies sore throat Cardiovascular: Denies chest pain, Denies shortness of breath Respiratory: Denies cough Gastrointestinal: Reports as per HPI, Reports bloating, Reports heartburn, Reports indigestion, Reports loss of appetite, Reports nausea, Denies abdominal pain, Denies diarrhea, Denies vomiting Musculoskeletal: Denies myalgias Integumentary: Reports wounds, Denies pruritus, Denies rash Neurological: Denies numbness, Denies weakness Psychiatric: Denies anxiety, Denies depression Endocrine: Denies fatigue, Denies weight change Past Medical History Past Medical History: Cancer, GERD/Reflux, Hyperlipidemia, Hypertension, Pneumonia, Prostate Disorder, Thyroid Disorder Additional Past Medical History / Comment(s): ANEMIA- hiatal hernia. had an episode of vertigo in May 2019. Esophageal cancer. Radiation therapy - Aug 2019. Pneumonia - 2019 History of Any Multi-Drug Resistant Organisms: None Reported Additional Past Surgical History / Comment(s): COLONOSCOPY. PROSTATE BX, right side port placement Past Anesthesia/Blood Transfusion Reactions: No Reported Reaction Past Psychological History: No Psychological Hx Reported Smoking Status: Current every day smoker Past Alcohol Use History: None Reported Additional Past Alcohol Use History / Comment(s): SMOKES 1/2 PPD SINCE AGE 18 Past Drug Use History: None Reported - Past Family History Mother Family Medical History: Liver Disease Medications and Allergies Home Medications Medication Instructions Recorded Confirmed Type RX: Finasteride [Proscar] 5 mg PO HS 10/16/16 10/10/19 History RX: Simvastatin [Zocor] 40 mg PO SUMOWEFR 10/16/16 10/10/19 History RX: Levothyroxine Sodium 75 mcg PO QAM 06/01/19 10/10/19 History [Synthroid] RX: Calcium Carbonate [Calcium] 600 mg PO DAILY 09/19/19 10/10/19 History RX: Multivitamins, Thera 1 tab PO DAILY 09/19/19 10/10/19 History [Multivitamin (formulary)] HYDROcodone/APAP 5-325MG [[place] 1 tab PO Q6HR PRN 10/04/19 10/10/19 History 5-325] Allergies Allergy/AdvReac Type Severity Reaction Status Date / Time No Known Allergies Allergy Verified 10/10/19 14:06 Physical Exam Vitals: Vital Signs Temp Pulse Pulse Resp BP BP BP 10/11/19 09:29 72/42 73/45 10/11/19 07:37 97.5 F L 89 18 87/50 10/11/19 05:46 97.4 F L 78 18 96/54 10/11/19 02:12 117 H 16 95/63 10/11/19 01:52 150 H 10/11/19 01:40 98.1 F 138 H 18 88/59 10/10/19 22:04 69 16 117/68 10/10/19 20:46 97.7 F 71 16 102/72 10/10/19 14:29 116/80 10/10/19 13:11 97 F L 53 L 16 108/78 10/10/19 11:05 97.2 F L 61 18 99/67 Pulse Ox 10/11/19 09:29 10/11/19 07:37 95 10/11/19 05:46 96 10/11/19 02:12 100 10/11/19 01:52 10/11/19 01:40 95 10/10/19 22:04 93 L 10/10/19 20:46 97 10/10/19 14:29 10/10/19 13:11 96 10/10/19 11:05 94 L Intake and Output 10/10/19 10/11/19 10/11/19 22:59 06:59 14:59 Intake Total 1270 1250 Output Total 375 200 Balance 895 1050 Intake: Intake, IV Titration 680 1250 Amount Sodium Chloride 0.9% 1, 680 000 ml @ 170 mls/hr IV . Q5H53M [facility] Rx#:[id number] Sodium Chloride 0.9% 2, 1250 000 ml @ 250 mls/hr IV . Q8H ONE Rx#:[id number] Oral 590 Output: Urine 375 200 Other: Voiding Method Urinal # Voids 1 Weight 68.039 kg General: cachexic white male in NAD Eyes: PERRL, EOMI, conjunctiva normal HENT: normocephalic, mucus membranes moist Neck: supple, no JVD Lungs: normal respiratory effort, no wheezes or rales CV: Irregular, normal rate, no murmur. Peripheral pulses 1+ Abdomen: soft, nondistended, no organomegaly Lymph: no cervical or axillary LAD Neuro: alert and oriented x3, no focal deficits Skin: Bilateral LE with petichiae, multiple large bullae with tense clear fluid. No drainage Results CBC & Chem 7: 10/11/19 07:58 10/11/19 07:58 Labs: Abnormal Lab Results - Last 24 Hours (Table) 10/10/19 10/10/19 10/10/19 Range/Units 12:04 12:04 12:04 WBC (3.8-10.6) k/uL RBC 2.75 L (4.30-5.90) m/uL Hgb 8.1 L D (13.0-17.5) gm/dL Hct 25.8 L (39.0-53.0) % RDW 15.9 H (11.5-15.5) % Plt Count 36 L D (150-450) k/uL Neutrophils # (1.3-7.7) k/uL Lymphocytes # 0.5 L (1.0-4.8) k/uL PT (9.0-12.0) sec INR (<1.2) Sodium 133 L (137-145) mmol/L Chloride (98-107) mmol/L Carbon Dioxide 16 L (22-30) mmol/L BUN 63 H (9-20) mg/dL Creatinine 1.52 H (0.66-1.25) mg/dL Glucose (74-99) mg/dL Plasma Lactic Acid Mohinder 5.7 H* (0.7-2.0) mmol/L Calcium 7.4 L (8.4-10.2) mg/dL Total Bilirubin 2.5 H (0.2-1.3) mg/dL Alkaline Phosphatase 231 H (38-126) U/L Total Protein 5.8 L (6.3-8.2) g/dL Albumin 2.5 L (3.5-5.0) g/dL Procalcitonin (0.02-0.09) ng/mL Urine Bilirubin (Negative) Urine WBC (0-5) /hpf Urine Bacteria (None) /hpf Hyaline Casts (0-2) /lpf Urine Mucus (None) /hpf 10/10/19 10/10/19 10/10/19 Range/Units 12:04 12:04 13:55 WBC (3.8-10.6) k/uL RBC (4.30-5.90) m/uL Hgb (13.0-17.5) gm/dL Hct (39.0-53.0) % RDW (11.5-15.5) % Plt Count (150-450) k/uL Neutrophils # (1.3-7.7) k/uL Lymphocytes # (1.0-4.8) k/uL PT 14.0 H (9.0-12.0) sec INR 1.4 H (<1.2) Sodium (137-145) mmol/L Chloride (98-107) mmol/L Carbon Dioxide (22-30) mmol/L BUN (9-20) mg/dL Creatinine (0.66-1.25) mg/dL Glucose (74-99) mg/dL Plasma Lactic Acid Mohinder (0.7-2.0) mmol/L Calcium (8.4-10.2) mg/dL Total Bilirubin (0.2-1.3) mg/dL Alkaline Phosphatase (38-126) U/L Total Protein (6.3-8.2) g/dL Albumin (3.5-5.0) g/dL Procalcitonin 1.89 H (0.02-0.09) ng/mL Urine Bilirubin 2+ H (Negative) Urine WBC 8 H (0-5) /hpf Urine Bacteria Rare H (None) /hpf Hyaline Casts 10 H (0-2) /lpf Urine Mucus Rare H (None) /hpf 10/10/19 10/10/19 10/10/19 Range/Units 16:15 20:11 23:06 WBC 1.6 L (3.8-10.6) k/uL RBC 2.45 L (4.30-5.90) m/uL Hgb 7.1 L (13.0-17.5) gm/dL Hct 23.0 L (39.0-53.0) % RDW 16.0 H (11.5-15.5) % Plt Count 23 L (150-450) k/uL Neutrophils # (1.3-7.7) k/uL Lymphocytes # 0.1 L (1.0-4.8) k/uL PT (9.0-12.0) sec INR (<1.2) Sodium (137-145) mmol/L Chloride (98-107) mmol/L Carbon Dioxide (22-30) mmol/L BUN (9-20) mg/dL Creatinine (0.66-1.25) mg/dL Glucose (74-99) mg/dL Plasma Lactic Acid Mohinder 5.5 H* 5.9 H* (0.7-2.0) mmol/L Calcium (8.4-10.2) mg/dL Total Bilirubin (0.2-1.3) mg/dL Alkaline Phosphatase (38-126) U/L Total Protein (6.3-8.2) g/dL Albumin (3.5-5.0) g/dL Procalcitonin (0.02-0.09) ng/mL Urine Bilirubin (Negative) Urine WBC (0-5) /hpf Urine Bacteria (None) /hpf Hyaline Casts (0-2) /lpf Urine Mucus (None) /hpf 10/11/19 10/11/19 Range/Units 07:58 07:58 WBC 1.4 L* (3.8-10.6) k/uL RBC 2.36 L (4.30-5.90) m/uL Hgb 7.0 L (13.0-17.5) gm/dL Hct 22.2 L (39.0-53.0) % RDW 15.8 H (11.5-15.5) % Plt Count 28 L (150-450) k/uL Neutrophils # 1.1 L (1.3-7.7) k/uL Lymphocytes # 0.2 L (1.0-4.8) k/uL PT (9.0-12.0) sec INR (<1.2) Sodium 136 L (137-145) mmol/L Chloride 114 H (98-107) mmol/L Carbon Dioxide 14 L (22-30) mmol/L BUN 41 H (9-20) mg/dL Creatinine (0.66-1.25) mg/dL Glucose 59 L (74-99) mg/dL Plasma Lactic Acid Mohinder (0.7-2.0) mmol/L Calcium 6.3 L* (8.4-10.2) mg/dL Total Bilirubin 2.3 H (0.2-1.3) mg/dL Alkaline Phosphatase 159 H (38-126) U/L Total Protein 4.5 L (6.3-8.2) g/dL Albumin 1.9 L (3.5-5.0) g/dL Procalcitonin (0.02-0.09) ng/mL Urine Bilirubin (Negative) Urine WBC (0-5) /hpf Urine Bacteria (None) /hpf Hyaline Casts (0-2) /lpf Urine Mucus (None) /hpf Assessment and Plan (1) Hypoalbuminemia Current Visit: Yes Status: Acute Code(s): E88.09 - OTH DISORDERS OF PLASMA- PROTEIN METABOLISM, NEC SNOMED Code(s): 208784811 (2) Esophageal cancer Current Visit: Yes Status: Acute Code(s): C15.9 - MALIGNANT NEOPLASM OF ESOPHAGUS, UNSPECIFIED SNOMED Code(s): 454532298 (3) Cachexia Current Visit: Yes Status: Acute Code(s): R64 - CACHEXIA SNOMED Code(s): 420374800 (4) Malignant cachexia Current Visit: Yes Status: Acute Code(s): R64 - [place] SNOMED Code(s): 796799115 (5) Antineoplastic chemotherapy induced pancytopenia Current Visit: Yes Status: Acute Priority: High Code(s): D61.810 - ANTINEOPLASTIC CHEMOTHERAPY INDUCED PANCYTOPENIA; T45.1X5A - ADVERSE EFFECT OF ANTINEOPLASTIC AND IMMUNOSUP DRUGS, INIT SNOMED Code(s): 408102245904741 (6) Cellulitis Current Visit: Yes Status: Acute Priority: High Code(s): L03.90 - CELLULITIS, UNSPECIFIED SNOMED Code(s): 522633464 (7) Lower extremity edema Current Visit: Yes Status: Acute Priority: High Code(s): R60.0 - LOCALIZED EDEMA SNOMED Code(s): 501984842 (8) Nonhealing ulcer of left lower extremity with fat layer exposed Current Visit: Yes Status: Acute Code(s): L97.922 - NON-PRS CHR ULC UNSP PRT OF L LOW LEG W FAT LAYER EXPOSED SNOMED Code(s): 63351891 (9) Nonhealing ulcer of right lower extremity with fat layer exposed Current Visit: Yes Status: Acute Code(s): L97.912 - NON-PRS CHR ULC UNSP PRT OF R LOW LEG W FAT LAYER EXPOSED SNOMED Code(s): 58189878 Plan: 1. Bilateral LE bullae, cellulitis, elevated procalcitonin. Vancomycin, pharmacy to dose. Wound team consulted, honey wraps. Keep legs elevated 2. Atrial fibrillation with RVR. Secondary to intravascular volume depletion r/t malignancy, infection. Cardiology and Oncology following. Pt started on lopressor. Anticoagulation contraindicated. Gentle hydration 3. Elevated lactic acid. Secondary to above. Resolved with IVF 4. Chemotherapy induced pancytopenia. Transfuse to keep hgb >7, continue to monitor platelets 5. Acute kidney injury. Likely secondary to intravascular depletion. Improving. Nephrology consult for further evaluation
[2019-10-11] MEDS: VANCOMYCIN 1,250 MG in SODIUM CHLORIDE 0.9% 250 ML IVPB SCH (22:20)
[2019-10-11] MEDS: MORPHINE SULFATE 4 MG/ML SYRINGE IVP PRN (22:26)
[2019-10-12] MEDS: DEXTROSE 5% IN WATER 1,000 ML with SODIUM BICARB (1 MEQ/ML) 150 ML IV SCH (04:05)
[2019-10-12 06:19] LABS: African American GFR (CKD) >90 (>60 ml/min/1.73 sqM); Non-African American GFR(CKD) >90 (>60 ml/min/1.73 sqM)
[2019-10-12] MEDS: VANCOMYCIN 1,250 MG in SODIUM CHLORIDE 0.9% 250 ML IVPB SCH ×2 (06:48→18:46)
[2019-10-12] MEDS: PANTOPRAZOLE 40 MG/10 ML VIAL IVP SCH ×2 (08:58→22:03)
[2019-10-12] MEDS: METOPROLOL TARTRATE 25 MG TAB PO SCH ×2 (08:59→22:08)
[2019-10-12] MEDS ORDERED: HEPARIN SODIUM,PORCINE 5,000 UNIT/ML 1 ML VIAL IV ONE ×2 (09:42→13:05)
[2019-10-12] MEDS ORDERED: HEPARIN SODIUM,PORCINE 5,000 UNIT/ML 1 ML VIAL IV PRN ×2 (09:42→13:05)
[2019-10-12] MEDS ORDERED: HEPARIN SOD,PORK IN 0.45% NACL 25,000 UNIT in 0.45% NACL 1 250ML.BAG IV SCH (09:45)
[2019-10-12 10:19] LABS: Anisocytosis Slight; Hypochromasia Slight; MCH 29.4 pg (25.0-35.0); MCHC 30.9 g/dL (31.0-37.0); MCV 95.3 fL (80.0-100.0); Mean Platelet Volume 9.2; RBC 2.06 m/uL (4.30-5.90); RDW 16.5 % (11.5-15.5)
[2019-10-12 10:29] LABS: African American GFR (CKD) >90 (>60 ml/min/1.73 sqM); Anion Gap 6 mmol/L; Blood Urea Nitrogen 21 mg/dL (9-20); Carbon Dioxide 21 mmol/L (22-30); Chloride 108 mmol/L (98-107); Glucose 85 mg/dL (74-99); Non-African American GFR(CKD) >90 (>60 ml/min/1.73 sqM); Potassium 4.3 mmol/L (3.5-5.1); Sodium 135 mmol/L (137-145)
[2019-10-12 10:32] LABS: INR 1.5 (<1.2); Partial Thromboplastin Time 30.9 sec (22.0-30.0); Prothrombin Time 14.6 sec (9.0-12.0)
[2019-10-12 10:40] LABS: Calcium 6.4 mg/dL (8.4-10.2)
[2019-10-12 11:00] LABS: HGB 6.1 gm/dL (13.0-17.5); WBC 0.6 k/uL (3.8-10.6)
[2019-10-12 11:01] LABS: HCT 19.6 % (39.0-53.0)
--- NOTE | 2019-10-12 11:40 | PN ---
PROGRESS NOTE The patient is seen for followup for acute kidney injury. Renal function is improved. Creatinine down from 1.5 to 0.8 mg/dL. Patient does have lower extremity edema and bilateral lower extremity wounds. At this time, patient does have 1+ protein in his urine. Albumin is quite low. Patient is maintained on bicarb drip for metabolic acidosis. He had been on diuretics at home for a short period of time. Currently being treated for lower extremity wounds and maintained on vancomycin. PHYSICAL EXAMINATION: On examination today, blood pressure is 104/57, heart rate 86 per minute. He is afebrile. EXAMINATION OF THE HEART: S1, S2. EXAMINATION OF THE LUNGS: Bilateral breath sounds are heard. ABDOMEN: Soft, nontender. Examination of lower extremities shows bilateral feet to be wrapped. There is edema noted, 1+ bilaterally. CLINICAL HAEMATOLOGIST exam is grossly intact. LABS: Labs show sodium 135, potassium 4.3, chloride 108, CO2 is 21, BUN 21, creatinine 0.8. Calcium at 6.4. Hemoglobin was 7.0 yesterday. ASSESSMENT: 1. Acute kidney injury prerenal currently improved. 2. Non-gap metabolic acidosis, status post bicarb drip currently improved. 3. Lower extremity edema with UA showing 1+ protein. I doubt any nephrotic range proteinuria as a cause of the edema. However, we will check a urine protein creatinine ratio. Albumin is quite low at 1.9 and patient will be started on a small amount of diuretics as well. I will discontinue the bicarb drip for now. Since blood pressure remains low, I will add midodrine to help with the hypotension. Check echocardiogram if not done recently to assess patient's ejection fraction. 4. Bilateral lower extremity wounds, maintained on antibiotics. 5. History of metastatic esophageal cancer, status post chemotherapy. PLAN: Discontinue bicarb drip. Add low-dose loop diuretics. Add midodrine. Check urine protein creatinine ratio as patient does have proteinuria; however, I doubt that it is nephrotic range and unlikely to be contributing to the edema. Previous UA showed no protein on 09/22/2019. MMODL / IJN: [id number] /
[2019-10-12 12:03] LABS: Poikilocytosis (M) Present
[2019-10-12] MEDS ORDERED: HEPARIN SODIUM,PORCINE 5,000 UNIT/ML 1 ML VIAL SQ STA (12:37)
[2019-10-12] MEDS ORDERED: PHYTONADIONE 2 MG in SODIUM CHLORIDE 0.9% 50 ML IVPB STA (12:39)
[2019-10-12] MEDS: FILGRASTIM-SNDZ 300 MCG/0.5 ML SYRINGE SQ SCH (12:45)
--- NOTE | 2019-10-12 12:58 | P.PN ---
Subjective Progress Note Date: 10/12/19 This is a 64-year-old gentleman with past medical history significant for hypertension, hyperlipidemia, esophageal cancer currently receiving chemotherapy, significant bilateral lower extremity ulcers on his legs. He had a port placed about 3 weeks ago and since then has noticed an increase in swelling of his legs and testicles. Patient had been admitted to the hospital with dehydration requiring of fluid, his oncologist also has been somewhat hesitant to diurese the patient because of the recent dehydration. Chest x-ray on admission did not reveal any acute process. His EKG showed atrial fibril lation with moderately rapid ventricular response for which cardiology consultation was requested. Blood pressure this morning 72/40, heart rate in the 80s, 95% on 2 L of oxygen. White blood cell count 1.4 this morning hemoglobin 7, platelet count 28. Sodium 136, potassium 4.6, BUN 41, creatinine 1.1, plasma lactic acid 5.9 on admission. Magnesium 2.1. Total bilirubin 2.3 albumin 1.9. 10/12/2019\ Patient had a venous duplex study performed, unable to adequately assess the popliteal vein or upper calf pain, no DVT within the groin or thigh, no evidence of DVT within the left lower extremity. CTA of the chest was positive for segmental branch pulmonary embolism no evidence of right heart strain. Suspicious 2.5 left adrenal mass suspicious for metastatic disease with a 1.5 cm hepatic lobe lesion also suspicious for metastases. Blood pressure 104/60 with a heart rate in the 70s to 80s, 99% on room air. White blood cell count today 0.6, hemoglobin 6.1, platelet count 50. Sodium 135, potassium 4.3, BUN 21, creatinine 0.8. Objective - Vital Signs Vital signs: Vital Signs Temp 99.3 F 10/12/19 04:00 Pulse 86 10/12/19 08:00 Resp 16 10/12/19 08:00 BP 104/57 10/12/19 08:00 Pulse Ox 99 10/12/19 08:00 Intake & Output 10/11/19 10/12/19 10/12/19 18:59 06:59 18:59 Intake Total 200 1004 Output Total 300 850 250 Balance -100 154 -250 Weight 68.039 kg 62 kg Intake: Oral 200 660 Blood Product 0 344 Platelet Pheresis Acda1 0 344 Unit [id number] Output: Urine 300 850 250 Other: Voiding Method Urinal Urinal # Voids 300 3 - Exam PHYSICAL EXAMINATION: GENERAL: Frail 64-year-old gentleman in no acute distress at the time of my examination HEENT: Head is atraumatic, normocephalic. Pupils equal, round. Sclera anicteric. Conjunctiva are clear. Mucous membranes of the mouth are moist. Neck is supple. There is no elevated jugular venous pressure. No carotid bruit is heard. HEART EXAMINATION: S1 and S2 irregularly irregular a systolic murmur is heard CHEST EXAMINATION: Lungs are clear to auscultation and precussion. No chest wall tenderness is noted on palpation or with deep breathing. ABDOMEN: Soft, nontender. Bowel sounds are heard. No organomegaly noted. EXTREMITIES:[ 2+ peripheral pulses with evidence of peripheral edema , significant open ulcerated areas on his bilateral lower extremities NEUROLOGIC patient is awake, alert and oriented 2 . - Labs CBC & Chem 7: 10/12/19 09:53 10/12/19 09:53 Labs: Abnormal Lab Results - Last 24 Hours (Table) 10/11/19 10/12/19 10/12/19 Range/Units 14:53 09:53 09:53 WBC (3.8-10.6) k/uL RBC (4.30-5.90) m/uL Hgb (13.0-17.5) gm/dL Hct (39.0-53.0) % MCHC (31.0-37.0) g/dL RDW (11.5-15.5) % Plt Count (150-450) k/uL PT (9.0-12.0) sec INR (<1.2) APTT (22.0-30.0) sec Sodium 135 L (137-145) mmol/L Chloride 108 H (98-107) mmol/L Carbon Dioxide 21 L (22-30) mmol/L BUN 21 H (9-20) mg/dL Plasma Lactic Acid Mohinder 3.7 H* (0.7-2.0) mmol/L Calcium 6.4 L* (8.4-10.2) mg/dL Crossmatch See Detail 10/12/19 10/12/19 Range/Units 09:53 09:53 WBC 0.6 L* (3.8-10.6) k/uL RBC 2.06 L (4.30-5.90) m/uL Hgb 6.1 L* (13.0-17.5) gm/dL Hct 19.6 L* (39.0-53.0) % MCHC 30.9 L (31.0-37.0) g/dL RDW 16.5 H (11.5-15.5) % Plt Count 50 L D (150-450) k/uL PT 14.6 H (9.0-12.0) sec INR 1.5 H (<1.2) APTT 30.9 H (22.0-30.0) sec Sodium (137-145) mmol/L Chloride (98-107) mmol/L Carbon Dioxide (22-30) mmol/L BUN (9-20) mg/dL Plasma Lactic Acid Mohinder (0.7-2.0) mmol/L Calcium (8.4-10.2) mg/dL Crossmatch Microbiology - Last 24 Hours (Table) 10/10/19 12:04 Blood Culture - Preliminary Blood No Growth after 24 hours Assessment and Plan Plan: Assessment and plan #1 bilateral lower extremity edema #2 esophageal cancer stage IV #3 atrial fibrillation with moderately rapid ventricular response, appears to be of new onset, persistent #4 hypotension #5 chronic anemia, likely secondary to cancer #6 positive PE Plan From cardiology's perspective, we'll follow this patient along with you now on an as-needed basis only, please don't hesitate to call with any questions. DNP note has been reviewed, I agree with a documented findings and plan of care. Patient was seen and examined.
--- NOTE | 2019-10-12 13:29 | CDI ---
Documentation Clarification Form Date: 10/12/2019 01:08:17 PM From: Manda Puckett RN CCDS Admit Date: 10/10/2019 01:31:00 PM Patient Name: Genaro Cuevas Visit Number: [id number] Discharge Date: ATTENTION: The Clinical Documentation Specialists (CDI) and [facility] Coding Staff appreciate your assistance in clarifying documentation. Please respond to the clarification below the line at the bottom and electronically sign. The CDI & [facility] Coding staff will review the response and follow-up if needed. Please note: Queries are made part of the Legal Health Record. If you have any questions, please contact the author of this message via ITS. Dr. Ricardo Juarez A right inner buttock stage II pressure ulcer was documented in the Nursing assessment 10/10 and in following assessments History/Risk Factors: 64-year-old male presents to the ED with increased swelling in his legs after first cycle of chemotherapy. Risk Factors Esophageal cancer, Hypoalbuminemia, described as having cachexia Clinical Indicators: Location: right inner buttock. Nursing assessment 10/10 Wound description: length 4cm, width 1.2cm, granulation 76-100%, Granulation quality pink and pale. Wound margins distinct. Mary wound Texture no abnormality, Mary Wound moisture dry/scaly, mary wound color erythema, mary wound tenderness on palpitation yes, drainage serous, amount of drainage scant Treatment: Foam with border, sacral Opti foam Elements for accurate and compliant documentation of an ulcer: *The location/laterality of the ulcer *Etiology (decubitus/pressure, diabetic, PVD) *Stage I-IV, Unstageable, Suspected Deep Tissue Injury (To the deepest stage) *If the ulcer was present at admission (POA) or occurred after admission In your professional opinion, can you please clarify the diagnosis, location, laterality and whether present on admission (POA): * Stage 2 Pressure/Decubitus Ulcer (Partial thickness, loss of dermis, pink wound bed) * Other condition, please specify * Unable to determine Please indicate etiology of pressure ulcer (if known). (Last Revision: May 2017) Stage 2 pressure ulcer MTDD
[2019-10-12] MEDS: HEPARIN SOD,PORK IN 0.45% NACL 25,000 UNIT in 0.45% NACL 1 250ML.BAG IV SCH (13:56)
[2019-10-12 15:44] LABS: Platelet Count 50 k/uL (150-450)
[2019-10-12] MEDS ORDERED: VANCOMYCIN TROUGH DUE 1 EACH MISC MISCELLANE ONE (17:00)
--- NOTE | 2019-10-12 17:46 | P.PN ---
Subjective Progress Note Date: 10/12/19 Principal diagnosis: bilateral lower extremity swelling and ulcerations In follow-up today patient is very vocal about his dissatisfaction of his health condition requiring so much testing, treatment and providers. Patient has no physical complaints other than some mild discomfort, denies fevers, nausea, appetite is overall poor, no chest pain, difficulty breathing, abdominal pain, no pain in his lower extremities, his legs have been wrapped, the swelling is slightly improved Objective - Vital Signs Vital signs: Vital Signs Temp 98.7 F 10/12/19 15:33 Pulse 91 10/12/19 15:33 Resp 16 10/12/19 15:33 BP 85/47 10/12/19 15:33 Pulse Ox 99 10/12/19 08:00 Intake & Output 10/11/19 10/12/19 10/12/19 18:59 06:59 18:59 Intake Total 200 1004 840 Output Total 031 276 4352 Balance -100 154 -410 Weight 68.039 kg 62 kg Intake: Oral 200 660 840 Blood Product 0 344 0 Platelet Pheresis Acda1 0 344 Unit [id number] Rc As-1 Unit 0 [id number] Output: Urine 906 252 8649 Other: Voiding Method Urinal Urinal # Voids 300 3 - Constitutional General appearance: Present: no acute distress, thin - EENT Eyes: Present: anicteric sclerae, EOMI, poor dentition ENT: Present: normal oropharynx - Respiratory Respiratory: bilateral: CTA - Cardiovascular Heart sounds: normal: S1, S2 Abnormal Heart Sounds: Absent: systolic murmur, diastolic murmur, rub, S3 Gallop, S4 Gallop, click, other - Peripheral edema leg Peripheral Edema: bilateral: 2+, Pitting - Gastrointestinal General gastrointestinal: Present: normal bowel sounds, scaphoid, soft - Neurologic Neurologic: Present: CNII-XII intact - Musculoskeletal Musculoskeletal: Present: generalized weakness - Psychiatric Psychiatric: Present: A&O x's 3 - Labs CBC & Chem 7: 10/12/19 09:53 10/12/19 09:53 Labs: Abnormal Lab Results - Last 24 Hours (Table) 10/11/19 10/12/19 10/12/19 Range/Units 14:53 09:53 09:53 WBC (3.8-10.6) k/uL RBC (4.30-5.90) m/uL Hgb (13.0-17.5) gm/dL Hct (39.0-53.0) % MCHC (31.0-37.0) g/dL RDW (11.5-15.5) % Plt Count (150-450) k/uL PT (9.0-12.0) sec INR (<1.2) APTT (22.0-30.0) sec Sodium 135 L (137-145) mmol/L Chloride 108 H (98-107) mmol/L Carbon Dioxide 21 L (22-30) mmol/L BUN 21 H (9-20) mg/dL Plasma Lactic Acid Mohinder 3.7 H* (0.7-2.0) mmol/L Calcium 6.4 L* (8.4-10.2) mg/dL Crossmatch See Detail 10/12/19 10/12/19 10/12/19 Range/Units 09:53 09:53 14:01 WBC 0.6 L* (3.8-10.6) k/uL RBC 2.06 L (4.30-5.90) m/uL Hgb 6.1 L* (13.0-17.5) gm/dL Hct 19.6 L* (39.0-53.0) % MCHC 30.9 L (31.0-37.0) g/dL RDW 16.5 H (11.5-15.5) % Plt Count 50 L D (150-450) k/uL PT 14.6 H (9.0-12.0) sec INR 1.5 H (<1.2) APTT 30.9 H (22.0-30.0) sec Sodium (137-145) mmol/L Chloride (98-107) mmol/L Carbon Dioxide (22-30) mmol/L BUN (9-20) mg/dL Plasma Lactic Acid Mohinder 5.2 H* (0.7-2.0) mmol/L Calcium (8.4-10.2) mg/dL Crossmatch Microbiology - Last 24 Hours (Table) 10/10/19 12:04 Blood Culture - Preliminary Blood No Growth after 48 hours Assessment and Plan (1) Pulmonary embolism Narrative/Plan: CTA done due to new onset of atrial fibrillation and malignancy history. Patient was found to be positive for right pulmonary embolism. When diagnosed though, patient's platelets were in the 20,000 range. Platelets were administered with the intent being to increase to 50,000 or higher so that anticoagulation can begin. Patient's platelets are 50,000 today. Low intensity heparin drip has been initiated. Heparin is the fastest to reverse if patient has suspected bleeding. Anticipate recovery of platelets between chemotherapy treatments but, concern is that, since currently there are plans to cont patient on treatment, his platelets will drop again from chemo. Dr. Weeks has talked with Vascular regarding IVC filter placement. Current Visit: Yes Status: Acute Priority: High Code(s): I26.99 - OTHER PULMONARY EMBOLISM WITHOUT ACUTE COR PULMONALE SNOMED Code(s): 89446780 (2) A-fib Narrative/Plan: New onset, no cardiac history. Cardiology consulted. Medical mgmt CTA + PE. BLE doppler neg for DVT. Platelets given, low intensity heparin initiated Current Visit: Yes Status: Acute Priority: High Code(s): I48.91 - UNS PECIFIED ATRIAL FIBRILLATION SNOMED Code(s): 69087465 (3) Cellulitis Narrative/Plan: Result of persistent edema, intravascular dehydration, malignancy and poor nutrition. Infectious Disease, Dietitian and Wound Care consulted. Current Visit: Yes Status: Acute Priority: High Code(s): L03.90 - CELLULITIS, UNSPECIFIED SNOMED Code(s): 501973897 (4) Lower extremity edema Narrative/Plan: With resulting severe wounds and ulcerations. Slightly better with ROSCOE wraps. Dr. Weeks discussed case with Nephrology, pending recommendations regarding diuresis with intravascular dehydration Current Visit: Yes Status: Acute Priority: High Code(s): R60.0 - LOCALIZED EDEMA SNOMED Code(s): 589039793 (5) Esophageal cancer, stage IV Narrative/Plan: Patient is status post palliative radiation, with patient denying any dysphagia or odynophagia. He is status post first cycle of chemotherapy. He feels he tolerated it well, not so much hematologically. Hope is that with treatment of his underlying malignancy, metabolically pt will be able to stabilize and heal from his current issues. Multidisciplinary approach for treatment. Current Visit: No Status: Acute Priority: High Code(s): C15.9 - MALIGNANT NEOPLASM OF ESOPHAGUS, UNSPECIFIED SNOMED Code(s): 676462114 (6) Antineoplastic chemotherapy induced pancytopenia Narrative/Plan: Transfused to keep hemoglobin 7 or higher. 1 unit was ordered by Attending Transfuse to keep platelets greater than 50,000 as pt is on anticoagulation GCSF has been initiated for low WBC/ANC, cont. Current Visit: Yes Status: Acute Priority: High Code(s): D61.810 - A NTINEOPLASTIC CHEMOTHERAPY INDUCED PANCYTOPENIA; T45.1X5A - ADVERSE EFFECT OF ANTINEOPLASTIC AND IMMUNOSUP DRUGS, INIT SNOMED Code(s): 181067273950958 Plan: attests: I preformed a history and physical examination of this patient, developed impression and plan of care. Discussed with dictator. I agree with dictator's note, documented as a scribe
--- NOTE | 2019-10-12 23:24 | PN ---
PROGRESS NOTE DATE OF SERVICE: 10/12/2019 REASON FOR FOLLOWUP: Bilateral lower extremity blisters and cellulitis. INTERVAL HISTORY: The patient is currently afebrile, has been breathing comfortably. The patient denies having any chest pain or shortness of breath or cough. No nausea, vomiting or any worsening pain to the leg. PHYSICAL EXAMINATION: Blood pressure 96/56, pulse of 98, temperature 98.8. General description is an elderly male lying in bed in no distress. RESPIRATORY SYSTEM: Unlabored breathing. Clear to auscultation anteriorly. HEART: S1, S2. Regular rate and rhythm. ABDOMEN: Soft. No tenderness. Legs are currently wrapped up. No obvious drainage on the dressing. LABS: Hemoglobin is 6.9, white count 0.6, BUN of 21, creatinine 0.88. DIAGNOSTIC IMPRESSION AND PLAN: Patient with bilateral lower extremity blisters and concern for possible cellulitis. The patient is currently covered with vancomycin. Local care as ordered. Will reevaluate the legs tomorrow during to adjust further if needed. Continue with supportive care. MMODL / IJN: [id number] /
[2019-10-13 04:25] LABS: % Iron Saturation 4.32 (15.00-50.00); Ferritin 1619.4 ng/mL (22.0-322.0)
[2019-10-13 06:13] LABS: African American GFR (CKD) >90 (>60 ml/min/1.73 sqM); Non-African American GFR(CKD) >90 (>60 ml/min/1.73 sqM)
[2019-10-13] MEDS: VANCOMYCIN 1,250 MG in SODIUM CHLORIDE 0.9% 250 ML IVPB SCH ×2 (06:17→18:09)
[2019-10-13 06:35] LABS: Anisocytosis Slight; HCT 21.6 % (39.0-53.0); HGB 7.1 gm/dL (13.0-17.5); MCH 30.3 pg (25.0-35.0); MCV 91.9 fL (80.0-100.0); Mean Platelet Volume 9.6; Platelet Count 40 k/uL (150-450); RBC 2.35 m/uL (4.30-5.90); RDW 16.4 % (11.5-15.5)
[2019-10-13 07:01] LABS: Poikilocytosis (M) Present; WBC 0.5 k/uL (3.8-10.6)
--- NOTE | 2019-10-13 08:47 | P.PN ---
Subjective Progress Note Date: 10/12/19 Genaro Cuevas is a 64 yo M with PMH of esophageal cancer, HTN, HLD. He received his first cycle of chemotherapy last week and subsequently noticed some increased swelling in his legs as well as weakness. He states that he normally uses electric space heaters at home and was sitting next to his heaters and his legs were exposed. He noticed bullae develop on his bilateral distal lower extremities and they have been painful to touch and with friction. He denies any pain in his legs at rest. He otherwise complains of weakness and difficulty swallowing solid foods. In the ED his vitals were initially stable, labs showed pancytopenia with WBC 1.6k, Hgb 7.1, plt 23. Hypoalbuminemia to 2.5, procalcitonin 1.9. Lactic 5.7, multiple electrolyte derangements including calcium of 7.4 (corrected Ca 8.6). CXR no acute process. He was started on vancomycin and given IVF and subsequently developed a fib with RVR to 140s overnight, pt was started on metoprolol and his HR did improve and lactic acid normalized overnight. 10/12: Pt was found to have DVT and started on heparin. Platelets are stable but Hgb down to 6.1. He continues on IV vancomycin. Vitals stable. He denies leg pain. Objective - Vital Signs Vital signs: Vital Signs Temp 97.9 F 10/13/19 07:55 Pulse 78 10/13/19 07:55 Resp 20 10/13/19 07:55 BP 100/60 10/13/19 07:55 Pulse Ox 96 10/13/19 07:55 Intake & Output 10/12/19 10/13/19 10/13/19 18:59 06:59 18:59 Intake Total 1230 116.188 Output Total 1250 525 Balance -20 -408.812 Weight 65 kg Intake: Intake, IV Titration 116.188 Amount Heparin Sod,Pork in 0.45% 116.188 NaCl 25,000 unit In 0.45 % NaCl 1 250ml.bag @ 12 UNITS/KG/HR 7.44 mls/hr IV .Q24H HANK Rx#: [id number] Oral 920 Blood Product 310 Rc As-1 Unit 310 [id number] Output: Urine 1250 525 Other: Voiding Method Urinal Urinal # Voids 1 - Exam CV: Irregular, normal rate, no murmur. Peripheral pulses 1+ Abdomen: soft, nondistended, no organomegaly Lymph: no cervical or axillary LAD Neuro: alert and oriented x3, no focal deficits Skin: Bilateral LE with petichiae, multiple large bullae with tense clear fluid. No drainage - Labs CBC & Chem 7: 10/13/19 05:23 10/13/19 05:23 Labs: Abnormal Lab Results - Last 24 Hours (Table) 10/11/19 10/12/19 10/12/19 Range/Units 14:53 09:53 09:53 WBC (3.8-10.6) k/uL RBC (4.30-5.90) m/uL Hgb (13.0-17.5) gm/dL Hct (39.0-53.0) % MCHC (31.0-37.0) g/dL RDW (11.5-15.5) % Plt Count (150-450) k/uL PT (9.0-12.0) sec INR (<1.2) APTT (22.0-30.0) sec Sodium 135 L (137-145) mmol/L Chloride 108 H (98-107) mmol/L Carbon Dioxide 21 L (22-30) mmol/L BUN 21 H (9-20) mg/dL Plasma Lactic Acid Mohinder 3.7 H* (0.7-2.0) mmol/L Calcium 6.4 L* (8.4-10.2) mg/dL Iron (65-175) ug/dL TIBC (228-460) ug/dL % Saturation (15.00-50.00) Ferritin (22.0-322.0) ng/mL Vitamin B12 (200.0-944.0) pg/mL Crossmatch See Detail 10/12/19 10/12/19 10/12/19 Range/Units 09:53 09:53 14:01 WBC 0.6 L* (3.8-10.6) k/uL RBC 2.06 L (4.30-5.90) m/uL Hgb 6.1 L* (13.0-17.5) gm/dL Hct 19.6 L* (39.0-53.0) % MCHC 30.9 L (31.0-37.0) g/dL RDW 16.5 H (11.5-15.5) % Plt Count 50 L D (150-450) k/uL PT 14.6 H (9.0-12.0) sec INR 1.5 H (<1.2) APTT 30.9 H (22.0-30.0) sec Sodium (137-145) mmol/L Chloride (98-107) mmol/L Carbon Dioxide (22-30) mmol/L BUN (9-20) mg/dL Plasma Lactic Acid Mohinder 5.2 H* (0.7-2.0) mmol/L Calcium (8.4-10.2) mg/dL Iron (65-175) ug/dL TIBC (228-460) ug/dL % Saturation (15.00-50.00) Ferritin (22.0-322.0) ng/mL Vitamin B12 (200.0-944.0) pg/mL Crossmatch 10/12/19 10/12/19 10/13/19 Range/Units 19:21 19:21 04:21 WBC (3.8-10.6) k/uL RBC (4.30-5.90) m/uL Hgb (13.0-17.5) gm/dL Hct (39.0-53.0) % MCHC (31.0-37.0) g/dL RDW (11.5-15.5) % Plt Count (150-450) k/uL PT (9.0-12.0) sec INR (<1.2) APTT 33.1 H (22.0-30.0) sec Sodium (137-145) mmol/L Chloride (98-107) mmol/L Carbon Dioxide (22-30) mmol/L BUN (9-20) mg/dL Plasma Lactic Acid Mohinder 3.0 H* (0.7-2.0) mmol/L Calcium (8.4-10.2) mg/dL Iron 7 L (65-175) ug/dL TIBC 162 L (228-460) ug/dL % Saturation 4.32 L (15.00-50.00) Ferritin 1619.4 H (22.0-322.0) ng/mL Vitamin B12 3298.0 H (200.0-944.0) pg/mL Crossmatch 10/13/19 10/13/19 Range/Units 05:23 05:23 WBC 0.5 L* (3.8-10.6) k/uL RBC 2.35 L (4.30-5.90) m/uL Hgb 7.1 L (13.0-17.5) gm/dL Hct 21.6 L (39.0-53.0) % MCHC (31.0-37.0) g/dL RDW 16.4 H (11.5-15.5) % Plt Count 40 L (150-450) k/uL PT (9.0-12.0) sec INR (<1.2) APTT (22.0-30.0) sec Sodium (137-145) mmol/L Chloride (98-107) mmol/L Carbon Dioxide (22-30) mmol/L BUN (9-20) mg/dL Plasma Lactic Acid Mohinder 2.1 H* (0.7-2.0) mmol/L Calcium (8.4-10.2) mg/dL Iron (65-175) ug/dL TIBC (228-460) ug/dL % Saturation (15.00-50.00) Ferritin (22.0-322.0) ng/mL Vitamin B12 (200.0-944.0) pg/mL Crossmatch Microbiology - Last 24 Hours (Table) 10/10/19 12:04 Blood Culture - Preliminary Blood No Growth after 48 hours Assessment and Plan (1) Hypoalbuminemia Current Visit: Yes Status: Acute Code(s): E88.09 - OTH DISORDERS OF PLASMA- PROTEIN METABOLISM, NEC SNOMED Code(s): 855369097 (2) Esophageal cancer Current Visit: Yes Status: Acute Code(s): C15.9 - MALIGNANT NEOPLASM OF ESOPHAGUS, UNSPECIFIED SNOMED Code(s): 314591103 (3) Cachexia Current Visit: Yes Status: Acute Code(s): R64 - CACHEXIA SNOMED Code(s): 565063291 (4) Malignant cachexia Current Visit: Yes Status: Acute Code(s): R64 - CACHEXIA SNOMED Code(s): 542031316 (5) Antineoplastic chemotherapy induced pancytopenia Current Visit: Yes Status: Acute Priority: High Code(s): D61.810 - A NTINEOPLASTIC CHEMOTHERAPY INDUCED PANCYTOPENIA; T45.1X5A - ADVERSE EFFECT OF ANTINEOPLASTIC AND IMMUNOSUP DRUGS, INIT SNOMED Code(s): 563315195812238 (6) Cellulitis Current Visit: Yes Status: Acute Priority: High Code(s): L03.90 - CELLULITIS, UNSPECIFIED SNOMED Code(s): 244591408 (7) Lower extremity edema Current Visit: Yes Status: Acute Priority: High Code(s): R60.0 - LOCALIZED EDEMA SNOMED Code(s): 161544877 (8) Nonhealing ulcer of left lower extremity with fat layer exposed Current Visit: Yes Status: Acute Code(s): L97.922 - NON-PRS CHR ULC UNSP PRT OF L LOW LEG W FAT LAYER EXPOSED SNOMED Code(s): 48360261 (9) Nonhealing ulcer of right lower extremity with fat layer exposed Current Visit: Yes Status: Acute Code(s): L97.912 - NON-PRS CHR ULC UNSP PRT OF R LOW LEG W FAT LAYER EXPOSED SNOMED Code(s): 50610038 Plan: Continue with lower extremity honey wraps and vancomycin. Start heparin for DVT and transfuse 1 U PRBC over 4 hours. Continue to monitor closely
--- NOTE | 2019-10-13 09:31 | CDI ---
Documentation Clarification Form Date: 10/13/2019 08:25:29 AM From: Manda Puckett RN CCDS Admit Date: 10/10/2019 01:31:00 PM Patient Name: Genaro Cuevas Visit Number: [id number] Discharge Date: ATTENTION: The Clinical Documentation Specialists (CDI) and [facility] Coding Staff appreciate your assistance in clarifying documentation. Please respond to the clarification below the line at the bottom and electronically sign. The CDI & [facility] Coding staff will review the response and follow-up if needed. Please note: Queries are made part of the Legal Health Record. If you have any questions, please contact the author of this message via ITS. Dr. Ricardo Juarez Cachexia is documented in your H & P 10/11 History/Risk Factors: 64-year-old male presents to the ED after his first cycle of chemotherapy for esophageal cancer with increased swelling in the legs and weakness. Other risk factors Stage 2 right buttock ulcer, nonhealing ulcer left and right lower extremities with fat layer exposed Clinical Indicators: Per Oncology consult 10/11 Cellulitis Result of persistent edema, intravascular dehydration, malignancy and poor nutrition Per Dietitian Assessment 10/11 Inadequate oral intake due to esophageal cancer and hiatal hernia. Loss of 13% UBW over four months and severe muscle wasting. Temporal muscle wasting observed. Labs: 10/10 Hgb 8.1; Plt 36, Na 133, Lactic acid 5.7, Calcium 7.4, Albumin 2.5, Procalcitonin 1.89, total protein 5.8 Current BMI: 20.0kg Nutrition intake fair with 75-100% of one meal. Treatment: Diet Regular with dysphagia level 2 ground meat Dietary Consult: 10/11 Nutrient Malnutrition specific nutrient - chronic, severe Supplements: Ensure enlive TID for added calories and protein Other: Monitor PO, Monitor weight and supplement intake In your professional opinion, can you please clarify if these findings signify one of the following conditions? * Severe Protein-Calorie Malnutrition * Other condition, please specify * Unable to determine (Last Revision: February 2019) Severe Protein-Calorie Malnutrition MTDD
[2019-10-13] MEDS: FUROSEMIDE 20 MG TAB PO SCH (09:58)
[2019-10-13] MEDS: PANTOPRAZOLE 40 MG/10 ML VIAL IVP SCH ×2 (09:58→21:37)
[2019-10-13] MEDS: METOPROLOL TARTRATE 25 MG TAB PO SCH ×2 (09:58→21:38)
--- NOTE | 2019-10-13 10:30 | P.PN ---
Subjective Progress Note Date: 10/13/19 Genaro Cuevas is a 64 yo M with PMH of esophageal cancer, HTN, HLD. He received his first cycle of chemotherapy last week and subsequently noticed some increased swelling in his legs as well as weakness. He states that he normally uses electric space heaters at home and was sitting next to his heaters and his legs were exposed. He noticed bullae develop on his bilateral distal lower extremities and they have been painful to touch and with friction. He denies any pain in his legs at rest. He otherwise complains of weakness and difficulty swallowing solid foods. In the ED his vitals were initially stable, labs showed pancytopenia with WBC 1.6k, Hgb 7.1, plt 23. Hypoalbuminemia to 2.5, procalcitonin 1.9. Lactic 5.7, multiple electrolyte derangements including calcium of 7.4 (corrected Ca 8.6). CXR no acute process. He was started on vancomycin and given IVF and subsequently developed a fib with RVR to 140s overnight, pt was started on metoprolol and his HR did improve and lactic acid normalized overnight. 10/12: Pt was found to have DVT and started on heparin. Platelets are stable but Hgb down to 6.1. He continues on IV vancomycin. Vitals stable. He denies leg pain. 10/13/2019 received 1 unit of packed RBCs yesterday for hemoglobin of 6.1, currently up to 7.1. VSS. Denies bilateral lower extremity pain. NPO, scheduled for IVC filter placement today. Afebrile. Maintained on vancomycin, WBC trending down 0.5. Preliminary blood cultures remain no growth at 48 hours. Lactic acid 1.6. Denies chest pain, palpitations or shortness of breath. Denies lightheadedness, dizziness or focal deficits. Objective - Vital Signs Vital signs: Vital Signs Temp 97.9 F 10/13/19 07:55 Pulse 78 10/13/19 07:55 Resp 20 10/13/19 07:55 BP 100/60 10/13/19 07:55 Pulse Ox 96 10/13/19 07:55 Intake & Output 10/12/19 10/13/19 10/13/19 18:59 06:59 18:59 Intake Total 1230 116.188 Output Total 1250 925 Balance -20 -808.812 Weight 65 kg Intake: Intake, IV Titration 116.188 Amount Heparin Sod,Pork in 0.45% 116.188 NaCl 25,000 unit In 0.45 % NaCl 1 250ml.bag @ 12 UNITS/KG/HR 7.44 mls/hr IV .Q[facility]H [facility] Rx#: [id number] Oral 920 Blood Product 310 Rc As-1 Unit 310 [id number] Output: Urine 1250 925 Other: Voiding Method Urinal Urinal # Voids 1 - Exam - Exam CV: Irregular, normal rate, no murmur. Peripheral pulses 1+ Abdomen: soft, nondistended, no organomegaly Lymph: no cervical or axillary LAD Neuro: alert and oriented x3, no focal deficits Skin: Bilateral LE with petichiae, multiple large bullae, some appear to have popped with drainage. Ricky wrapped. Edema improving. - Labs CBC & Chem 7: 10/13/19 05:23 10/13/19 05:23 Labs: Abnormal Lab Results - Last 24 Hours (Table) 10/11/19 10/12/19 10/12/19 Range/Units 14:53 09:53 09:53 WBC (3.8-10.6) k/uL RBC (4.30-5.90) m/uL Hgb (13.0-17.5) gm/dL Hct (39.0-53.0) % MCHC (31.0-37.0) g/dL RDW (11.5-15.5) % Plt Count (150-450) k/uL PT (9.0-12.0) sec INR (<1.2) APTT (22.0-30.0) sec Sodium 135 L (137-145) mmol/L Chloride 108 H (98-107) mmol/L Carbon Dioxide 21 L (22-30) mmol/L BUN 21 H (9-20) mg/dL Plasma Lactic Acid Mohinder 3.7 H* (0.7-2.0) mmol/L Calcium 6.4 L* (8.4-10.2) mg/dL Iron (65-175) ug/dL TIBC (228-460) ug/dL % Saturation (15.00-50.00) Ferritin (22.0-322.0) ng/mL Vitamin B12 (200.0-944.0) pg/mL Crossmatch See Detail 10/12/19 10/12/19 10/12/19 Range/Units 09:53 09:53 14:01 WBC 0.6 L* (3.8-10.6) k/uL RBC 2.06 L (4.30-5.90) m/uL Hgb 6.1 L* (13.0-17.5) gm/dL Hct 19.6 L* (39.0-53.0) % MCHC 30.9 L (31.0-37.0) g/dL RDW 16.5 H (11.5-15.5) % Plt Count 50 L D (150-450) k/uL PT 14.6 H (9.0-12.0) sec INR 1.5 H (<1.2) APTT 30.9 H (22.0-30.0) sec Sodium (137-145) mmol/L Chloride (98-107) mmol/L Carbon Dioxide (22-30) mmol/L BUN (9-20) mg/dL Plasma Lactic Acid Mohinder 5.2 H* (0.7-2.0) mmol/L Calcium (8.4-10.2) mg/dL Iron (65-175) ug/dL TIBC (228-460) ug/dL % Saturation (15.00-50.00) Ferritin (22.0-322.0) ng/mL Vitamin B12 (200.0-944.0) pg/mL Crossmatch 10/12/19 10/12/19 10/13/19 Range/Units 19:21 19:21 04:21 WBC (3.8-10.6) k/uL RBC (4.30-5.90) m/uL Hgb (13.0-17.5) gm/dL Hct (39.0-53.0) % MCHC (31.0-37.0) g/dL RDW (11.5-15.5) % Plt Count (150-450) k/uL PT (9.0-12.0) sec INR (<1.2) APTT 33.1 H (22.0-30.0) sec Sodium (137-145) mmol/L Chloride (98-107) mmol/L Carbon Dioxide (22-30) mmol/L BUN (9-20) mg/dL Plasma Lactic Acid Mohinder 3.0 H* (0.7-2.0) mmol/L Calcium (8.4-10.2) mg/dL Iron 7 L (65-175) ug/dL TIBC 162 L (228-460) ug/dL % Saturation 4.32 L (15.00-50.00) Ferritin 1619.4 H (22.0-322.0) ng/mL Vitamin B12 3298.0 H (200.0-944.0) pg/mL Crossmatch 10/13/19 10/13/19 Range/Units 05:23 05:23 WBC 0.5 L* (3.8-10.6) k/uL RBC 2.35 L (4.30-5.90) m/uL Hgb 7.1 L (13.0-17.5) gm/dL Hct 21.6 L (39.0-53.0) % MCHC (31.0-37.0) g/dL RDW 16.4 H (11.5-15.5) % Plt Count 40 L (150-450) k/uL PT (9.0-12.0) sec INR (<1.2) APTT (22.0-30.0) sec Sodium (137-145) mmol/L Chloride (98-107) mmol/L Carbon Dioxide (22-30) mmol/L BUN (9-20) mg/dL Plasma Lactic Acid Mohinder 2.1 H* (0.7-2.0) mmol/L Calcium (8.4-10.2) mg/dL Iron (65-175) ug/dL TIBC (228-460) ug/dL % Saturation (15.00-50.00) Ferritin (22.0-322.0) ng/mL Vitamin B12 (200.0-944.0) pg/mL Crossmatch Microbiology - Last 24 Hours (Table) 10/10/19 12:04 Blood Culture - Preliminary Blood No Growth after 48 hours Assessment and Plan Assessment: (1). Pulmonary embolism (2) Esophageal cancer Current Visit: Yes Status: Acute Code(s): C15.9 - MALIGNANT NEOPLASM OF ESOPHAGUS, UNSPECIFIED SNOMED Code(s): 970296875 (3) Cachexia Current Visit: Yes Status: Acute Code(s): R64 - CACHEXIA SNOMED Code(s): 184074753 (4) Malignant cachexia Current Visit: Yes Status: Acute Code(s): R64 - CACHEXIA SNOMED Code(s): 014455347 (5) Antineoplastic chemotherapy induced pancytopenia Current Visit: Yes Status: Acute Priority: High Code(s): D61.810 - ANTINEOPLASTIC CHEMOTHERAPY INDUCED PANCYTOPENIA; T45.1X5A - ADVERSE EFFECT OF ANTINEOPLASTIC AND IMMUNOSUP DRUGS, INIT SNOMED Code(s): 956318480798568 (6) Cellulitis Current Visit: Yes Status: Acute Priority: High Code(s): L03.90 - CELLULITIS, UNSPECIFIED SNOMED Code(s): 330502349 (7) Lower extremity edema Current Visit: Yes Status: Acute Priority: High Code(s): R60.0 - LOCALIZED EDEMA SNOMED Code(s): 918076502 (8) Nonhealing ulcer of left lower extremity with fat layer exposed Current Visit: Yes Status: Acute Code(s): L97.922 - NON-PRS CHR ULC UNSP PRT OF L LOW LEG W FAT LAYER EXPOSED SNOMED Code(s): 44551203 (9) Nonhealing ulcer of right lower extremity with fat layer exposed Current Visit: Yes Status: Acute Code(s): L97.912 - NON-PRS CHR ULC UNSP PRT OF R LOW LEG W FAT LAYER EXPOSED SNOMED Code(s): 47480190 (10) Hypoalbuminemia Current Visit: Yes Status: Acute Code(s): E88.09 - OTH DISORDERS OF PLASMA- PROTEIN METABOLISM, NEC SNOMED Code(s): 192861205 (11) pancytopenia, chemotherapy and infection induced (12) anemia of chronic, secondary to cancer (13) atrial fibrillation with RVR, new onset Plan: Continue current medication regime ,monitoring and symptomatic treatment. Close monitoring of hemoglobin and platelets, transfuse if hemoglobin less than 7 and platelets less than 50,000 as per oncology. Maintain vancomycin. Continue with local wound care with medi honey. The impression and plan of care has been dictated as directed. : I performed a history and examination of this patient, discussed the same with the dictator. I agree with the dictator's note ,documented as a scribe. Any additional findings or plans will be noted.
[2019-10-13] MEDS: FILGRASTIM-SNDZ 300 MCG/0.5 ML SYRINGE SQ SCH (11:48)
[2019-10-13] MEDS ORDERED: SODIUM CHLORIDE 0.9% 500 ML 500 ML IV ONE (13:00)
[2019-10-13] MEDS: MIDAZOLAM 2 MG/2 ML VIAL IVP ONE ×2 (13:04→13:30)
[2019-10-13] MEDS: fentaNYL (PF) 50 MCG/ML 2 ML AMP IVP ONE ×2 (13:04→13:30)
[2019-10-13] MEDS ORDERED: LIDOCAINE 1% INJ 10MG/ML (20 ML MDV) SQ ONE (13:06)
[2019-10-13] MEDS ORDERED: IOPAMIDOL-250 100ML BTL IV ONE (13:35)
--- NOTE | 2019-10-13 14:17 | IR ---
Fluoroscopy HISTORY: Pulmonary embolism 7.5 minutes fluoroscopy time supplied to the referring clinician. 560 intraoperative C-arm images do cument the procedure. See dictated report from vascular surgery.
[2019-10-13 15:17] LABS: African American GFR (CKD) >90 (>60 ml/min/1.73 sqM); Anion Gap 4 mmol/L; Blood Urea Nitrogen 17 mg/dL (9-20); Carbon Dioxide 21 mmol/L (22-30); Chloride 109 mmol/L (98-107); Glucose 69 mg/dL (74-99); Non-African American GFR(CKD) >90 (>60 ml/min/1.73 sqM); Potassium 3.4 mmol/L (3.5-5.1); Sodium 134 mmol/L (137-145)
[2019-10-13 15:26] LABS: Calcium 6.4 mg/dL (8.4-10.2)
--- NOTE | 2019-10-13 15:43 | PN ---
PROGRESS NOTE Patient is seen for followup for acute kidney injury and mild volume overload. The patient has significant bilateral feet and leg ulcers for which he is maintained on antibiotics. He has had lower extremity edema as well. UA showed 1+ protein and urine protein creatinine ratio was ordered yesterday. I started the patient on a small dose of oral Lasix yesterday. His creatinine is at 0.69 mg/dL. EXAMINATION: Today blood pressure was 100/60, heart rate 78 per minute, patient is afebrile. Examination of the heart S1, S2. Examination of the lungs, decreased breath sounds at bases. Abdomen is soft, nontender. Examination of lower extremities shows bilateral feet to be wrapped. INVESTIGATIVE ANALYST exam grossly intact. LABS: Show sodium of 135 yesterday, potassium 4.3, and creatinine is 0.69. Urine protein creatinine ratio is pending. ASSESSMENT: 1. Continue current dose of Lasix. Follow up on urine protein creatinine ratio. I doubt underlying nephrotic range proteinuria to be contributing to his edema. An echocardiogram for ejection fraction is not available at this time. The patient is being followed by Cardiology for atrial fibrillation. 2. Atrial fibrillation with rapid ventricular response, currently with controlled ventricular response. 3. Metastatic esophageal cancer. 4. Anemia, multifactorial. PLAN: Continue current dose of Lasix. Follow up on urine protein creatinine ratio. Check BMP in a.m. MMODL / IJN: [id number] /
[2019-10-13] MEDS: MORPHINE SULFATE 4 MG/ML SYRINGE IVP PRN (16:30)
--- NOTE | 2019-10-13 17:34 | PN ---
PROGRESS NOTE REASON FOR FOLLOW UP: Bilateral lower extremity cellulitis and . INTERVAL HISTORY: The patient is currently afebrile, has been complaining of pain to his bilateral hip area. Denies any chest pain or shortness of breath or cough. No abdominal pain. No diarrhea. PHYSICAL EXAMINATION: Blood pressure 111/50 with a pulse of 75. Temperature 98.5. He is 100% on room air. General description is a middle aged male lying in bed in no distress. Respiratory system unlabored breathing. Clear to auscultation anteriorly. Heart: S1, S2 regular rate and rhythm. Abdomen soft, no tenderness. Right lower extremity wrapped up. Unfortunately wraps could not be taken off as the patient was going for upper extremity. LABS: Hemoglobin is 10.1. White count 0.5. Lactic acid 1.6. DIAGNOSTIC IMPRESSION AND PLAN: Patient with bilateral lower extremity swelling with blisters and possible component of cellulitis. The patient covered with vancomycin. We will monitor clinical course. evaluate the wounds tomorrow. Continue supportive care. MMODL / IJN: [id number] /
--- NOTE | 2019-10-13 20:13 | OP ---
OPERATIVE REPORT PREOPERATIVE DIAGNOSIS: Pulmonary embolism, low platelet count, carcinoma of esophagus. PROCEDURES: 1. Inferior vena cavagram. 2. Placement of a tulip filter. 3. Completion vena cavagram. SEDATION TIME: 25 minutes. PROCEDURE DESCRIPTION: This patient has history of carcinoma of the esophagus and the patient is on chemo. The patient has also developed a pulmonary embolism and the patient's platelet count is low. The patient has been given platelets. I was consulted for placement of the filter by Oncology. The patient was brought to the photographic laboratory technician. Right groin was prepped and drapes were applied in the usual sterile manner. Micropuncture was introduced in the right femoral vein under ultrasound guidance and local anesthesia. Micropuncture guidewire was passed and a 4 Belgian dilator was advanced on top of the guidewire. Then we placed a guidewire and we exchanged it for a 5-Belgian sheath. Then we placed a pigtail catheter on the top of the guidewire. Through the pigtail we did the power injector inferior vena cavagram and renal vein was visualized. After that we placed a sheath on the top of the guidewire and sheath was parked at the renal vein. Then we applied the filter below the renal vein and completion fistulogram showed decent position. Patient tolerated the procedure well. MMODL / IJN: [id number] /
[2019-10-14] MEDS: VANCOMYCIN 1,250 MG in SODIUM CHLORIDE 0.9% 250 ML IVPB SCH ×2 (06:25→18:33)
[2019-10-14 06:59] LABS: Anisocytosis Slight; Basophils % (A) 0 %; Eosinophils % (A) 2 %; HCT 25.2 % (39.0-53.0); HGB 7.9 gm/dL (13.0-17.5); Hypochromasia Slight; Lymphocytes # (A) 0.2 k/uL (1.0-4.8); Lymphocytes % (A) 20 %; MCH 29.4 pg (25.0-35.0); MCHC 31.5 g/dL (31.0-37.0); MCV 93.6 fL (80.0-100.0); Mean Platelet Volume 11.1; Monocytes # (A) 0.1 k/uL (0-1.0); Monocytes % (A) 12 %; Neutrophils # (A) 0.7 k/uL (1.3-7.7); Neutrophils % (A) 58 %; RDW 17.5 % (11.5-15.5)
[2019-10-14 07:00] LABS: WBC 1.1 k/uL (3.8-10.6)
[2019-10-14 07:08] LABS: African American GFR (CKD) >90 (>60 ml/min/1.73 sqM); Non-African American GFR(CKD) >90 (>60 ml/min/1.73 sqM)
[2019-10-14] MEDS: HEPARIN SOD,PORK IN 0.45% NACL 25,000 UNIT in 0.45% NACL 1 250ML.BAG IV SCH (08:45)
--- NOTE | 2019-10-14 11:37 | P.PN ---
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 He is on gentle diuresis because of the edema. His edema is deemed to be from hypoalbuminemia as well as from possible DVT. He has been diagnosed with PE and underwent insertion off IVC filter yesterday 10/13/2019 and had a CTA on 10/11/2019. There is no evidence of ATN creatinine is stable yesterday on 10/13/2019 at today at 0.7. Urine output 2175 for the last 24 hours. He denies any nausea vomiting actually a good appetite is somewhat upset because his breakfast was not given to him and he had ordered because of the nothing by mouth status from yesterday no nausea vomiting. No chest pain shortness of breath no cough. Objective - Vital Signs Vital signs: Vital Signs Temp 97.8 F 10/13/19 20:05 Pulse 88 10/14/19 04:00 Resp 16 10/14/19 04:00 BP 104/64 10/13/19 20:05 Pulse Ox 100 10/13/19 17:13 Intake & Output 10/13/19 10/14/19 10/14/19 18:59 06:59 18:59 Intake Total 500 1000 Output Total 1250 Balance 500 -250 Weight 65 kg 64.5 kg Intake: IV 250 Intake, IV Titration 250 250 Amount Vancomycin 1,250 mg In 250 250 Sodium Chloride 0.9% 250 ml @ 125 mls/hr IVPB Q12H [facility] Rx#:[id number] Oral 750 Output: Urine 1250 Other: Voiding Method Urinal Urinal # Voids 1 On examination he is emaciated but awake alert oriented comfortable. HEENT exam no JVP neck supple no facial asymmetry Lungs are clear to auscultation fair air entry bilaterally Heart sounds are unremarkable for any murmur rub gallop abdomen soft nontender extremity exam was no edema Neurologically awake alert oriented but profoundly weak - Labs CBC & Chem 7: 10/14/19 06:13 10/14/19 06:13 Labs: Abnormal Lab Results - Last 24 Hours (Table) 10/13/19 10/14/19 Range/Units 05:23 06:13 WBC 1.1 L* (3.8-10.6) k/uL RBC 2.70 L (4.30-5.90) m/uL Hgb 7.9 L (13.0-17.5) gm/dL Hct 25.2 L (39.0-53.0) % RDW 17.5 H (11.5-15.5) % Plt Count 61 L D (150-450) k/uL Neutrophils # 0.7 L (1.3-7.7) k/uL Lymphocytes # 0.2 L (1.0-4.8) k/uL Sodium 134 L (137-145) mmol/L Potassium 3.4 L (3.5-5.1) mmol/L Chloride 109 H (98-107) mmol/L Carbon Dioxide 21 L (22-30) mmol/L Glucose 69 L (74-99) mg/dL Calcium 6.4 L* (8.4-10.2) mg/dL Microbiology - Last 24 Hours (Table) 10/10/19 12:04 Blood Culture - Preliminary Blood No Growth after 72 hours Assessment and Plan Assessment: Impression 1. Hyponatremia secondary to intravascular volume depletion and prerenal state with high ADH. 2. Hypokalemia secondary to diuretics. 3. Edema secondary to hypoalbuminemia and possible DVT. 3. CT confirms pulmonary embolism. Status post IVC filter placement yesterday 10/13/2019 4. Thrombocytopenia leg count has improved from 23,000-61,000 partly chemotherapy related 5. Patient is on vancomycin trough level is 17.4 dated 10/20/2019. Watch for renal dysfunction Recommendation 1. Maintain Lasix to reduce the edema but watch potassium, sodium, creatinine and urine output as diuresis might cause significant intravascular volume depletion. 2. Possible check orthostatic changes and see if there is significant drop and if so will stop the Lasix
[2019-10-14 12:03] LABS: Glucose,Whole Blood 183 mg/dL (75-99)
[2019-10-14 12:42] LABS: Platelet Count 61 k/uL (150-450)
[2019-10-14] MEDS: PANTOPRAZOLE 40 MG/10 ML VIAL IVP SCH ×2 (13:45→21:33)
[2019-10-14] MEDS: FUROSEMIDE 20 MG TAB PO SCH (13:45)
[2019-10-14] MEDS: METOPROLOL TARTRATE 25 MG TAB PO SCH ×2 (13:46→21:33)
[2019-10-14] MEDS: MORPHINE SULFATE 4 MG/ML SYRINGE IVP PRN ×2 (13:48→18:32)
--- NOTE | 2019-10-14 13:55 | P.PN ---
Subjective Progress Note Date: 10/13/19 The patient is status post IVC filter placement. At the time of evaluation he was sleeping but arousable. Lower extremity discomfort is better controlled. He denied any diarrhea. He feels hungry and wants to eat. No fever/chills/nausea/vomiting/obvious bleeding Objective - Vital Signs Vital signs: Vital Signs Temp 97.8 F 10/13/19 20:05 Pulse 88 10/14/19 04:00 Resp 16 10/14/19 04:00 BP 104/64 10/13/19 20:05 Pulse Ox 100 10/13/19 17:13 Intake & Output 10/13/19 10/14/19 10/14/19 18:59 06:59 18:59 Intake Total 500 1000 Output Total 1250 Balance 500 -250 Weight 65 kg 64.5 kg Intake: IV 250 Intake, IV Titration 250 250 Amount Vancomycin 1,250 mg In 250 250 Sodium Chloride 0.9% 250 ml @ 125 mls/hr IVPB Q12H [facility] Rx#:[id number] Oral 750 Output: Urine 1250 Other: Voiding Method Urinal Urinal # Voids 1 - Constitutional General appearance: Present: no acute distress - EENT EENT Comment(s): Poor dentition Eyes: Present: EOMI - Respiratory Respiratory: bilateral: CTA - Cardiovascular Rhythm: irregularly irregular Heart sounds: normal: S1, S2 - Gastrointestinal General gastrointestinal: Present: normal bowel sounds, soft - Integumentary Integumentary Comment(s): B/l LE bandaged below knee Integumentary: Present: ulcer - Neurologic Neurologic: Present: CNII-XII intact - Musculoskeletal Musculoskeletal: Present: generalized weakness, strength equal bilaterally - Psychiatric Psychiatric: Present: A&O x's 3, appropriate affect - Labs CBC & Chem 7: 10/14/19 06:13 10/14/19 06:13 Labs: Abnormal Lab Results - Last 24 Hours (Table) 10/13/19 10/14/19 10/14/19 Range/Units 05:23 06:13 11:59 WBC 1.1 L* (3.8-10.6) k/uL RBC 2.70 L (4.30-5.90) m/uL Hgb 7.9 L (13.0-17.5) gm/dL Hct 25.2 L (39.0-53.0) % RDW 17.5 H (11.5-15.5) % Plt Count 61 L D (150-450) k/uL Neutrophils # 0.7 L (1.3-7.7) k/uL Lymphocytes # 0.2 L (1.0-4.8) k/uL Sodium 134 L (137-145) mmol/L Potassium 3.4 L (3.5-5.1) mmol/L Chloride 109 H (98-107) mmol/L Carbon Dioxide 21 L (22-30) mmol/L Glucose 69 L (74-99) mg/dL POC Glucose (mg/dL) 183 H (75-99) mg/dL Calcium 6.4 L* (8.4-10.2) mg/dL Microbiology - Last 24 Hours (Table) 10/10/19 12:04 Blood Culture - Preliminary Blood No Growth after 72 hours Assessment and Plan (1) Pulmonary embolism Narrative/Plan: Case discussed with vascular surgery. It was recommended that the patient have an IVC filter, as he developed significant, cytopenia with just the first cycle of chemotherapy and it was felt that it would be difficult to maintain a safe platelet count for him going forward, to allow regular anticoagulation. He is status post IVC filter placement which he tolerated well. At this time it is recommended that the patient stop anticoagulation , now that the filter has been placed. We can reconsider putting him back on anticoagulation if his platelet count is more stable in the future. Current Visit: Yes Status: Acute Priority: High Code(s): I26.99 - OTHER PULMONARY EMBOLISM WITHOUT ACUTE COR PULMONALE SNOMED Code(s): 76941601 (2) Antineoplastic chemotherapy induced pancytopenia Narrative/Plan: Continue G-CSF. Hemoglobin is 7.1. Continue to monitor and transfuse for hemoglobin less than 7. As we are holding anticoagulation, there is no need to transfuse platelets unless they are below 10,000, or if the patient is actively bleeding with platelet count of less than 40,000 Current Visit: Yes Status: Acute Priority: High Code(s): D61.810 - ANTINEOPLASTIC CHEMOTHERAPY INDUCED PANCYTOPENIA; T45.1X5A - ADVERSE EFFECT OF ANTINEOPLASTIC AND IMMUNOSUP DRUGS, INIT SNOMED Code(s): 610972231331805 (3) Anemia aplastic aregenerative Narrative/Plan: The patient's pattern of hemoglobin , and prior as well as current iron studies were reviewed. These do NOT indicate evidence of bleeding, but rather hypoproliferative anemia due to malignancy, and now chemotherapy. Continue to monitor and transfuse as needed Current Visit: No Status: Acute Priority: High Code(s): D61.9 - APLASTIC ANEMIA, UNSPECIFIED SNOMED Code(s): 99733859 (4) Esophageal cancer Narrative/Plan: The patient has known extensive metastatic disease. He is status post 1 cycle of FOLFOX. Chemotherapy is on hold until acute situation improves sufficiently Current Visit: Yes Status: Acute Code(s): C15.9 - MALIGNANT NEOPLASM OF ESOPHAGUS, UNSPECIFIED SNOMED Code(s): 551344171 Plan: Defer to nephrology and ID/wound care for treatment of his lower extremity edema and resultant ulcers
[2019-10-14] MEDS: FILGRASTIM-SNDZ 300 MCG/0.5 ML SYRINGE SQ SCH (16:49)
--- NOTE | 2019-10-14 16:54 | P.PN ---
Subjective Progress Note Date: 10/14/19 Principal diagnosis: Pulmonary embolism/ DVT A. fib with RVR Pancytopenia Cellulitis bilateral lower extremities/ left lower extremity ulcer Patient is admitted with lower extremity DVT and PE; patient also has cytopenia with first cycle of chemotherapy and sit was felt it would be difficult to maintain patient on oral anticoagulation therapy; IVC filter was recommended; patient is status post IVC filter placement 10/14/2019 Patient is seen and evaluated in room at bedside; patient reports that he has not been getting lower extremity dressing changes as recommended Vital signs remain stable with a temperature of 97.8, pulse 88, respirations 16 and blood pressure of 104/64 Lab review shows a white blood count of 1.1, hemoglobin of 79 and platelet count of 61 Patient remains on IV antibiotics in form of vancomycin for lower extremity cellulitis and ulcers; nephrology is following for hypokalemia and hyponatremia Objective - Vital Signs Vital signs: Vital Signs Temp 97.8 F 10/13/19 20:05 Pulse 88 10/14/19 04:00 Resp 16 10/14/19 04:00 BP 104/64 10/13/19 20:05 Pulse Ox 100 10/13/19 17:13 Intake & Output 10/13/19 10/14/19 10/14/19 18:59 06:59 18:59 Intake Total 500 1000 Output Total 1250 Balance 500 -250 Weight 65 kg 64.5 kg Intake: IV 250 Intake, IV Titration 250 250 Amount Vancomycin 1,250 mg In 250 250 Sodium Chloride 0.9% 250 ml @ 125 mls/hr IVPB Q12H [facility] Rx#:[id number] Oral 750 Output: Urine 1250 Other: Voiding Method Urinal Urinal # Voids 1 - Exam PHYSICAL EXAMINATION: GENERAL: The patient is alert and oriented x3, not in any acute distress. Well developed, well nourished. HEENT: Pupils are round and equally reacting to light. EOMI. No scleral icterus. No conjunctival pallor. Normocephalic, atraumatic. No pharyngeal erythema. No thyromegaly. CARDIOVASCULAR: S1 and S2 present. No murmurs, rubs, or gallops. PULMONARY: Chest is clear to auscultation, no wheezing or crackles. ABDOMEN: Soft, nontender, nondistended, normoactive bowel sounds. No palpable organomegaly. MUSCULOSKELETAL: No joint swelling or deformity. EXTREMITIES: No cyanosis, clubbing, or pedal edema. NEUROLOGICAL: Gross neurological examination did not reveal any focal deficits. SKIN: No rashes. - Labs CBC & Chem 7: 10/14/19 06:13 10/14/19 06:13 Labs: Abnormal Lab Results - Last 24 Hours (Table) 10/13/19 10/14/19 10/14/19 Range/Units 05:23 06:13 11:59 WBC 1.1 L* (3.8-10.6) k/uL RBC 2.70 L (4.30-5.90) m/uL Hgb 7.9 L (13.0-17.5) gm/dL Hct 25.2 L (39.0-53.0) % RDW 17.5 H (11.5-15.5) % Plt Count 61 L D (150-450) k/uL Neutrophils # 0.7 L (1.3-7.7) k/uL Lymphocytes # 0.2 L (1.0-4.8) k/uL Sodium 134 L (137-145) mmol/L Potassium 3.4 L (3.5-5.1) mmol/L Chloride 109 H (98-107) mmol/L Carbon Dioxide 21 L (22-30) mmol/L Glucose 69 L (74-99) mg/dL POC Glucose (mg/dL) 183 H (75-99) mg/dL Calcium 6.4 L* (8.4-10.2) mg/dL Microbiology - Last 24 Hours (Table) 10/10/19 12:04 Blood Culture - Preliminary Blood No Growth after 72 hours Assessment and Plan Assessment: 1. Pulmonary embolism; patient is status post IVC filter placement 2. Chemotherapy-induced pancytopenia; hematology is following and recommending to continue to monitor closely and transfuse if hemoglobin is less than 7 and platelets are below 10,000 or patient is actively bleeding with platelet count less than 40,000 3. Atrial fibrillation with RVR; persistent with controlled ventricular response,; cardiology is following peripherally 4. Cellulitis with chronic lower extremity nonhealing wound; continue with IV antibiotics; ID is on board; wound care is consulted 5. Esophageal cancer with extensive metastases; oncology's following and chemotherapy remains on hold till patient is clinically stable CODE STATUS; full code
--- NOTE | 2019-10-14 17:07 | PN ---
PROGRESS NOTE DATE OF SERVICE: 10/14/2019 REASON FOR FOLLOWUP: Bilateral leg blisters with cellulitis. INTERVAL HISTORY: The patient is currently afebrile, has been breathing comfortably. The patient denies having any pain to the leg except a small area below the right knee where a blister has popped open and is painful. The patient denies having any chest pain or shortness of breath or cough and no diarrhea. PHYSICAL EXAMINATION: Blood pressure 104/64 with a pulse of 88, temperature 97.8. He is 100% on room air. General description is a middle-aged male lying in bed in no distress. RESPIRATORY SYSTEM: Unlabored breathing. Clear to auscultation anteriorly. HEART: S1, S2. Regular rate and rhythm. ABDOMEN: Soft. No tenderness. BILATERAL LOWER EXTREMITIES: The redness has improved. The right leg blister has dried out. Left leg on the lateral portion, especially on the foot, still has a blister with some fluid. LABS: Hemoglobin 7.9, white count 1.1, creatinine 0.81. DIAGNOSTIC IMPRESSION AND PLAN: Patient with bilateral lower extremity blisters with secondary cellulitis. Patient is currently covered with vancomycin; will finish therapy with a short course of oral antibiotics. Local care to continue with ABD to the blister area and a light Ricky wrap. The patient had multiple questions. Those were answered in layman's terms. MMODL / IJN: [id number] /
[2019-10-14 17:16] LABS: Glucose,Whole Blood 113 mg/dL (75-99)
[2019-10-15] MEDS: VANCOMYCIN 1,250 MG in SODIUM CHLORIDE 0.9% 250 ML IVPB SCH ×2 (05:12→18:03)
[2019-10-15 06:26] LABS: African American GFR (CKD) >90 (>60 ml/min/1.73 sqM); Anion Gap 6 mmol/L; Blood Urea Nitrogen 13 mg/dL (9-20); Calcium 6.6 mg/dL (8.4-10.2); Carbon Dioxide 19 mmol/L (22-30); Chloride 109 mmol/L (98-107); Glucose 97 mg/dL (74-99); Non-African American GFR(CKD) >90 (>60 ml/min/1.73 sqM); Potassium 3.4 mmol/L (3.5-5.1); Sodium 134 mmol/L (137-145)
[2019-10-15 07:08] LABS: Anisocytosis Slight; Basophils % (A) 0 %; Eosinophils % (A) 1 %; HCT 22.7 % (39.0-53.0); HGB 7.7 gm/dL (13.0-17.5); Hypochromasia Slight; Lymphocytes # (A) 0.3 k/uL (1.0-4.8); Lymphocytes % (A) 6 %; MCH 31.8 pg (25.0-35.0); MCV 93.5 fL (80.0-100.0); Mean Platelet Volume 11.7; Monocytes # (A) 0.4 k/uL (0-1.0); Monocytes % (A) 9 %; Neutrophils # (A) 3.6 k/uL (1.3-7.7); Neutrophils % (A) 83 %; Platelet Count 60 k/uL (150-450); RBC 2.43 m/uL (4.30-5.90); RDW 17.6 % (11.5-15.5); WBC 4.4 k/uL (3.8-10.6)
[2019-10-15] MEDS: FUROSEMIDE 20 MG TAB PO SCH (09:33)
[2019-10-15] MEDS: METOPROLOL TARTRATE 25 MG TAB PO SCH ×2 (09:33→20:58)
[2019-10-15] MEDS: PANTOPRAZOLE 40 MG/10 ML VIAL IVP SCH ×2 (09:34→20:58)
[2019-10-15] MEDS ORDERED: POTASSIUM CHLORIDE ER 20 MEQ TAB.ER PO STA (10:26)
--- NOTE | 2019-10-15 10:48 | P.PN ---
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 He is on gentle diuresis because of the edema. His edema is deemed to be from hypoalbuminemia as well as from possible DVT. He has been diagnosed with PE and underwent insertion off IVC filter yesterday 10/13/2019 and had a CTA on 10/11/2019. There is no evidence of ATN, creatinine is stable today at 0.7. Urine output 800 mL He denies any nausea vomiting actually a good appetite is somewhat upset because his breakfast was not given to him and he had ordered because of the nothing by mouth status from yesterday no nausea vomiting. No chest pain shortness of breath no cough. Objective - Vital Signs Vital signs: Vital Signs Temp 98.2 F 10/14/19 20:00 Pulse 106 H 10/15/19 04:00 Resp 18 10/15/19 04:00 BP 102/64 10/15/19 04:00 Pulse Ox 95 10/15/19 04:00 Intake & Output 10/14/19 10/15/19 10/15/19 18:59 06:59 18:59 Intake Total 240 Output Total 450 350 425 Balance -450 -350 -185 Weight 67 kg Intake: Oral 240 Output: Urine 450 350 425 Other: Voiding Method Urinal Urinal # Voids 2 On examination he is emaciated but awake alert oriented comfortable. HEENT exam no JVP neck supple no facial asymmetry Lungs are clear to auscultation fair air entry bilaterally Heart sounds are unremarkable for any murmur rub gallop abdomen soft nontender extremity exam was no edema Neurologically awake alert oriented but profoundly weak - Labs CBC & Chem 7: 10/15/19 06:00 10/15/19 06:00 Labs: Abnormal Lab Results - Last 24 Hours (Table) 10/14/19 10/14/19 10/14/19 Range/Units 06:13 11:59 17:12 WBC 1.1 L* (3.8-10.6) k/uL RBC 2.70 L (4.30-5.90) m/uL Hgb 7.9 L (13.0-17.5) gm/dL Hct 25.2 L (39.0-53.0) % RDW 17.5 H (11.5-15.5) % Plt Count 61 L D (150-450) k/uL Neutrophils # 0.7 L (1.3-7.7) k/uL Lymphocytes # 0.2 L (1.0-4.8) k/uL Sodium (137-145) mmol/L Potassium (3.5-5.1) mmol/L Chloride (98-107) mmol/L Carbon Dioxide (22-30) mmol/L POC Glucose (mg/dL) 183 H 113 H (75-99) mg/dL Calcium (8.4-10.2) mg/dL 10/15/19 10/15/19 Range/Units 06:00 06:00 WBC (3.8-10.6) k/uL RBC 2.43 L (4.30-5.90) m/uL Hgb 7.7 L (13.0-17.5) gm/dL Hct 22.7 L (39.0-53.0) % RDW 17.6 H (11.5-15.5) % Plt Count 60 L (150-450) k/uL Neutrophils # (1.3-7.7) k/uL Lymphocytes # 0.3 L (1.0-4.8) k/uL Sodium 134 L (137-145) mmol/L Potassium 3.4 L (3.5-5.1) mmol/L Chloride 109 H (98-107) mmol/L Carbon Dioxide 19 L (22-30) mmol/L POC Glucose (mg/dL) (75-99) mg/dL Calcium 6.6 L (8.4-10.2) mg/dL Microbiology - Last 24 Hours (Table) 10/10/19 12:04 Blood Culture - Preliminary Blood No Growth after 96 hours Assessment and Plan Assessment: Impression 1. Hyponatremia secondary to intravascular volume depletion and prerenal state with high ADH. Sodium is 134, has gone down slowly from 136 2. Hypokalemia secondary to diuretics. Potassium is 3.4 3. Mild degree of non-gap acidosis bicarb is 19 and gap is 6 secondary to GI losses 4. Edema secondary to hypoalbuminemia and possible DVT. 3. CT confirms pulmonary embolism. Status post IVC filter placement yesterday 10/13/2019 4. Thrombocytopenia leg count has improved from 23,000-61,000 partly chemotherapy related 5. Patient is on vancomycin trough level is 17.4 dated 10/20/2019. Watch for renal dysfunction Recommendation 1. Reduce Lasix as sodium is going down. He is on 20 mg of Lasix, will reduce it to 20 every other day. 2. Start sodium bicarb 650 twice a day 3. Patient can be discharged as follows nephrology is concerned 4. Replace potassium 40 mEq by mouth
[2019-10-15] MEDS: SODIUM BICARBONATE TAB 650 MG TAB PO SCH ×2 (12:37→20:58)
[2019-10-15] MEDS: MORPHINE SULFATE 4 MG/ML SYRINGE IVP PRN (14:57)
[2019-10-15] MEDS: FILGRASTIM-SNDZ 300 MCG/0.5 ML SYRINGE SQ SCH (15:02)
--- NOTE | 2019-10-15 15:41 | P.PN ---
Subjective Progress Note Date: 10/15/19 Principal diagnosis: Pulmonary embolism/ DVT A. fib with RVR Pancytopenia Cellulitis bilateral lower extremities/ left lower extremity ulcer Patient is admitted with lower extremity DVT and PE; patient also has cytopenia with first cycle of chemotherapy and sit was felt it would be difficult to maintain patient on oral anticoagulation therapy; IVC filter was recommended; patient is status post IVC filter placement 10/14/2019 Patient is seen and evaluated in room at bedside; patient reports that he has not been getting lower extremity dressing changes as recommended Vital signs remain stable with a temperature of 97.8, pulse 88, respirations 16 and blood pressure of 104/64 Lab review shows a white blood count of 1.1, hemoglobin of 79 and platelet count of 61 Patient remains on IV antibiotics in form of vancomycin for lower extremity cellulitis and ulcers; nephrology is following for hypokalemia and hyponatremia 10/15/2019 Patient is seen and evaluated resting comfortably in bed; was is no complaints of chest pain or shortness of breath at this time; was upset earlier in the day before breakfast Nephrology is following him because of edema, hypokalemia hyponatremia. He is on gentle diuresis because of the edema. His edema is deemed to be from hypoalbuminemia as well as from possible DVT. He has been diagnosed with PE and underwent insertion off IVC filter yesterday 10/13/2019 and had a CTA on 10/11/2019. There is no evidence of ATN, creatinine is stable today at 0.7. Urine output 800 mL Labs are somewhat stable with a hemoglobin of 7.7 and platelet count of 60; no signs of overt bleeding; potassium is down to 3.4 which will be supplemented with 20 mg of oral potassium Patient has been recommended skilled rehab by physical therapy service; patient relates that he would want to be discharged home and will discuss discharge planning with PCP Dr. Juarez Objective - Vital Signs Vital signs: Vital Signs Temp 98.9 F 10/15/19 08:40 Pulse 93 10/15/19 08:40 Resp 18 10/15/19 08:40 BP 88/41 10/15/19 08:40 Pulse Ox 99 10/15/19 08:40 Intake & Output 10/14/19 10/15/19 10/15/19 18:59 06:59 18:59 Intake Total 240 Output Total 450 350 425 Balance -450 -350 -185 Weight 67 kg Intake: Oral 240 Output: Urine 450 350 425 Other: Voiding Method Urinal Urinal Urinal # Voids 2 - Exam PHYSICAL EXAMINATION: GENERAL: The patient is alert and oriented x3, not in any acute distress. Well developed, well nourished. HEENT: Pupils are round and equally reacting to light. EOMI. No scleral icterus. No conjunctival pallor. Normocephalic, atraumatic. No pharyngeal erythema. No thyromegaly. CARDIOVASCULAR: S1 and S2 present. No murmurs, rubs, or gallops. PULMONARY: Chest is clear to auscultation, no wheezing or crackles. ABDOMEN: Soft, nontender, nondistended, normoactive bowel sounds. No palpable organomegaly. MUSCULOSKELETAL: No joint swelling or deformity. EXTREMITIES: No cyanosis, clubbing, or pedal edema. NEUROLOGICAL: Gross neurological examination did not reveal any focal deficits. SKIN: No rashes. - Labs CBC & Chem 7: 10/15/19 06:00 10/15/19 06:00 Labs: Abnormal Lab Results - Last 24 Hours (Table) 10/14/19 10/15/19 10/15/19 Range/Units 17:12 06:00 06:00 RBC 2.43 L (4.30-5.90) m/uL Hgb 7.7 L (13.0-17.5) gm/dL Hct 22.7 L (39.0-53.0) % RDW 17.6 H (11.5-15.5) % Plt Count 60 L (150-450) k/uL Lymphocytes # 0.3 L (1.0-4.8) k/uL Sodium 134 L (137-145) mmol/L Potassium 3.4 L (3.5-5.1) mmol/L Chloride 109 H (98-107) mmol/L Carbon Dioxide 19 L (22-30) mmol/L POC Glucose (mg/dL) 113 H (75-99) mg/dL Calcium 6.6 L (8.4-10.2) mg/dL Microbiology - Last 24 Hours (Table) 10/10/19 12:04 Blood Culture - Preliminary Blood No Growth after 96 hours Assessment and Plan Assessment: 1. Pulmonary embolism; patient is status post IVC filter placement 2. Chemotherapy-induced pancytopenia; hematology is following and recommending to continue to monitor closely and transfuse if hemoglobin is less than 7 and platelets are below 10,000 or patient is actively bleeding with platelet count less than 40,000 3. Atrial fibrillation with RVR; persistent with controlled ventricular response,; cardiology is following peripherally 4. Cellulitis with chronic lower extremity nonhealing wound; continue with IV antibiotics; ID is on board; wound care is consulted 5. Esophageal cancer with extensive metastases; oncology's following and chemot herapy remains on hold till patient is clinically stable CODE STATUS; full code
--- NOTE | 2019-10-15 16:54 | PN ---
PROGRESS NOTE DATE OF SERVICE: 10/15/2019 REASON FOR FOLLOWUP: Bilateral lower extremity blisters with cellulitis. INTERVAL HISTORY: The patient is currently afebrile, has been breathing comfortably. Denies having any chest pain, no shortness of breath or cough. No nausea, vomiting, abdominal pain, or pain in the legs. PHYSICAL EXAMINATION: Blood pressure 102/64 with a pulse of 103, temperature 98. He is 95% on room air. General description is an elderly male lying in bed in no distress. Respiratory system: Unlabored breathing. Clear to auscultation anteriorly. Heart S1, S2. Regular rate and rhythm. Abdomen soft, no tenderness. Right leg currently wrapped up. No obvious drainage on the dressing. LABS: Hemoglobin 7.7, with white count 4.4, BUN of 13, creatinine 0.78. Blood culture has been negative. DIAGNOSTIC IMPRESSION AND PLAN: Patient with bilateral lower extremity blisters and cellulitis. Patient has shown clinical improvement and the redness has improved. He is currently on vancomycin, will transition to a course of oral . Local to continue with ABD pads to the blister area and Ricky for light compression. Continue supportive care. MMODL / IJN: [id number] /
--- NOTE | 2019-10-15 18:44 | XR ---
EXAMINATION TYPE: XR chest 1V portable DATE OF EXAM: 10/15/2019 COMPARISON: 10/10/2019 HISTORY: Aspiration pneumonia. Short of breath TECHNIQUE: FINDINGS: There is some airspace infiltrate right lower lobe. Left lung is fairly clear. Heart size i s normal. There is no heart failure. There are chest leads. IMPRESSION: There is new right lower lobe infiltrate compared to last exam. This could relate to aspi ration pneumonia.
[2019-10-16] MEDS: MORPHINE SULFATE 4 MG/ML SYRINGE IVP PRN (03:42)
[2019-10-16] MEDS ORDERED: VANCOMYCIN TROUGH DUE 1 EACH MISC MISCELLANE ONE (05:00)
[2019-10-16 05:19] LABS: Anisocytosis Slight; Basophils % (A) 0 %; Eosinophils % (A) 0 %; HCT 23.3 % (39.0-53.0); HGB 7.4 gm/dL (13.0-17.5); Hypochromasia Moderate; Lymphocytes # (A) 0.5 k/uL (1.0-4.8); Lymphocytes % (A) 3 %; MCH 29.8 pg (25.0-35.0); MCHC 31.6 g/dL (31.0-37.0); MCV 94.4 fL (80.0-100.0); Macrocytosis Slight; Mean Platelet Volume 11.4; Monocytes # (A) 0.7 k/uL (0-1.0); Monocytes % (A) 5 %; Neutrophils # (A) 13.7 k/uL (1.3-7.7); Neutrophils % (A) 90 %; Poikilocytosis Slight; RBC 2.47 m/uL (4.30-5.90); RDW 17.9 % (11.5-15.5); WBC 15.2 k/uL (3.8-10.6)
[2019-10-16 05:23] LABS: Platelet Count 89 k/uL (150-450)
[2019-10-16 05:30] LABS: African American GFR (CKD) >90 (>60 ml/min/1.73 sqM); Anion Gap 3 mmol/L; Blood Urea Nitrogen 13 mg/dL (9-20); Calcium 7.2 mg/dL (8.4-10.2); Carbon Dioxide 24 mmol/L (22-30); Chloride 108 mmol/L (98-107); Glucose 73 mg/dL (74-99); Non-African American GFR(CKD) >90 (>60 ml/min/1.73 sqM); Potassium 3.9 mmol/L (3.5-5.1); Sodium 135 mmol/L (137-145)
[2019-10-16] MEDS: VANCOMYCIN 1,250 MG in SODIUM CHLORIDE 0.9% 250 ML IVPB SCH (05:42)
[2019-10-16 09:20] VITALS: RESP 20
[2019-10-16] MEDS: SODIUM BICARBONATE TAB 650 MG TAB PO SCH (09:25)
[2019-10-16] MEDS: FUROSEMIDE 20 MG TAB PO SCH (09:25)
[2019-10-16] MEDS: PANTOPRAZOLE 40 MG/10 ML VIAL IVP SCH (09:25)
[2019-10-16] MEDS: METOPROLOL TARTRATE 25 MG TAB PO SCH (09:25)
[2019-10-16 12:03] VITALS: BP 96/60; PULSE 87; TEMP 98.1
--- NOTE | 2019-10-16 13:36 | P.PN ---
Subjective Progress Note Date: 10/16/19 Principal diagnosis: bilateral lower extremity swelling and ulcerations In follow-up today patient looks much better. His lower extremity swelling is significantly improved. No symptoms from PE at this time. Mildly weak, he is eating and drinking Objective - Vital Signs Vital signs: Vital Signs Temp 98.1 F 10/16/19 12:00 Pulse 87 10/16/19 12:00 Resp 20 10/16/19 12:00 BP 96/60 10/16/19 12:00 Pulse Ox 100 10/16/19 12:00 Intake & Output 10/15/19 10/16/19 10/16/19 18:59 06:59 18:59 Intake Total 480 240 712 Output Total 725 475 800 Balance -245 -235 -88 Weight 67.8 kg Intake: Oral 480 240 712 Output: Urine 725 475 800 Other: Voiding Method Urinal Urinal Urinal # Voids 2 1 1 - Constitutional General appearance: Present: cooperative, no acute distress, thin - EENT Eyes: Present: anicteric sclerae, EOMI, poor dentition ENT: Present: hearing grossly normal - Respiratory Respiratory: bilateral: diminished - Cardiovascular Heart sounds: normal: S1, S2 - Peripheral edema foot Peripheral Edema: bilateral: 1+ - Gastrointestinal General gastrointestinal: Present: normal bowel sounds, scaphoid, soft - Neurologic Neurologic: Present: CNII-XII intact - Musculoskeletal Musculoskeletal: Present: generalized weakness, strength equal bilaterally - Psychiatric Psychiatric: Present: A&O x's 3, appropriate affect, intact judgment & insight - Labs CBC & Chem 7: 10/16/19 05:00 10/16/19 05:00 Labs: Abnormal Lab Results - Last 24 Hours (Table) 10/16/19 10/16/19 Range/Units 05:00 05:00 WBC 15.2 H (3.8-10.6) k/uL RBC 2.47 L (4.30-5.90) m/uL Hgb 7.4 L (13.0-17.5) gm/dL Hct 23.3 L (39.0-53.0) % RDW 17.9 H (11.5-15.5) % Plt Count 89 L (150-450) k/uL Neutrophils # 13.7 H (1.3-7.7) k/uL Lymphocytes # 0.5 L (1.0-4.8) k/uL Sodium 135 L (137-145) mmol/L Chloride 108 H (98-107) mmol/L Glucose 73 L (74-99) mg/dL Calcium 7.2 L (8.4-10.2) mg/dL Microbiology - Last 24 Hours (Table) 10/10/19 12:04 Blood Culture - Preliminary Blood No Growth after 120 hours - Imaging and Cardiology Chest x-ray: report reviewed (new RLL infiltrate-same location as PE ) Assessment and Plan (1) Pulmonary embolism Narrative/Plan: BLE doppler negative IVC filter placement. Anticipate fluctuating platelets during treatment Anticoagulation with eliquis as long as plt are >50,000 Current Visit: Yes Status: Acute Priority: High Code(s): I26.99 - OTHER PULMONARY EMBOLISM WITHOUT ACUTE COR PULMONALE SNOMED Code(s): 84516900 (2) A-fib Narrative/Plan: New onset, no cardiac history. Cardiology consulted. Medical mgmt Current Visit: Yes Status: Acute Priority: High Code(s): I48.91 - UNSPECIFIED ATRIAL FIBRILLATION SNOMED Code(s): 66869262 (3) Cellulitis Narrative/Plan: Result of persistent edema, intravascular dehydration, malignancy and poor nutrition. Infectious Disease, Dietitian and Wound Care consulted. BLE swelling is significantly improved. Pt will cont with ID, wound care and addition of home care Current Visit: Yes Status: Acute Priority: High Code(s): L03.90 - CELLULITIS, UNSPECIFIED SNOMED Code(s): 558541561 (4) Lower extremity edema Current Visit: Yes Status: Acute Priority: High Code(s): R60.0 - LOCALIZED EDEMA SNOMED Code(s): 661084667 (5) Esophageal cancer, stage IV Narrative/Plan: Patient is status post palliative radiation, no dysphagia or odynophagia. S/P first cycle of chemotherapy. Hematological toxicities. Hope is that with treatment of his underlying malignancy, metabolically pt will be able to stabilize and heal from his current issues. Multidisciplinary approach for treatment. Dose adjustments and addition of GCSF Current Visit: No Status: Acute Priority: High Code(s): C15.9 - MALIGNANT NEOPLASM OF ESOPHAGUS, UNSPECIFIED SNOMED Code(s): 818538377 (6) Antineoplastic chemotherapy induced pancytopenia Narrative/Plan: Transfused to keep hemoglobin 7 or higher. Stable Hgb today Transfuse to keep platelets greater than 50,000 as pt is on anticoagulation. GCSF has been initiated for low WBC/ANC, resolved, GCSF discontinued Pt counts are recovering from chemotherapy. He would be due for cycle #2 tomorrow, this is on hold. He will f/u with primary Onc next week for evaluation and plan of care Current Visit: Yes Status: Acute Priority: High Code(s): D61.810 - ANTINEOPLASTIC CHEMOTHERAPY INDUCED PANCYTOPENIA; T45.1X5A - ADVERSE EFFECT OF ANTINEOPLASTIC AND IMMUNOSUP DRUGS, INIT SNOMED Code(s): 034019730377608 Plan: Case discussed with Case mgmtMartha to Nathaniel Marte for copay verifi cation
--- NOTE | 2019-10-16 17:50 | PN ---
PROGRESS NOTE DATE OF SERVICE: 10/16/2019 REASON FOR FOLLOWUP: Bilateral lower extremity blisters and cellulitis. INTERVAL HISTORY: The patient is currently afebrile, has been breathing comfortably. Denies having any chest pain or shortness of breath or cough. No nausea, vomiting, abdominal pain or pain to the legs. PHYSICAL EXAMINATION: Blood pressure is 96/60 with a pulse of 87, temperature 98.1. He is 100% on room air. General description is an elderly male lying in bed in no distress. RESPIRATORY SYSTEM: Unlabored breathing. Clear to auscultation anteriorly. HEART: S1, S2. Regular rate and rhythm. ABDOMEN: Soft. No tenderness. LABS: Hemoglobin 7.4 white count of 15.2, creatinine 0.69. Vancomycin trough 18.8. IMAGING: Chest x-ray raises the possible question of pneumonia. DIAGNOSTIC IMPRESSION AND PLAN: Patient admitted to hospital with bilateral lower extremity cellulitis and blisters. The patient did have an element of fluid overload. The patient showed clinical improvement with local wound care with ABD and Ricky wrap, with the blisters drying out. Cellulitis has improved. Will finish therapy with oral doxycycline; prescription sent to the pharmacy. Follow up in the wound care center. Continue with supportive care. MMODL / IJN: [id number] /
== END 2019-10-16 16:51 | disposition home health service (06) | DRG 252 ==
LOC: EC 10:32 → 5NMEDONC 13:31 → 3SCARD 10-11 03:23
PROVIDERS: ADMIT Family Medicine; ATTEND Family Medicine
PROC: 30233R1 Transfusion of Nonautologous Platelets into Peripheral Vein, Percutaneous Approach (ICD-10-PCS; 2019-10-11)
PROC: 30233N1 Transfusion of Nonautologous Red Blood Cells into Peripheral Vein, Percutaneous Approach (ICD-10-PCS; 2019-10-12)
PROC: 06H03DZ Insertion of Intraluminal Device into Inferior Vena Cava, Percutaneous Approach (ICD-10-PCS; principal; 2019-10-13 11:30)
DX: I82.4Z3 Acute embolism and thrombosis of unspecified deep veins of distal lower extremity, bilateral (principal); I26.99 Other pulmonary embolism without acute cor pulmonale; E43 Unspecified severe protein-calorie malnutrition; D61.810 Antineoplastic chemotherapy induced pancytopenia; J18.9 Pneumonia, unspecified organism; L03.116 Cellulitis of left lower limb; E87.2 Acidosis; N17.9 Acute kidney failure, unspecified; L97.922 Non-pressure chronic ulcer of unspecified part of left lower leg with fat layer exposed; L97.912 Non-pressure chronic ulcer of unspecified part of right lower leg with fat layer exposed; I48.19 Other persistent atrial fibrillation; C79.51 Secondary malignant neoplasm of bone; C77.1 Secondary and unspecified malignant neoplasm of intrathoracic lymph nodes; I87.333 Chronic venous hypertension (idiopathic) with ulcer and inflammation of bilateral lower extremity; E87.1 Hypo-osmolality and hyponatremia; C15.5 Malignant neoplasm of lower third of esophagus; C78.7 Secondary malignant neoplasm of liver and intrahepatic bile duct; L03.115 Cellulitis of right lower limb; L89.312 Pressure ulcer of right buttock, stage 2; I95.9 Hypotension, unspecified; I10 Essential (primary) hypertension; E78.5 Hyperlipidemia, unspecified; F17.210 Nicotine dependence, cigarettes, uncomplicated; R13.10 Dysphagia, unspecified; K21.9 Gastro-esophageal reflux disease without esophagitis; K44.9 Diaphragmatic hernia without obstruction or gangrene; D63.0 Anemia in neoplastic disease; E86.0 Dehydration; R60.0 Localized edema; E83.52 Hypercalcemia; N40.0 Benign prostatic hyperplasia without lower urinary tract symptoms; E87.70 Fluid overload, unspecified; E87.6 Hypokalemia; E07.9 Disorder of thyroid, unspecified; T45.1X5A Adverse effect of antineoplastic and immunosuppressive drugs, initial encounter; T50.2X5A Adverse effect of carbonic-anhydrase inhibitors, benzothiadiazides and other diuretics, initial encounter; Z68.20 Body mass index [BMI] 20.0-20.9, adult; Z71.3 Dietary counseling and surveillance; Z92.21 Personal history of antineoplastic chemotherapy; Z95.828 Presence of other vascular implants and grafts; Z79.899 Other long term (current) drug therapy; Z79.890 Hormone replacement therapy; Z87.01 Personal history of pneumonia (recurrent); Z92.3 Personal history of irradiation; Z98.890 Other specified postprocedural states; Z83.79 Family history of other diseases of the digestive system
CPT/HCPCS: 36415; 37191; 71045; 71046; 71275; 80048; 80053; 80202; 81001; 82565; 82607; 82728; 82747; 83540; 83550; 83605; 83735; 83880; 84145; 85025; 85610; 85730; 86850; 86900; 86901; 86920; 87040; 93005; 93970; 96361; 96365; 96366; 96375; 99285

== ENCOUNTER 2019-10-29 10:50 | Inpatient (IN) | payer MEDICARE, OTHER ==
[2019-10-29] MEDS ORDERED: SODIUM CHLORIDE 0.9% 1,000 ML IV STA ×2 (11:27→13:10)
--- NOTE | 2019-10-29 11:33 | ED ---
General Adult HPI - General Chief complaint: Recheck/Abnormal Lab/Rx Stated complaint: Malnutrition Time Seen by Provider: 10/29/19 11:10 Source: patient, family, RN notes reviewed Mode of arrival: ambulatory - History of Present Illness Initial comments: Patient is a pleasant 64-year-old male presenting to the emergency department with son for weakness. Patient has had limited oral intake over the past couple of weeks, son estimates 500 jeanna per day. Patient has been generally weak all over. Patient is not getting up or moving around, especially today. Patient is less alert than normal. Patient has known history of stage IV esophageal cancer and is not currently on treatment for this. - Related Data Home Medications Medication Instructions Recorded Confirmed Finasteride [Proscar] 5 mg PO HS 10/16/16 10/10/19 Simvastatin [Zocor] 40 mg PO SUMOWEFR 10/16/16 10/10/19 Levothyroxine Sodium [Synthroid] 75 mcg PO QAM 06/01/19 10/10/19 Calcium Carbonate [Calcium] 600 mg PO DAILY 09/19/19 10/10/19 Multivitamins, Thera [Multivitamin 1 tab PO DAILY 09/19/19 10/10/19 (formulary)] HYDROcodone/APAP 5-325MG [[place] 1 tab PO Q6HR PRN 10/04/19 10/10/19 5-325] Previous Rx's Medication Instructions Recorded Apixaban [Eliquis Starter Pack 5 mg PO DIRECTED 30 Days #1 pack 10/16/19 (for VTE)] Doxycycline [Vibramycin] 100 mg PO BID #14 capsule 10/16/19 Metoprolol Tartrate [Lopressor] 25 mg PO BID #60 tab 10/16/19 Allergies Allergy/AdvReac Type Severity Reaction Status Date / Time No Known Allergies Allergy Verified 10/29/19 11:00 Review of Systems ROS Statement: Those systems with pertinent positive or pertinent negative responses have been documented in the HPI. ROS Other: All systems not noted in ROS Statement are negative. Constitutional: Denies: fever Eyes: Denies: eye pain ENT: Denies: ear pain Respiratory: Denies: cough Cardiovascular: Denies: chest pain Endocrine: Reports: fatigue Gastrointestinal: Denies: abdominal pain Genitourinary: Denies: dysuria Musculoskeletal: Denies: back pain Skin: Denies: rash Neurological: Reports: as per HPI Past Medical History Past Medical History: Cancer, GERD/Reflux, Hyperlipidemia, Hypertension, Pneu monia, Prostate Disorder, Thyroid Disorder Additional Past Medical History / Comment(s): ANEMIA- hiatal hernia. had an episode of vertigo in May 2019. Esophageal cancer. Radiation therapy - Aug 2019. Pneumonia - 2019 History of Any Multi-Drug Resistant Organisms: None Reported Additional Past Surgical History / Comment(s): COLONOSCOPY. PROSTATE BX, right side port placement Past Anesthesia/Blood Transfusion Reactions: No Reported Reaction Past Psychological History: No Psychological Hx Reported Smoking Status: Current every day smoker Past Alcohol Use History: None Reported Past Drug Use History: None Reported - Past Family History Mother Family Medical History: Liver Disease General Exam Limitations: no limitations General appearance: alert, cachectic Head exam: Present: normocephalic Eye exam: Present: normal appearance, PERRL ENT exam: Present: mucous membranes dry Neck exam: Present: normal inspection Respiratory exam: Present: normal lung sounds bilaterally Cardiovascular Exam: Present: regular rate, normal rhythm GI/Abdominal exam: Present: soft. Absent: tenderness Extremities exam: Present: pedal edema Neurological exam: Present: alert Expanded Neurological exam: Present: protecting the airway Patient oriented to: Present: person Motor strength exam: RUE: 4, LUE: 4, RLE: 4, LLE: 4 Eye Response: (4) open spontaneously Motor Response: (6) obeys commands Verbal Response: (4) confused conversation Psychiatric exam: Present: flat affect Skin exam: Present: normal color, other (Leg ulcers bilateral lower legs, stage II to 3) Course Vital Signs 10/29/19 10/29/19 10/29/19 10:53 12:52 13:16 Temperature 97.8 F Pulse Rate 65 86 Respiratory 16 18 Rate Blood Pressure 89/67 105/87 95/59 O2 Sat by Pulse 84 L Oximetry - Reevaluation(s) Reevaluation #1: 10/29/19 13:03 Patient does meet septic shock criteria diagnosed at 1300. Blood culture and lactic acid ordered. IV antibiotics will be ordered. Fluid bolus ordered EKG Findings - EKG Comments: EKG Findings:: Sinus rhythm at 99. IN 122. QRS 80. QT 352. QTC 451. Left axis. Normal QRS. No acute ST change. Sinus arrhythmia Procedures - Sepsis Sepsis Focused Exam #1 Time Sepsis Criteria Met: 13:00 Sepsis Focused Exam Date: 10/29/19 Sepsis Focused Exam Time: 13:44 Sepsis Focused Exam Complete: Yes Vital Signs & RN Notes Reviewed: Yes Capillary Refill: < 2 Seconds: Fingers, Toes Peripheral Pulses: Normal: Radial (R), Radial (L) Skin Color: Normal for Patient Respiratory Exam: normal lung sounds Cardiovascular Exam: regular rate Medical Decision Making - Medical Decision Making Patient reevaluated and somewhat improved. Systolic blood pressure 103. Patient and family updated on results and plan. Case was discussed in detail with Dr. Carbone, covering for Dr. Crocker, who will admit. Dr. Rodriguez will be placed on consult. - Lab Data Result diagrams: 10/29/19 12:00 10/29/19 12:00 Lab Results 10/29/19 10/29/19 10/29/19 Range/Units 12:00 12:00 12:00 WBC 74.0 H* (3.8-10.6) k/uL RBC 3.04 L (4.30-5.90) m/uL Hgb 9.2 L D (13.0-17.5) gm/dL Hct 29.8 L (39.0-53.0) % MCV 97.8 (80.0-100.0) fL MCH 30.3 (25.0-35.0) pg MCHC 31.0 (31.0-37.0) g/dL RDW 18.8 H (11.5-15.5) % Plt Count 353 D (150-450) k/uL Neutrophils % 97 % Lymphocytes % 0 % Monocytes % 2 % Eosinophils % 0 % Basophils % 1 % Neutrophils # 71.8 H (1.3-7.7) k/uL Lymphocytes # 0.0 L (1.0-4.8) k/uL Monocytes # 1.4 H (0-1.0) k/uL Eosinophils # 0.0 (0-0.7) k/uL Basophils # 0.8 H (0-0.2) k/uL Hypochromasia Moderate Anisocytosis Slight Macrocytosis Slight PT 14.0 H (9.0-12.0) sec INR 1.4 H (<1.2) APTT 24.0 (22.0-30.0) sec Sodium 134 L (137-145) mmol/L Potassium 5.9 H (3.5-5.1) mmol/L Chloride 102 (98-107) mmol/L Carbon Dioxide 18 L (22-30) mmol/L Anion Gap 14 mmol/L BUN 83 H (9-20) mg/dL Creatinine 2.23 H (0.66-1.25) mg/dL Est GFR (CKD-EPI)AfAm 35 (>60 ml/min/1.73 sqM) Est GFR (CKD-EPI)NonAf 30 (>60 ml/min/1.73 sqM) Glucose 99 (74-99) mg/dL Plasma Lactic Acid Mohinder (0.7-2.0) mmol/L Calcium 12.9 H (8.4-10.2) mg/dL Phosphorus 5.4 H (2.5-4.5) mg/dL Magnesium 3.2 H (1.6-2.3) mg/dL Total Bilirubin 1.3 (0.2-1.3) mg/dL AST 203 H (17-59) U/L ALT 78 H (4-49) U/L Alkaline Phosphatase 323 H (38-126) U/L Total Protein 5.8 L (6.3-8.2) g/dL Albumin 2.6 L (3.5-5.0) g/dL Urine Color Urine Appearance (Clear) Urine pH (5.0-8.0) Ur Specific [place] (1.001-1.035) Urine Protein (Negative) Urine Glucose (UA) (Negative) Urine Ketones (Negative) Urine Blood (Negative) Urine Nitrite (Negative) Urine Bilirubin (Negative) Urine Urobilinogen (<2.0) mg/dL Ur Leukocyte Esterase (Negative) Urine RBC (0-5) /hpf Urine WBC (0-5) /hpf Urine Bacteria (None) /hpf Hyaline Casts (0-2) /lpf Urine Mucus (None) /hpf 10/29/19 10/29/19 Range/Units 12:00 13:09 WBC (3.8-10.6) k/uL RBC (4.30-5.90) m/uL Hgb (13.0-17.5) gm/dL Hct (39.0-53.0) % MCV (80.0-100.0) fL MCH (25.0-35.0) pg MCHC (31.0-37.0) g/dL RDW (11.5-15.5) % Plt Count (150-450) k/uL Neutrophils % % Lymphocytes % % Monocytes % % Eosinophils % % Basophils % % Neutrophils # (1.3-7.7) k/uL Lymphocytes # (1.0-4.8) k/uL Monocytes # (0-1.0) k/uL Eosinophils # (0-0.7) k/uL Basophils # (0-0.2) k/uL Hypochromasia Anisocytosis Macrocytosis PT (9.0-12.0) sec INR (<1.2) APTT (22.0-30.0) sec Sodium (137-145) mmol/L Potassium (3.5-5.1) mmol/L Chloride (98-107) mmol/L Carbon Dioxide (22-30) mmol/L Anion Gap mmol/L BUN (9-20) mg/dL Creatinine (0.66-1.25) mg/dL Est GFR (CKD-EPI)AfAm (>60 ml/min/1.73 sqM) Est GFR (CKD-EPI)NonAf (>60 ml/min/1.73 sqM) Glucose (74-99) mg/dL Plasma Lactic Acid Mohinder 5.5 H* (0.7-2.0) mmol/L Calcium (8.4-10.2) mg/dL Phosphorus (2.5-4.5) mg/dL Magnesium (1.6-2.3) mg/dL Total Bilirubin (0.2-1.3) mg/dL AST (17-59) U/L ALT (4-49) U/L Alkaline Phosphatase (38-126) U/L Total Protein (6.3-8.2) g/dL Albumin (3.5-5.0) g/dL Urine Color Yellow Urine Appearance Cloudy (Clear) Urine pH 5.0 (5.0-8.0) Ur Specific [place] 1.017 (1.001-1.035) Urine Protein Trace H (Negative) Urine Glucose (UA) Negative (Negative) Urine Ketones Negative (Negative) Urine Blood Small H (Negative) Urine Nitrite Negative (Negative) Urine Bilirubin Negative (Negative) Urine Urobilinogen 3.0 (<2.0) mg/dL Ur Leukocyte Esterase Small H (Negative) Urine RBC 6 H (0-5) /hpf Urine WBC 3 (0-5) /hpf Urine Bacteria Rare H (None) /hpf Hyaline Casts 6 H (0-2) /lpf Urine Mucus Rare H (None) /hpf - Radiology Data Radiology results: image reviewed (Chest x-ray shows no acute process. Underlying emphysema) Critical Care Time Critical Care Time: Yes Total Critical Care Time: 32 Disposition Clinical Impression: Septic shock, Dehydration, Cellulitis Disposition: ADMITTED IP TO THIS HOSP Condition: Serious Is patient prescribed a controlled substance at d/c from ED?: No Decision Time: 13:10
[2019-10-29] MEDS: MORPHINE SULFATE 2 MG/ML SYRINGE IVP PRN (12:05)
[2019-10-29 12:24] LABS: Anisocytosis Slight; Basophils # (A) 0.8 k/uL (0-0.2); Basophils % (A) 1 %; Eosinophils % (A) 0 %; HCT 29.8 % (39.0-53.0); Hypochromasia Moderate; Lymphocytes % (A) 0 %; MCH 30.3 pg (25.0-35.0); MCV 97.8 fL (80.0-100.0); Macrocytosis Slight; Mean Platelet Volume 9.8; Monocytes # (A) 1.4 k/uL (0-1.0); Monocytes % (A) 2 %; Neutrophils # (A) 71.8 k/uL (1.3-7.7); Neutrophils % (A) 97 %; RBC 3.04 m/uL (4.30-5.90); RDW 18.8 % (11.5-15.5)
[2019-10-29 12:25] LABS: HGB 9.2 gm/dL (13.0-17.5)
[2019-10-29 12:26] LABS: Platelet Count 353 k/uL (150-450)
[2019-10-29 12:27] LABS: INR 1.4 (<1.2)
[2019-10-29 12:30] LABS: Albumin 2.6 g/dL (3.5-5.0); Calcium 12.9 mg/dL (8.4-10.2); Magnesium 3.2 mg/dL (1.6-2.3); Phosphorus 5.4 mg/dL (2.5-4.5); Potassium 5.9 mmol/L (3.5-5.1); Total Bilirubin 1.3 mg/dL (0.2-1.3); Total Protein 5.8 g/dL (6.3-8.2)
--- NOTE | 2019-10-29 12:31 | XR ---
EXAMINATION TYPE: XR chest 2V DATE OF EXAM: 10/29/2019 COMPARISON: 10/15/2019 HISTORY: 64-year-old male with weakness TECHNIQUE: AP and lateral views FINDINGS: Leftward patient rotation. Right anterior chest wall injection port with subclavian access and cathet er tip at the upper SVC level. Heart normal size. Increased retrosternal clear space. Prominent left first rib and is unchanged. No consolidation or pleural effusion.-Within the mid to lower thoracic sp ine. Accentuated upper thoracic kyphosis. IVC filter on the lateral view. IMPRESSION: There are mild underlying emphysema. No acute process seen.
[2019-10-29] MEDS ORDERED: cefTRIAXone IN SWFI 1,000 MG/10 ML SYRINGE IVP STA (13:13)
[2019-10-29 13:14] LABS: Appearance,Urine Cloudy (Clear); Bacteria,Urine Rare /hpf; Bilirubin,Urine Negative (Negative); Blood,Urine Small (Negative); Color,Urine Yellow; Glucose,Urine (UA) Negative (Negative); Hyaline Casts,Urine 6 /lpf (0-2); Ketones,Urine Negative (Negative); Leukocyte Esterase,Urine Small (Negative); Mucus,Urine Rare /hpf; Nitrite,Urine Negative (Negative); Protein,Urine Trace (Negative); RBC,Urine 6 /hpf (0-5); Specific Gravity,Urine 1.017 (1.001-1.035); WBC,Urine 3 /hpf (0-5)
[2019-10-29] MEDS ORDERED: VANCOMYCIN IV PER PHARMACY 1 EACH MISC MISCELLANE PRN (13:14)
[2019-10-29] MEDS ORDERED: NALOXONE 0.4 MG/ML 1 ML VIAL IV PRN (13:17)
[2019-10-29] MEDS ORDERED: VANCOMYCIN 1,250 MG in SODIUM CHLORIDE 0.9% 250 ML IVPB ONE (14:00)
[2019-10-29] MEDS: SODIUM CHLORIDE 0.9% 1,000 ML IV SCH ×2 (16:25→21:00)
[2019-10-29] MEDS ORDERED: HYDROcodone/APAP 5-325MG 1 EACH TAB PO PRN (16:51)
[2019-10-29] MEDS ORDERED: FLUCONAZOLE IN NACL,ISO-OSM 100 MG in SALINE 1 50ML.BAG IVPB SCH (17:15)
--- NOTE | 2019-10-29 17:29 | P.CNPUL ---
History of Present Illness Consult date: 10/29/19 Chief complaint: Neck neck acidosis, generalized weakness, dehydration, sepsis History of present illness: This is a 64-year-old male patient was brought into the emergency department extremely weak, dehydrated, debilitated, cachectic, unable to have anything to eat with minimal amount of water drinking over the past 2 weeks. The patient has been essentially bedridden. Unable to get around. He has developed wounds that are quite open the lower extremities bilaterally being followed up at the wound center. In summary, the patient has stage IV esophageal cancer. This was a recent diagnosis. The patient was given radiation therapy for a total of 2 weeks and he received his first cycle with FOLFOX and Herceptin. The patient apparently tolerated the procedure and the treatment well. He was hospitalized on mid September for intravascular volume depletion and dehydration and worsening lower extremity edema. He was given further IV fluids. As part of further investigation a CAT scan of the chest was done and the patient was also given diagnoses of subsegmental pulmonary embolism and he was given an IVC filter. He also had developed open wounds in the lower extremities. He developed blisters and later on ulcerations for which she is being for the wound center. He claims that over the past 2 weeks, the patient hasn't been able to eat or drink. No abdominal distention. No diarrhea. He has a port in his right IJ which is functional for now. His white cell count currently is 74. Hemoccult was at 9.2. He has 97% neutropenia. Initial lactic acidosis with a lactic acid level of 5.5 came up to 11.4 with some fluids. His calcium levels at 12.9 could be related to dehydration versus skeletal metastases. LFTs are also abnormal with an AST of 203 ALT of 78 alk phos of 323. He has an anion gap metabolic acidosis and acute kidney injury with a creatinine of 2.2. Note that the patient's disease is metastatic. He has adrenal metastases. He has BPH, hypothyroidism, hyperlipidemia. Review of Systems Constitutional: Reports fatigue, Reports lethargy, Reports poor appetite, Reports weakness, Reports weight loss (He lost weight from 78 kg down to 63 and over the course of 5 months the patient lost approximately 15 kg) Eyes: denies as per HPI, denies blurred vision, denies bulging eye, denies decreased vision, denies diplopia, denies discharge, denies dry eye, denies irritation, denies itching, denies pain, denies photophobia, denies loss of peripheral vision, denies loss of vision, denies tunnel vision/blind spots Ears: deny: decreased hearing, ear discharge, earache, tinnitus Ears, nose, mouth and throat: Reports dysphagia, Reports hoarseness, Reports odynophagia Cardiovascular: Reports decreased exercise tolerance Respiratory: Reports as per HPI Gastrointestinal: Reports as per HPI Genitourinary: Reports as per HPI Musculoskeletal: Reports gait dysfunction, Reports limitation of motion, Reports muscle weakness Musculoskeletal: bilateral: ankle swelling, absent: ankle pain, ankle stiffness Integumentary: Reports wounds (Bilateral wounds in lower extremities) Neurological: Reports as per HPI, Reports gait dysfunction, Reports weakness Psychiatric: Reports as per HPI Endocrine: Reports as per HPI Hematologic/Lymphatic: Reports as per HPI Allergic/Immunologic: Reports as per HPI Past Medical History Past Medical History: Cancer (Stage IV esophageal cancer postradiation therapy, post 1 cycle of FOLFOX and Herceptin. The patient has adrenal metastases), GERD/Reflux, Hyperlipidemia, Hypertension, Prostate Disorder, Thyroid Disorder Additional Past Medical History / Comment(s): Esophageal cancer, pulmonary e mbolism, IVC filter placement, anemia, hiatal hernia, acid reflux, hypertension, hypothyroidism and BPH and chronic vertigo and chronic smoking History of Any Multi-Drug Resistant Organisms: None Reported Additional Past Surgical History / Comment(s): COLONOSCOPY. PROSTATE BX, right side port placement Past Anesthesia/Blood Transfusion Reactions: No Reported Reaction Past Psychological History: No Psychological Hx Reported Smoking Status: Current every day smoker Past Alcohol Use History: None Reported Past Drug Use History: None Reported - Past Family History Mother Family Medical History: Liver Disease Medications and Allergies Home Medications Medication Instructions Recorded Confirmed Type Finasteride [Proscar] 5 mg PO HS 10/16/16 10/29/19 History Simvastatin [Zocor] 40 mg PO SUMOWEFR 10/16/16 10/29/19 History Levothyroxine Sodium [Synthroid] 75 mcg PO DAILY 06/01/19 10/29/19 History HYDROcodone/APAP 5-325MG [[place] 1 tab PO Q6HR PRN 10/04/19 10/29/19 History 5-325] Doxycycline [Vibramycin] 100 mg PO BID #14 capsule 10/16/19 10/29/19 Rx Apixaban [Eliquis Starter Pack See Taper PO DIRECTED 10/29/19 10/29/19 History (for VTE)] Collagenase [Santyl] 1 applic TOPICAL DAILY 10/29/19 10/29/19 History Lidocaine-Prilocaine Cream [[place] 1 applic TOPICAL DAILY PRN 10/29/19 10/29/19 History Cream 2.5%/2.5%] Allergies Allergy/AdvReac Type Severity Reaction Status Date / Time No Known Allergies Allergy Verified 10/29/19 14:00 Physical Exam Vitals: Vital Signs Temp Pulse Resp BP Pulse Ox 10/29/19 16:46 88 18 122/84 100 10/29/19 16:27 100 18 122/91 10/29/19 15:00 88 18 128/82 10/29/19 13:16 86 18 95/59 10/29/19 12:52 105/87 10/29/19 10:53 97.8 F 65 16 89/67 84 L Intake and Output 10/29/19 10/29/19 10/29/19 06:59 14:59 22:59 Other: Voiding Method Incontinent Weight 63.503 kg Thin frail and cachectic, malnourished and thin and frail male patient, poor historian, lethargic yet arousable. Head exam was generally normal. There was no scleral icterus or corneal arcus. Mucous membranes were moist. Neck is supple and the patient has extremely dry mucous membranes. The patient has extensive oropharyngeal candidiasis. Lungs were clear to auscultation and percussion, and with normal diaphragmatic excursion. No wheezes or rales were noted. Cardiac exam revealed the PMI to be normally situated and sized. The rhythm was regular and no extrasystoles were noted during several minutes of auscultation. The first and second heart sounds were normal and physiologic splitting of the s econd heart sound was noted. There were no murmurs, rubs, clicks, or gallops. The patient has a MediPort over the right anterior chest area. Abdomen is soft and nontender. No organomegaly.Abdominal exam revealed normal bowel sounds. The abdomen was soft, non-tender, and without masses, organomega ly, or appreciable enlargement of the abdominal aorta. Extremities show chronic edema, limited records of those activities bilaterally along with multiple ulceration of various sizes covered with yellowish necrotic skin tissue . Pulses are diminished at the present. No cyanosis. No clubbing. Neurologically, the patient is extremely weak and lethargic and he is arousable and follows commands and answering question. Extremities without any limitation. Results - Laboratory Findings CBC and BMP: 10/29/19 12:00 10/29/19 12:00 PT/INR, D-dimer PT 14.0 sec (9.0-12.0) H 10/29/19 12:00 INR 1.4 (<1.2) H 10/29/19 12:00 Abnormal lab findings: Abnormal Labs 10/29/19 10/29/19 10/29/19 12:00 12:00 12:00 WBC 74.0 H* RBC 3.04 L Hgb 9.2 L D Hct 29.8 L RDW 18.8 H Neutrophils # 71.8 H Lymphocytes # 0.0 L Monocytes # 1.4 H Basophils # 0.8 H PT 14.0 H INR 1.4 H Sodium 134 L Potassium 5.9 H Carbon Dioxide 18 L BUN 83 H Creatinine 2.23 H Plasma Lactic Acid Mohinder Calcium 12.9 H Phosphorus 5.4 H Magnesium 3.2 H AST 203 H ALT 78 H Alkaline Phosphatase 323 H Total Protein 5.8 L Albumin 2.6 L Urine Protein Urine Blood Ur Leukocyte Esterase Urine RBC Urine Bacteria Hyaline Casts Urine Mucus 10/29/19 10/29/19 10/29/19 12:00 13:09 15:39 WBC RBC Hgb Hct RDW Neutrophils # Lymphocytes # Monocytes # Basophils # PT INR Sodium Potassium Carbon Dioxide BUN Creatinine Plasma Lactic Acid Mohinder 5.5 H* 11.4 H* Calcium Phosphorus Magnesium AST ALT Alkaline Phosphatase Total Protein Albumin Urine Protein Trace H Urine Blood Small H Ur Leukocyte Esterase Small H Urine RBC 6 H Urine Bacteria Rare H Hyaline Casts 6 H Urine Mucus Rare H - Diagnostic Findings Chest x-ray: image reviewed Assessment and Plan Plan: 1 sepsis under investigation. Consider soft tissue infection with secondary bacteremia and sepsis. The patient presents in with extreme dehydration, leukocytosis and lactic acidosis. 2 mild lactic acidosis 3 severe leukocytosis 4 stage IV metastatic esophageal cancer with metastases to the liver, adrenal gland and pelvis. The patient was treated with radiation therapy and systemic chemotherapy with received a cycle of FOLFOX and Herceptin. Since then, the patient has lost approximately 15 kg. Over the past 2-3 weeks, the patient is completely obstructed and the patient unable to tolerate any form of oral solids or liquids. 5 hypercalcemia secondary to skeletal metastases versus dehydration 6 lower extremity wounds, multiple with various areas of necrosis with possible superimposed cellulitis in lower extremities 7 oropharyngeal candidiasis 8 recent subsegmental pulmonary embolism maintained on no anticoagulation for now and the patient has an IVC filter in place 9 extensive cachexia and weight loss 10 very poor performance and functional status and the patient has become bedridden and unable to walk and unable to move around with profound muscle weakness and severe protein calorie malnutrition 11 hypothyroidism 12 smoking 13 hyperlipidemia 14 BPH 15 abnormal LFTs secondary to liver metastases Plan IV fluid resuscitation. I would suggest urine at least 3 L of normal saline and will maintain him at the rate of 150 mL an hour of normal saline infusion. Blood cultures Urine cultures Chest x-ray was noted and there is no evidence of any acute pulmonary infiltration or pneumonia Cover the patient with a combination of IV Zosyn, vancomycin and Diflucan Wound care to lower extremities. Patient is applying Santyl to the lower extremities and will keep them wrapped for now. We'll consult wound care/ID Lactic acid level is improved Monitor the white count Use pressors if needed Discussed the findings with the son at the bedside. The patient should have a close status changes based on the fact that his underlying disease is metastatic and the patient will not recover at this point in time based on the fact that his for performance and functional status extremely poor and the patient has severe cachexia and protein calorie malnutrition. Furthermore, feeding is going to be an active issue on this patient as the patient is completely obstructed from his esophageal cancer and he hasn't been able to tolerate anything orally. I personally don't think that he is up good candidate for PEG tube feeding. I will raise this issue with oncology will going to be consult on the case. IV Protonix and subcutaneous heparin We'll continue to follow.
--- NOTE | 2019-10-29 17:47 | P.HPIM ---
History of Present Illness H&P Date: 10/29/19 Chief Complaint: Weakness/malnutrition 64-year-old male presenting to the emergency department with son for weakness. Patient has had limited oral intake over the past couple of weeks, son estimates 500 jeanna per day. Patient has been generally weak all over. Patient is not getting up or moving around, especially today. Patient is less alert than normal. Patient has known history of stage IV esophageal cancer and is not currently on treatment for this. The patient has been essentially bedridden. Unable to get around. He has developed wounds that are quite open the lower extremities bilaterally being followed up at the wound center. His white cell count currently is 74. Hemoccult was at 9.2. He has 97% neutropenia. Initial lactic acidosis with a lactic acid level of 5.5 came up to 11.4 with some fluids. His calcium levels at 12.9 could be related to deh ydration versus skeletal metastases. LFTs are also abnormal with an AST of 203 ALT of 78 alk phos of 323. He has an anion gap metabolic acidosis and acute kidney injury with a creatinine of 2.2. Note that the patient's disease is metastatic. He has adrenal metastases. Patient was initially planned to be admitted to selective care unit however upon reevaluation patient's condition worsened and patient was recommended an admission in ICU Review of Systems REVIEW OF SYSTEMS: CONSTITUTIONAL: Cachectic. HEENT: No recent visual problems or hearing problems. Denied any sore throat. CARDIOVASCULAR: No chest pain, orthopnea, PND, no palpitations, no syncope. PULMONARY: No shortness of breath, no cough, no hemoptysis. GASTROINTESTINAL: No diarrhea, no nausea, no vomiting, no abdominal pain. NEUROLOGICAL: No headaches, no weakness, no numbness. HEMATOLOGICAL: Denies any bleeding or petechiae. GENITOURINARY: Denies any burning micturition, frequency, or urgency. MUSCULOSKELETAL/RHEUMATOLOGICAL: Denies any joint pain, swelling, or any muscle pain. ENDOCRINE: Denies any polyuria or polydipsia. The rest of the 14-point review of systems is negative. Past Medical History Past Medical History: Cancer, GERD/Reflux, Hyperlipidemia, Hypertension, Pneumonia, Prostate Disorder, Thyroid Disorder Additional Past Medical History / Comment(s): ANEMIA- hiatal hernia. had an episode of vertigo in May 2019. Esophageal cancer. Radiation therapy - Aug 2019. Pneumonia - 2019 History of Any Multi-Drug Resistant Organisms: None Reported Additional Past Surgical History / Comment(s): COLONOSCOPY. PROSTATE BX, right side port placement Past Anesthesia/Blood Transfusion Reactions: No Reported Reaction Past Psychological History: No Psychological Hx Reported Smoking Status: Current every day smoker Past Alcohol Use History: None Reported Past Drug Use History: None Reported - Past Family History Mother Family Medical History: Liver Disease Medications and Allergies Home Medications Medication Instructions Recorded Confirmed Type Finasteride [Proscar] 5 mg PO HS 10/16/16 10/29/19 History Simvastatin [Zocor] 40 mg PO SUMOWEFR 10/16/16 10/29/19 History Levothyroxine Sodium [Synthroid] 75 mcg PO DAILY 06/01/19 10/29/19 History HYDROcodone/APAP 5-325MG [[place] 1 tab PO Q6HR PRN 10/04/19 10/29/19 History 5-325] Doxycycline [Vibramycin] 100 mg PO BID #14 capsule 10/16/19 10/29/19 Rx Apixaban [Eliquis Starter Pack See Taper PO DIRECTED 10/29/19 10/29/19 History (for VTE)] Collagenase [Santyl] 1 applic TOPICAL DAILY 10/29/19 10/29/19 History Lidocaine-Prilocaine Cream [Emla 1 applic TOPICAL DAILY PRN 10/29/19 10/29/19 History Cream 2.5%/2.5%] Allergies Allergy/AdvReac Type Severity Reaction Status Date / Time No Known Allergies Allergy Verified 10/29/19 14:00 Physical Exam Vitals: Vital Signs Temp Pulse Resp BP Pulse Ox 10/29/19 15:00 88 18 128/82 10/29/19 13:16 86 18 95/59 10/29/19 12:52 105/87 10/29/19 10:53 97.8 F 65 16 89/67 84 L Intake and Output 10/29/19 10/29/19 10/29/19 06:59 14:59 22:59 Other: Voiding Method Incontinent Weight 63.503 kg - Constitutional General appearance: Present: average body habitus, cooperative, no acute distress - EENT Eyes: Present: anicteric sclerae, EOMI, PERRLA, normal appearance ENT: Present: hearing grossly normal, normal oropharynx Ears: bilateral: normal - Neck Neck: Present: normal ROM. Absent: lymphadenopathy, rigidity, thyromegaly Carotids: negative: bruit present Thyroid: bilateral: normal size, negative: enlarged, nodule - Respiratory Respiratory: bilateral: CTA, negative: rales, rhonchi, wheezing - Cardiovascular Rhythm: regular Heart sounds: normal: S1, S2 Abnormal Heart Sounds: Absent: systolic murmur, diastolic murmur - Gastrointestinal General gastrointestinal: Present: normal bowel sounds, soft. Absent: distended, organomegaly, tenderness - Genitourinary Genitourinary Comment(s): deferred - Integumentary Integumentary: Present: normal turgor. Absent: jaundiced, rash, ulcer - Neurologic Neurologic: Present: CNII-XII intact. Absent: focal deficits - Musculoskeletal Musculoskeletal: Present: gait normal, strength equal bilaterally Results CBC & Chem 7: 10/29/19 12:00 10/29/19 12:00 Labs: Abnormal Lab Results - Last 24 Hours (Table) 10/29/19 10/29/19 10/29/19 Range/Units 12:00 12:00 12:00 WBC 74.0 H* (3.8-10.6) k/uL RBC 3.04 L (4.30-5.90) m/uL Hgb 9.2 L D (13.0-17.5) gm/dL Hct 29.8 L (39.0-53.0) % RDW 18.8 H (11.5-15.5) % Neutrophils # 71.8 H (1.3-7.7) k/uL Lymphocytes # 0.0 L (1.0-4.8) k/uL Monocytes # 1.4 H (0-1.0) k/uL Basophils # 0.8 H (0-0.2) k/uL PT 14.0 H (9.0-12.0) sec INR 1.4 H (<1.2) Sodium 134 L (137-145) mmol/L Potassium 5.9 H (3.5-5.1) mmol/L Carbon Dioxide 18 L (22-30) mmol/L BUN 83 H (9-20) mg/dL Creatinine 2.23 H (0.66-1.25) mg/dL Plasma Lactic Acid Mohinder (0.7-2.0) mmol/L Calcium 12.9 H (8.4-10.2) mg/dL Phosphorus 5.4 H (2.5-4.5) mg/dL Magnesium 3.2 H (1.6-2.3) mg/dL AST 203 H (17-59) U/L ALT 78 H (4-49) U/L Alkaline Phosphatase 323 H (38-126) U/L Total Protein 5.8 L (6.3-8.2) g/dL Albumin 2.6 L (3.5-5.0) g/dL Urine Protein (Negative) Urine Blood (Negative) Ur Leukocyte Esterase (Negative) Urine RBC (0-5) /hpf Urine Bacteria (None) /hpf Hyaline Casts (0-2) /lpf Urine Mucus (None) /hpf 10/29/19 10/29/19 10/29/19 Range/Units 12:00 13:09 15:39 WBC (3.8-10.6) k/uL RBC (4.30-5.90) m/uL Hgb (13.0-17.5) gm/dL Hct (39.0-53.0) % RDW (11.5-15.5) % Neutrophils # (1.3-7.7) k/uL Lymphocytes # (1.0-4.8) k/uL Monocytes # (0-1.0) k/uL Basophils # (0-0.2) k/uL PT (9.0-12.0) sec INR (<1.2) Sodium (137-145) mmol/L Potassium (3.5-5.1) mmol/L Carbon Dioxide (22-30) mmol/L BUN (9-20) mg/dL Creatinine (0.66-1.25) mg/dL Plasma Lactic Acid Mohinder 5.5 H* 11.4 H* (0.7-2.0) mmol/L Calcium (8.4-10.2) mg/dL Phosphorus (2.5-4.5) mg/dL Magnesium (1.6-2.3) mg/dL AST (17-59) U/L ALT (4-49) U/L Alkaline Phosphatase (38-126) U/L Total Protein (6.3-8.2) g/dL Albumin (3.5-5.0) g/dL Urine Protein Trace H (Negative) Urine Blood Small H (Negative) Ur Leukocyte Esterase Small H (Negative) Urine RBC 6 H (0-5) /hpf Urine Bacteria Rare H (None) /hpf Hyaline Casts 6 H (0-2) /lpf Urine Mucus Rare H (None) /hpf Assessment and Plan Assessment: 1. Sepsis; source unclear; - Patient will be admitted to ICU and will be fluid resuscitated with at least 3 L of normal saline followed by maintenance fluids of 1 50 mL per hour; patient has been pancultured; chest x-ray is negative for any acute process; movie editor recommending using IV antibiotic combination of Zosyn, vancomycin and Diflucan; wound care consult; ID is consulted for further recommendations 2. Severe leukocytosis/lactic acidosis; secondary to sepsis; continue to monitor CBC and lactic acid levels 3. 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 Hypercalcemia; multifactorial; skeletal metastases versus dehydration; continue with IV fluid hydration as indicated above 5. Oral pharyngeal candidiasis; Diflucan is added to treatment regimen 6. Hypothyroidism; patient takes levothyroxine at home; might need to be switched to IV form due to difficulty in swallowing 7. Hyperlipidemia; hold off on statin therapy DVT prophylaxis; SCDs/ heparin CODE STATUS; full code so far; patient and family will discuss CODE STATUS with Dr. Juarez
[2019-10-29 18:26] LABS: Glucose,Whole Blood 91 mg/dL (75-99)
[2019-10-29] MEDS: FLUCONAZOLE IN NACL,ISO-OSM 100 MG in SALINE 1 50ML.BAG IVPB SCH (18:48)
[2019-10-29] MEDS: ATORVASTATIN 20 MG TAB PO SCH (19:49)
[2019-10-29] MEDS ORDERED: FINASTERIDE 5 MG TAB PO SCH (21:00)
[2019-10-29] MEDS ORDERED: APIXABAN 2.5 MG TABLET PO SCH (21:00)
[2019-10-29] MEDS ORDERED: MORPHINE SULFATE 2 MG/ML SYRINGE IVP PRN (22:09)
[2019-10-29 23:11] LABS: Glucose,Whole Blood 78 mg/dL (75-99)
[2019-10-29] MEDS: HEPARIN SODIUM,PORCINE 5,000 UNIT/ML 1 ML VIAL SQ SCH (23:43)
[2019-10-30] MEDS ORDERED: SODIUM CHLORIDE 0.9% 1,000 ML IV ONE
[2019-10-30] MEDS ORDERED: PIPERACILLIN-TAZOBACTAM 3.375 GM in SODIUM CHLORIDE 0.9% 100 ML IVPB SCH ×2
--- NOTE | 2019-10-30 00:30 | P.CONS ---
History of Present Illness - Reason for Consult Consult date: 10/29/19 leukocytosis and sepsis Requesting physician: Clovis Neal - Chief Complaint weakness and no oral intake x days - History of Present Illness Patient is a 64-year-old male with a past medical history significant for stage IV esophageal cancer over the patient received 2 weeks of radiation and chemo 1 cycle patient was recently admitted to this facility in this patient who did have significant lower extremity swelling with multiple blisters and superficial wound patient did have evidence of PE and did have IVC filter placed patient has not been brought to the [facility] ER by the son with chief complaints of patient generalized weakness and significant decrease in his oral intake patient noticed to be very weak and cachectic there is no clear history of any fever or any chills on arrival to the ER the patient has been afebrile his clinically stable not on any pressor support patient did have white count of 74,000 hemoglobin of 9.2 lactic acid was elevated 2.5 creatinine 2.23 urine was negative patient noticed to have significant worsening of his lower extremity wounds he has been admitted to the ICU he was started on vancomycin and Zosyn and Diflucan if actually was consulted for further recommendation about antibiotic most information has been obtained from review the chart and talking to the nursing staff. Patient unable to provide good history and no family member at the bedside, though patient denied any chest pain or shortness with a cough no abdominal pain has been complaints of pain to the lower extremity but apparently no worsening. Review of Systems Positive point has been mentioned in HPI rest of the systems are negative Past Medical History Past Medical History: Cancer, GERD/Reflux, Hyperlipidemia, Hypertension, Pneumonia, Prostate Disorder, Thyroid Disorder Additional Past Medical History / Comment(s): ANEMIA- hiatal hernia. had an episode of vertigo in May 2019. Esophageal cancer. Radiation therapy - Aug 2019. Pneumonia - 2019 History of Any Multi-Drug Resistant Organisms: None Reported Additional Past Surgical History / Comment(s): COLONOSCOPY. PROSTATE BX, right side port placement Past Anesthesia/Blood Transfusion Reactions: No Reported Reaction Past Psychological History: No Psychological Hx Reported Smoking Status: Current every day smoker Past Alcohol Use History: None Reported Past Drug Use History: None Reported - Past Family History Mother Family Medical History: Liver Disease Medications and Allergies Home Medications Medication Instructions Recorded Confirmed Type Finasteride [Proscar] 5 mg PO HS 10/16/16 10/29/19 History Simvastatin [Zocor] 40 mg PO SUMOWEFR 10/16/16 10/29/19 History Levothyroxine Sodium [Synthroid] 75 mcg PO DAILY 06/01/19 10/29/19 History HYDROcodone/APAP 5-325MG [[place] 1 tab PO Q6HR PRN 10/04/19 10/29/19 History 5-325] Doxycycline [Vibramycin] 100 mg PO BID #14 capsule 10/16/19 10/29/19 Rx Apixaban [Eliquis Starter Pack See Taper PO DIRECTED 10/29/19 10/29/19 History (for VTE)] Collagenase [Santyl] 1 applic TOPICAL DAILY 10/29/19 10/29/19 History Lidocaine-Prilocaine Cream [Emla 1 applic TOPICAL DAILY PRN 10/29/19 10/29/19 History Cream 2.5%/2.5%] Allergies Allergy/AdvReac Type Severity Reaction Status Date / Time No Known Allergies Allergy Verified 10/29/19 14:00 Physical Exam Vitals: Vital Signs Temp Pulse Resp BP Pulse Ox 10/29/19 18:24 97.8 F 88 18 122/84 100 10/29/19 16:46 88 18 122/84 100 10/29/19 16:27 100 18 122/91 10/29/19 15:00 88 18 128/82 10/29/19 13:16 86 18 95/59 10/29/19 12:52 105/87 10/29/19 10:53 97.8 F 65 16 89/67 84 L Intake and Output 10/29/19 10/29/19 10/29/19 06:59 14:59 22:59 Other: Voiding Method Incontinent Weight 63.503 kg GENERAL DESCRIPTION: Elderly male lying in bed, no distress. No tachypnea or accessory muscle of respiration use. HEENT: Shows Pallor , no scleral icterus. Oral mucous membrane is dry. NECK: Trachea central, no thyromegaly. LUNGS: Unlabored breathing. Decreased breath sound at bases. No wheeze or crackle. HEART: S1, S2, regular rate and rhythm. ABDOMEN: Soft, no tenderness , guarding or rigidity EXTREMITIES: 4+ edema feet bilaterally and this patient did have multiple wounds to the both legs with slough tissue minimal surrounding redness no foul-smelling drainage. SKIN: No rash, no masses palpable. NEUROLOGICAL: The patient is awake, alert, oriented x2, mood and affect normal. Results CBC & Chem 7: 10/29/19 12:00 10/29/19 12:00 Labs: Abnormal Lab Results - Last 24 Hours (Table) 10/29/19 10/29/19 10/29/19 Range/Units 12:00 12:00 12:00 WBC 74.0 H* (3.8-10.6) k/uL RBC 3.04 L (4.30-5.90) m/uL Hgb 9.2 L D (13.0-17.5) gm/dL Hct 29.8 L (39.0-53.0) % RDW 18.8 H (11.5-15.5) % Neutrophils # 71.8 H (1.3-7.7) k/uL Lymphocytes # 0.0 L (1.0-4.8) k/uL Monocytes # 1.4 H (0-1.0) k/uL Basophils # 0.8 H (0-0.2) k/uL PT 14.0 H (9.0-12.0) sec INR 1.4 H (<1.2) Sodium 134 L (137-145) mmol/L Potassium 5.9 H (3.5-5.1) mmol/L Carbon Dioxide 18 L (22-30) mmol/L BUN 83 H (9-20) mg/dL Creatinine 2.23 H (0.66-1.25) mg/dL Plasma Lactic Acid Mohinder (0.7-2.0) mmol/L Calcium 12.9 H (8.4-10.2) mg/dL Phosphorus 5.4 H (2.5-4.5) mg/dL Magnesium 3.2 H (1.6-2.3) mg/dL AST 203 H (17-59) U/L ALT 78 H (4-49) U/L Alkaline Phosphatase 323 H (38-126) U/L Total Protein 5.8 L (6.3-8.2) g/dL Albumin 2.6 L (3.5-5.0) g/dL Urine Protein (Negative) Urine Blood (Negative) Ur Leukocyte Esterase (Negative) Urine RBC (0-5) /hpf Urine Bacteria (None) /hpf Hyaline Casts (0-2) /lpf Urine Mucus (None) /hpf 10/29/19 10/29/19 10/29/19 Range/Units 12:00 13:09 15:39 WBC (3.8-10.6) k/uL RBC (4.30-5.90) m/uL Hgb (13.0-17.5) gm/dL Hct (39.0-53.0) % RDW (11.5-15.5) % Neutrophils # (1.3-7.7) k/uL Lymphocytes # (1.0-4.8) k/uL Monocytes # (0-1.0) k/uL Basophils # (0-0.2) k/uL PT (9.0-12.0) sec INR (<1.2) Sodium (137-145) mmol/L Potassium (3.5-5.1) mmol/L Carbon Dioxide (22-30) mmol/L BUN (9-20) mg/dL Creatinine (0.66-1.25) mg/dL Plasma Lactic Acid Mohinder 5.5 H* 11.4 H* (0.7-2.0) mmol/L Calcium (8.4-10.2) mg/dL Phosphorus (2.5-4.5) mg/dL Magnesium (1.6-2.3) mg/dL AST (17-59) U/L ALT (4-49) U/L Alkaline Phosphatase (38-126) U/L Total Protein (6.3-8.2) g/dL Albumin (3.5-5.0) g/dL Urine Protein Trace H (Negative) Urine Blood Small H (Negative) Ur Leukocyte Esterase Small H (Negative) Urine RBC 6 H (0-5) /hpf Urine Bacteria Rare H (None) /hpf Hyaline Casts 6 H (0-2) /lpf Urine Mucus Rare H (None) /hpf Assessment and Plan Assessment: 1-patient admitted hospital with significant repeat white count 74,000 in this patient who did have a stage IV esophageal cancer and has received chemo may have received colony stimulating factor such as Neulasta post chemo and may be the reason why his white count was significantly elevated other etiologies could be significant dehydration also with her lower extremity wound and cellulitis underlying abdominal source not entirely excluded 2-patient with borderline kidney function high risk of nephrotoxicity (1) Leukocytosis Current Visit: Yes Status: Acute Code(s): D72.829 - ELEVATED WHITE BLOOD CELL COUNT, UNSPECIFIED SNOMED Code(s): 561440609 (2) Cellulitis Current Visit: Yes Status: Acute Priority: High Code(s): L03.90 - CELLULITIS, UNSPECIFIED SNOMED Code(s): 255916901 (3) Nonhealing ulcer of left lower extremity with fat layer exposed Current Visit: No Status: Acute Code(s): L97.922 - NON-PRS CHR ULC UNSP PRT OF L LOW LEG W FAT LAYER EXPOSED SNOMED Code(s): 27052247 (4) Nonhealing ulcer of right lower extremity with fat layer exposed Current Visit: No Status: Acute Code(s): L97.912 - NON-PRS CHR ULC UNSP PRT OF R LOW LEG W FAT LAYER EXPOSED SNOMED Code(s): 83464767 Plan: 1-vancomycin pharmacy to dose her with a target trough of 15 while watching her kidney function and Vanco trough closely. 2-discontinue Zosyn to decrease risk of nephrotoxicity and add cefepime to cover for the gram-negative 3-local wound care to continue with the Santyl and may benefit from surgical debridement However in view of overall poor health and prognosis may benefit from hospice oriented care We will follow on clinical condition and cultures to further adjust medication if needed Thank you for this consultation we will follow the patient along with you Time with Patient: Greater than 30
[2019-10-30] MEDS: MORPHINE SULFATE 2 MG/ML SYRINGE IVP PRN (00:53)
[2019-10-30 02:07] LABS: Glucose,Whole Blood 38 mg/dL (75-99)
[2019-10-30 02:07] LABS: Glucose,Whole Blood <20 mg/dL (75-99)
[2019-10-30] MEDS ORDERED: DEXTROSE 50% SYRINGE 50 ML IVP ONE (02:08)
[2019-10-30 02:33] LABS: Glucose,Whole Blood 73 mg/dL (75-99)
[2019-10-30] MEDS ORDERED: DEXTROSE 5% IN WATER 1,000 ML IV SCH (02:45)
[2019-10-30 03:41] LABS: Glucose,Whole Blood 72 mg/dL (75-99)
[2019-10-30 04:12] LABS: Anisocytosis Slight; Basophils % (A) 0 %; Eosinophils % (A) 0 %; HCT 25.9 % (39.0-53.0); HGB 7.9 gm/dL (13.0-17.5); Hypochromasia Marked; Lymphocytes # (A) 0.1 k/uL (1.0-4.8); Lymphocytes % (A) 0 %; MCH 30.7 pg (25.0-35.0); MCHC 30.6 g/dL (31.0-37.0); Macrocytosis Moderate; Mean Platelet Volume 9.9; Monocytes # (A) 1.1 k/uL (0-1.0); Monocytes % (A) 2 %; Neutrophils # (A) 64.5 k/uL (1.3-7.7); Neutrophils % (A) 98 %; Platelet Count 241 k/uL (150-450); RBC 2.59 m/uL (4.30-5.90); RDW 19.4 % (11.5-15.5)
[2019-10-30 04:27] LABS: WBC 65.8 k/uL (3.8-10.6)
[2019-10-30] MEDS: SODIUM CHLORIDE 0.9% 1,000 ML IV SCH ×2 (04:27→12:02)
[2019-10-30 04:41] LABS: Calcium 10.6 mg/dL (8.4-10.2); Potassium 4.5 mmol/L (3.5-5.1); Total Bilirubin 0.8 mg/dL (0.2-1.3); Total Protein 4.7 g/dL (6.3-8.2)
[2019-10-30 06:25] LABS: Glucose,Whole Blood 92 mg/dL (75-99)
[2019-10-30] MEDS ORDERED: LEVOTHYROXINE 75 MCG TAB PO SCH (06:30)
[2019-10-30] MEDS: ATORVASTATIN 20 MG TAB PO SCH (08:26)
[2019-10-30] MEDS: HEPARIN SODIUM,PORCINE 5,000 UNIT/ML 1 ML VIAL SQ SCH (08:31)
[2019-10-30] MEDS: FLUCONAZOLE IN NACL,ISO-OSM 100 MG in SALINE 1 50ML.BAG IVPB SCH (08:32)
[2019-10-30 09:00] VITALS: TEMP 96.7
[2019-10-30] MEDS ORDERED: CEFEPIME 2 GM in SODIUM CHLORIDE 0.9% 100 ML IVPB SCH (09:00)
[2019-10-30] MEDS ORDERED: PANTOPRAZOLE 40 MG/10 ML VIAL IVP SCH (09:00)
[2019-10-30] MEDS ORDERED: COLLAGENASE 250 UNIT/GM OINTMENT 30 GM TUBE TOPICAL SCH (09:00)
--- NOTE | 2019-10-30 09:41 | P.PN ---
Subjective Progress Note Date: 10/30/19 This is a 64-year-old male patient was brought into the emergency department extremely weak, dehydrated, debilitated, cachectic, unable to have anything to eat with minimal amount of water drinking over the past 2 weeks. The patient has been essentially bedridden. Unable to get around. He has developed wounds that are quite open the lower extremities bilaterally being followed up at the wound center. In summary, the patient has stage IV esophageal cancer. This was a recent diagnosis. The patient was given radiation therapy for a total of 2 weeks and he received his first cycle with FOLFOX and Herceptin. The patient apparently tolerated the procedure and the treatment well. He was hospitalized on mid September for intravascular volume depletion and dehydration and worsening lower extremity edema. He was given further IV fluids. As part of further investigation a CAT scan of the chest was done and the patient was also given diagnoses of subsegmental pulmonary embolism and he was given an IVC filter. He also had developed open wounds in the lower extremities. He developed blisters and later on ulcerations for which she is being for the wound center. He claims that over the past 2 weeks, the patient hasn't been able to eat or drink. No abdominal distention. No diarrhea. He has a port in his right IJ which is functional for now. His white cell count currently is 74. Hemoccult was at 9.2. He has 97% neutropenia. Initial lactic acidosis with a lactic acid level of 5.5 came up to 11.4 with some fluids. His calcium levels at 12.9 could be related to dehydration versus skeletal metastases. LFTs are also abnormal with an AST of 203 ALT of 78 alk phos of 323. He has an anion gap metabolic acidosis and acute kidney injury with a creatinine of 2.2. Note that the patient's disease is metastatic. He has adrenal metastases. He has BPH, hypothyroidism, hyperlipidemia. On today's evaluation of 10/30/2019 and seeing the patient for a follow-up. The patient overnight received IV fluids and the patient received a total of 3 L to 4 L. He is currently on normal saline today to 130 mL an hour. He is also receiving D5 water at the rate of 75 as the patient became hypoglycemic with blood sugar dropped down to low 60s. He is awake and he is alert. He looks very emaciated cachectic and weak. No hypotension and the patient has not required any pressors and is being covered with broad-spectrum antibiotics including a combination of cefepime and Diflucan and vancomycin. Lower extremity wounds are wrapped for now. The patient also has a stage III coccygeal ulcer for which and OptiForm was applied. He failed a swallow evaluation. As mentioned earlier he is obstructed at the level of his esophagus and he cannot tolerate any oral intake. Discussed the case with oncology. Not a good candidate for feeding tube at this point in time. He is pulse ox is 99% liters of oxygen by nasal cannula. Extremely weak and emaciated at this point in time. The patient's lactic acid is slowly improving. His epigastric was as high as 11 is currently down to 4.1. Objective - Vital Signs Vital signs: Vital Signs Temp 96.7 F L 10/30/19 08:00 Pulse 108 H 10/30/19 08:00 Resp 13 10/30/19 08:00 BP 91/61 10/30/19 08:00 Pulse Ox 100 10/30/19 08:00 Intake & Output 10/29/19 10/30/19 10/30/19 18:59 06:59 18:59 Intake Total 3250 410 Output Total 1185 200 Balance 2065 210 Weight 63.503 kg 58.7 kg Intake: IV 820 410 Dextrose 5% in Water 1, 300 150 000 ml @ 75 mls/hr IV . [id number] [facility] Rx#:[id number] Sodium Chloride 0.9% 1, 520 260 000 ml @ 130 mls/hr IV . Q7H42M [facility] Rx#:[id number] Intake, IV Titration 2430 Amount Dextrose 5% in Water 1, 110 000 ml @ 75 mls/hr IV . [id number] [facility] Rx#:[id number] Fluconazole in NaCl,Iso- 50 Osm 100 mg In Saline 1 50ml.bag @ 50 mls/hr IVPB DAILY [facility] Rx#:[id number] Piperacillin-Tazobactam 3 100 .375 gm In Sodium Chloride 0.9% 100 ml @ 25 mls/hr IVPB Q8HR [facility] Rx# :[id number] Sodium Chloride 0.9% 1, 1170 000 ml @ 130 mls/hr IV . Q7H42M [facility] Rx#:[id number] Sodium Chloride 0.9% 1, 1000 000 ml @ 999 mls/hr IV . Q1H1M [facility] Rx#:[id number] Output: Urine 1185 200 Other: Voiding Method Indwelling Catheter Indwelling Catheter - Exam Thin frail and cachectic, malnourished and thin and frail male patient, poor historian, lethargic yet arousable. Head exam was generally normal. There was no scleral icterus or corneal arcus. Mucous membranes were moist. Neck is supple and the patient has extremely dry mucous membranes. The patient has extensive oropharyngeal candidiasis. Lungs were clear to auscultation and percussion, and with normal diaphragmatic excursion. No wheezes or rales were noted. Cardiac exam revealed the PMI to be normally situated and sized. The rhythm was regular and no extrasystoles were noted during several minutes of auscultation. The first and second heart sounds were normal and physiologic splitting of the second heart sound was noted. There were no murmurs, rubs, clicks, or gallops. The patient has a MediPort over the right anterior chest area. Abdomen is soft and nontender. No organomegaly.Abdominal exam revealed normal bowel sounds. The abdomen was soft, non-tender, and without masses, organomegaly, or appreciable enlargement of the abdominal aorta. Extremities show chronic edema, limited records of those activities bilaterally along with multiple ulceration of various sizes covered with yellowish necrotic skin tissue . Pulses are diminished at the present. No cyanosis. No clubbing. Neurologically, the patient is extremely weak and lethargic and he is arousable and follows commands and answering question. Extremities without any limitation. - Labs CBC & Chem 7: 10/30/19 04:00 10/30/19 04:00 Labs: Abnormal Lab Results - Last 24 Hours (Table) 10/29/19 10/29/19 10/29/19 Range/Units 12:00 12:00 12:00 WBC 74.0 H* (3.8-10.6) k/uL RBC 3.04 L (4.30-5.90) m/uL Hgb 9.2 L D (13.0-17.5) gm/dL Hct 29.8 L (39.0-53.0) % MCHC (31.0-37.0) g/dL RDW 18.8 H (11.5-15.5) % Neutrophils # 71.8 H (1.3-7.7) k/uL Lymphocytes # 0.0 L (1.0-4.8) k/uL Monocytes # 1.4 H (0-1.0) k/uL Basophils # 0.8 H (0-0.2) k/uL PT 14.0 H (9.0-12.0) sec INR 1.4 H (<1.2) Sodium 134 L (137-145) mmol/L Potassium 5.9 H (3.5-5.1) mmol/L Chloride (98-107) mmol/L Carbon Dioxide 18 L (22-30) mmol/L BUN 83 H (9-20) mg/dL Creatinine 2.23 H (0.66-1.25) mg/dL Glucose (74-99) mg/dL POC Glucose (mg/dL) (75-99) mg/dL Plasma Lactic Acid Mohinder (0.7-2.0) mmol/L Calcium 12.9 H (8.4-10.2) mg/dL Phosphorus 5.4 H (2.5-4.5) mg/dL Magnesium 3.2 H (1.6-2.3) mg/dL AST 203 H (17-59) U/L ALT 78 H (4-49) U/L Alkaline Phosphatase 323 H (38-126) U/L Total Protein 5.8 L (6.3-8.2) g/dL Albumin 2.6 L (3.5-5.0) g/dL Urine Protein (Negative) Urine Blood (Negative) Ur Leukocyte Esterase (Negative) Urine RBC (0-5) /hpf Urine Bacteria (None) /hpf Hyaline Casts (0-2) /lpf Urine Mucus (None) /hpf 10/29/19 10/29/19 10/29/19 Range/Units 12:00 13:09 15:39 WBC (3.8-10.6) k/uL RBC (4.30-5.90) m/uL Hgb (13.0-17.5) gm/dL Hct (39.0-53.0) % MCHC (31.0-37.0) g/dL RDW (11.5-15.5) % Neutrophils # (1.3-7.7) k/uL Lymphocytes # (1.0-4.8) k/uL Monocytes # (0-1.0) k/uL Basophils # (0-0.2) k/uL PT (9.0-12.0) sec INR (<1.2) Sodium (137-145) mmol/L Potassium (3.5-5.1) mmol/L Chloride (98-107) mmol/L Carbon Dioxide (22-30) mmol/L BUN (9-20) mg/dL Creatinine (0.66-1.25) mg/dL Glucose (74-99) mg/dL POC Glucose (mg/dL) (75-99) mg/dL Plasma Lactic Acid Mohinder 5.5 H* 11.4 H* (0.7-2.0) mmol/L Calcium (8.4-10.2) mg/dL Phosphorus (2.5-4.5) mg/dL Magnesium (1.6-2.3) mg/dL AST (17-59) U/L ALT (4-49) U/L Alkaline Phosphatase (38-126) U/L Total Protein (6.3-8.2) g/dL Albumin (3.5-5.0) g/dL Urine Protein Trace H (Negative) Urine Blood Small H (Negative) Ur Leukocyte Esterase Small H (Negative) Urine RBC 6 H (0-5) /hpf Urine Bacteria Rare H (None) /hpf Hyaline Casts 6 H (0-2) /lpf Urine Mucus Rare H (None) /hpf 10/29/19 10/29/19 10/30/19 Range/Units 19:11 23:08 02:04 WBC (3.8-10.6) k/uL RBC (4.30-5.90) m/uL Hgb (13.0-17.5) gm/dL Hct (39.0-53.0) % MCHC (31.0-37.0) g/dL RDW (11.5-15.5) % Neutrophils # (1.3-7.7) k/uL Lymphocytes # (1.0-4.8) k/uL Monocytes # (0-1.0) k/uL Basophils # (0-0.2) k/uL PT (9.0-12.0) sec INR (<1.2) Sodium (137-145) mmol/L Potassium (3.5-5.1) mmol/L Chloride (98-107) mmol/L Carbon Dioxide (22-30) mmol/L BUN (9-20) mg/dL Creatinine (0.66-1.25) mg/dL Glucose (74-99) mg/dL POC Glucose (mg/dL) <20 L (75-99) mg/dL Plasma Lactic Acid Mohinder 2.5 H* 2.1 H* (0.7-2.0) mmol/L Calcium (8.4-10.2) mg/dL Phosphorus (2.5-4.5) mg/dL Magnesium (1.6-2.3) mg/dL AST (17-59) U/L ALT (4-49) U/L Alkaline Phosphatase (38-126) U/L Total Protein (6.3-8.2) g/dL Albumin (3.5-5.0) g/dL Urine Protein (Negative) Urine Blood (Negative) Ur Leukocyte Esterase (Negative) Urine RBC (0-5) /hpf Urine Bacteria (None) /hpf Hyaline Casts (0-2) /lpf Urine Mucus (None) /hpf 10/30/19 10/30/19 10/30/19 Range/Units 02:05 02:10 02:31 WBC (3.8-10.6) k/uL RBC (4.30-5.90) m/uL Hgb (13.0-17.5) gm/dL Hct (39.0-53.0) % MCHC (31.0-37.0) g/dL RDW (11.5-15.5) % Neutrophils # (1.3-7.7) k/uL Lymphocytes # (1.0-4.8) k/uL Monocytes # (0-1.0) k/uL Basophils # (0-0.2) k/uL PT (9.0-12.0) sec INR (<1.2) Sodium (137-145) mmol/L Potassium (3.5-5.1) mmol/L Chloride (98-107) mmol/L Carbon Dioxide (22-30) mmol/L BUN (9-20) mg/dL Creatinine (0.66-1.25) mg/dL Glucose 60 L (74-99) mg/dL POC Glucose (mg/dL) 38 L 73 L (75-99) mg/dL Plasma Lactic Acid Mohinder (0.7-2.0) mmol/L Calcium (8.4-10.2) mg/dL Phosphorus (2.5-4.5) mg/dL Magnesium (1.6-2.3) mg/dL AST (17-59) U/L ALT (4-49) U/L Alkaline Phosphatase (38-126) U/L Total Protein (6.3-8.2) g/dL Albumin (3.5-5.0) g/dL Urine Protein (Negative) Urine Blood (Negative) Ur Leukocyte Esterase (Negative) Urine RBC (0-5) /hpf Urine Bacteria (None) /hpf Hyaline Casts (0-2) /lpf Urine Mucus (None) /hpf 10/30/19 10/30/19 10/30/19 Range/Units 03:39 04:00 04:00 WBC 65.8 H* (3.8-10.6) k/uL RBC 2.59 L (4.30-5.90) m/uL Hgb 7.9 L (13.0-17.5) gm/dL Hct 25.9 L (39.0-53.0) % MCHC 30.6 L (31.0-37.0) g/dL RDW 19.4 H (11.5-15.5) % Neutrophils # 64.5 H (1.3-7.7) k/uL Lymphocytes # 0.1 L (1.0-4.8) k/uL Monocytes # 1.1 H (0-1.0) k/uL Basophils # (0-0.2) k/uL PT (9.0-12.0) sec INR (<1.2) Sodium (137-145) mmol/L Potassium (3.5-5.1) mmol/L Chloride 109 H (98-107) mmol/L Carbon Dioxide (22-30) mmol/L BUN 68 H (9-20) mg/dL Creatinine 1.74 H (0.66-1.25) mg/dL Glucose 117 H (74-99) mg/dL POC Glucose (mg/dL) 72 L (75-99) mg/dL Plasma Lactic Acid Mohinder (0.7-2.0) mmol/L Calcium 10.6 H (8.4-10.2) mg/dL Phosphorus (2.5-4.5) mg/dL Magnesium (1.6-2.3) mg/dL AST 112 H (17-59) U/L ALT 61 H (4-49) U/L Alkaline Phosphatase 266 H (38-126) U/L Total Protein 4.7 L (6.3-8.2) g/dL Albumin 2.0 L (3.5-5.0) g/dL Urine Protein (Negative) Urine Blood (Negative) Ur Leukocyte Esterase (Negative) Urine RBC (0-5) /hpf Urine Bacteria (None) /hpf Hyaline Casts (0-2) /lpf Urine Mucus (None) /hpf 10/30/19 10/30/19 Range/Units 04:00 08:36 WBC (3.8-10.6) k/uL RBC (4.30-5.90) m/uL Hgb (13.0-17.5) gm/dL Hct (39.0-53.0) % MCHC (31.0-37.0) g/dL RDW (11.5-15.5) % Neutrophils # (1.3-7.7) k/uL Lymphocytes # (1.0-4.8) k/uL Monocytes # (0-1.0) k/uL Basophils # (0-0.2) k/uL PT (9.0-12.0) sec INR (<1.2) Sodium (137-145) mmol/L Potassium (3.5-5.1) mmol/L Chloride (98-107) mmol/L Carbon Dioxide (22-30) mmol/L BUN (9-20) mg/dL Creatinine (0.66-1.25) mg/dL Glucose (74-99) mg/dL POC Glucose (mg/dL) (75-99) mg/dL Plasma Lactic Acid Mohinder 4.1 H* 3.8 H* (0.7-2.0) mmol/L Calcium (8.4-10.2) mg/dL Phosphorus (2.5-4.5) mg/dL Magnesium (1.6-2.3) mg/dL AST (17-59) U/L ALT (4-49) U/L Alkaline Phosphatase (38-126) U/L Total Protein (6.3-8.2) g/dL Albumin (3.5-5.0) g/dL Urine Protein (Negative) Urine Blood (Negative) Ur Leukocyte Esterase (Negative) Urine RBC (0-5) /hpf Urine Bacteria (None) /hpf Hyaline Casts (0-2) /lpf Urine Mucus (None) /hpf Assessment and Plan Plan: 1 sepsis under investigation. Consider soft tissue infection with secondary bacteremia and sepsis. The patient presents in with extreme dehydration, leukocytosis and lactic acidosis. Clinically slightly improved compared to yesterday. The patient is well resuscitated. He is on no pressors. White cell count is improving is down to 65. Urine output is in order of 50 mL an hour. The patient's lactic acid level is also improving is down to 4.1 2 lactic acidosis improving and the lactic acid level is down to 4.1 3 severe leukocytosis, slightly improved compared to yesterday and the white cell count is down to 65 4 stage IV metastatic esophageal cancer with metastases to the liver, adrenal gland and pelvis. The patient was treated with radiation therapy and systemic chemotherapy with received a cycle of FOLFOX and Herceptin. Since then, the patient has lost approximately 15 kg. Over the past 2-3 weeks, the patient is completely obstructed and the patient unable to tolerate any form of oral solids or liquids. 5 hypercalcemia secondary to skeletal metastases versus dehydration 6 lower extremity wounds, multiple with various areas of necrosis with possible superimposed cellulitis in lower extremities 7 oropharyngeal candidiasis 8 recent subsegmental pulmonary embolism maintained on no anticoagulation for now and the patient has an IVC filter in place 9 extensive cachexia and weight loss 10 very poor performance and functional status and the patient has become b edridden and unable to walk and unable to move around with profound muscle weakness and severe protein calorie malnutrition 11 hypothyroidism 12 smoking 13 hyperlipidemia 14 BPH 15 abnormal LFTs secondary to liver metastases 16 episodic hypoglycemia Plan Continue IV fluids Awaiting the results of the blood and the urine cultures Continue IV cefepime vancomycin and Diflucan Wound care to the lower extremities No pressors for now Unable to swallow and not a candidate for a PEG tube insertion Continue the D5 water at the rate of 75 mL an hour addition to normal saline We'll transfer to oncology unit with the next 24 hours once the lactic acid levels normalize. Discussed the findings with the son at the bedside. The patient should have a close status changes based on the fact that his underlying disease is metastatic and the patient will not recover at this point in time based on the fact that his for performance and functional status extremely poor and the patient has severe cachexia and protein calorie malnutrition. Furthermore, feeding is going to be an active issue on this patient as the patient is completely obstructed from his esophageal cancer and he hasn't been able to tolerate anything orally. I personally don't think that he is up good candidate for PEG tube feeding. I will raise this issue with oncology will going to be consult on the case. IV Protonix and subcutaneous heparin We'll continue to follow.
[2019-10-30] MEDS ORDERED: VANCOMYCIN 1,000 MG in SODIUM CHLORIDE 0.9% 250 ML IVPB SCH (11:00)
[2019-10-30 11:43] VITALS: BMI 18.0
[2019-10-30 11:46] LABS: Glucose,Whole Blood 105 mg/dL (75-99)
--- NOTE | 2019-10-30 12:08 | P.CONS ---
History of Present Illness - Reason for Consult Consult date: 10/30/19 Oncology care Requesting physician: Phong Molina - Chief Complaint progressive weakness, anorexia - History of Present Illness Mister Cuevas is a very pleasant male who presented 06/[address] of the chest done showed some irregular thickening of the mid to distal thoracic esophagus. He was referred to surgery for further workup. CT of the brain was negative. EGD 08/11/19 revealed an obstructing mass in the scope could not pass. Biopsy positive for moderately differentiated adenocarcinoma, Her2 equivocal, PD-1 positive. Staging PET 08/26/19 showed uptake in the primary site, precarinal lymph nodes, multiple hepatic lesions and right iliac metastasis. Patient was started on palliative radiation to the distal esophagus on the right hip. Start of systemic chemotherapy was delayed due to hospital admission for hypercalcemia and dehydration. He was subsequently started on FOLFOX and Herceptin on 10/03/19, s/p 1 cycle. He was admitted to the hospital after cycle 1 because of progressive lower extremity swelling and development of blisters with subsequent rupture and ulceration with superimposed infection and cellulitis. He was seen in consult in the hospital, and was treated by multiple consultants, including Nephrology to try to diurese him, as well as ID. He was discharged about 2-3 weeks ago. He was seen in the office by Dr. Weeks 10/24. It was discussed at that time that patient would be at very high risk to resume conventional chemotherapy due to the potential of affecting healing and causing recurrent infections with low counts. Options discussed included reassessment in a few weeks to see how patient was progressing. It was discussed that there was the risk of patient's performance status continuing to decline due to progression of cancer, sequela of cancer. PD1 immunotherapy was discussed with the understanding that response to treatment typically takes 3-4 months and that there could be sequela from pseudoprogression. Comfort care was also discussed as a resonable option. Patient and family chose to be reassessed in 2 weeks. Unfortunately, patient is readmitted with progressive decline in performance status. Review of Systems 14 point ROS is negative except as stated in HPI Past Medical History Past Medical History: Cancer, GERD/Reflux, Hyperlipidemia, Hypertension, Pneumonia, Prostate Disorder, Thyroid Disorder Additional Past Medical History / Comment(s): ANEMIA- hiatal hernia. had an episode of vertigo in May 2019. Esophageal cancer. Radiation therapy - Aug 2019. Pneumonia - 2019 History of Any Multi-Drug Resistant Organisms: None Reported Additional Past Surgical History / Comment(s): COLONOSCOPY. PROSTATE BX, right side port placement Past Anesthesia/Blood Transfusion Reactions: No Reported Reaction Past Psychological History: No Psychological Hx Reported Smoking Status: Current every day smoker Past Alcohol Use History: None Reported Past Drug Use History: None Reported - Past Family History Mother Family Medical History: Liver Disease Medications and Allergies Home Medications Medication Instructions Recorded Confirmed Type Finasteride [Proscar] 5 mg PO HS 10/16/16 10/29/19 History Simvastatin [Zocor] 40 mg PO SUMOWEFR 10/16/16 10/29/19 History Levothyroxine Sodium [Synthroid] 75 mcg PO DAILY 06/01/19 10/29/19 History HYDROcodone/APAP 5-325MG [[place] 1 tab PO Q6HR PRN 10/04/19 10/29/19 History 5-325] Doxycycline [Vibramycin] 100 mg PO BID #14 capsule 10/16/19 10/29/19 Rx Apixaban [Eliquis Starter Pack See Taper PO DIRECTED 10/29/19 10/29/19 History (for VTE)] Collagenase [Santyl] 1 applic TOPICAL DAILY 10/29/19 10/29/19 History Lidocaine-Prilocaine Cream [Emla 1 applic TOPICAL DAILY PRN 10/29/19 10/29/19 History Cream 2.5%/2.5%] Allergies Allergy/AdvReac Type Severity Reaction Status Date / Time No Known Allergies Allergy Verified 10/29/19 14:00 Physical Exam Vitals: Vital Signs Temp Pulse Resp BP Pulse Ox 10/30/19 07:00 95 13 91/64 100 10/30/19 06:00 106 H 11 L 98/56 100 10/30/19 05:00 93 11 L 96/60 100 10/30/19 04:00 96.3 F L 93 10 L 97/70 100 10/30/19 03:00 90 10 L 94/71 100 10/30/19 02:00 100 12 99/83 100 10/30/19 01:00 12 75/65 100 10/30/19 00:00 97.6 F 97 13 99/81 100 10/29/19 23:00 104 H 17 118/92 100 10/29/19 22:00 97.6 F 105 H 11 L 116/85 100 10/29/19 21:00 96 16 114/100 100 10/29/19 20:00 97.2 F L 93 20 131/103 97 10/29/19 19:01 94 22 111/72 93 L 10/29/19 19:00 102 H 12 111/72 100 10/29/19 18:24 97.8 F 88 18 122/84 100 10/29/19 18:15 36.3 F L 91 11 L 120/98 98 10/29/19 16:46 88 18 122/84 100 10/29/19 16:27 100 18 122/91 10/29/19 15:00 88 18 128/82 10/29/19 13:16 86 18 95/59 10/29/19 12:52 105/87 10/29/19 10:53 97.8 F 65 16 89/67 84 L Intake and Output 10/29/19 10/30/19 10/30/19 22:59 06:59 14:59 Intake Total 570 2680 Output Total 275 910 Balance 295 1770 Intake: IV 820 Dextrose 5% in Water 1, 300 000 ml @ 75 mls/hr IV . [id number] [facility] Rx#:[id number] Sodium Chloride 0.9% 1, 520 000 ml @ 130 mls/hr IV . Q7H42M [facility] Rx#:[id number] Intake, IV Titration 570 1860 Amount Dextrose 5% in Water 1, 110 000 ml @ 75 mls/hr IV . [id number] [facility] Rx#:[id number] Fluconazole in NaCl,Iso- 50 Osm 100 mg In Saline 1 50ml.bag @ 50 mls/hr IVPB DAILY [facility] Rx#:[id number] Piperacillin-Tazobactam 3 100 .375 gm In Sodium Chloride 0.9% 100 ml @ 25 mls/hr IVPB Q8HR [facility] Rx# :[id number] Sodium Chloride 0.9% 1, 520 650 000 ml @ 130 mls/hr IV . Q7H42M [facility] Rx#:[id number] Sodium Chloride 0.9% 1, 1000 000 ml @ 999 mls/hr IV . Q1H1M STA Rx#:[id number] Output: Urine 275 910 Other: Voiding Method Indwelling Catheter Indwelling Catheter Weight 58.7 kg - Constitutional General appearance: mild distress, thin - EENT Eyes: anicteric sclerae, EOMI ENT: hearing grossly normal - Neck Neck: no lymphadenopathy - Respiratory Respiratory: bilateral: diminished - Cardiovascular Heart sounds: normal: S1, S2 Abnormal Heart Sounds: no systolic murmur, no diastolic murmur, no rub, no S3 Gallop, no S4 Gallop, no click, no other leg Peripheral Edema: bilateral: 2+ - Gastrointestinal General gastrointestinal: no absent bowel sounds, no decreased bowel sounds, no distended, no hepatomegaly, no hyperactive bowel sounds, no normal bowel sounds, no organomegaly, no rigid, scaphoid, soft, no splenomegaly, no tenderness, no umbilical hernia, no ventral hernia - Integumentary BLE wounds - Neurologic Neurologic: CNII-XII intact - Musculoskeletal cachexia, malnutrition, muscle wasting Musculoskeletal: generalized weakness - Psychiatric Psychiatric: A&O x's 3, appropriate affect, intact judgment & insight Results CBC & Chem 7: 10/30/19 04:00 10/30/19 04:00 Labs: Abnormal Lab Results - Last 24 Hours (Table) 10/29/19 10/29/19 10/29/19 Range/Units 12:00 12:00 12:00 WBC 74.0 H* (3.8-10.6) k/uL RBC 3.04 L (4.30-5.90) m/uL Hgb 9.2 L D (13.0-17.5) gm/dL Hct 29.8 L (39.0-53.0) % MCHC (31.0-37.0) g/dL RDW 18.8 H (11.5-15.5) % Neutrophils # 71.8 H (1.3-7.7) k/uL Lymphocytes # 0.0 L (1.0-4.8) k/uL Monocytes # 1.4 H (0-1.0) k/uL Basophils # 0.8 H (0-0.2) k/uL PT 14.0 H (9.0-12.0) sec INR 1.4 H (<1.2) Sodium 134 L (137-145) mmol/L Potassium 5.9 H (3.5-5.1) mmol/L Chloride (98-107) mmol/L Carbon Dioxide 18 L (22-30) mmol/L BUN 83 H (9-20) mg/dL Creatinine 2.23 H (0.66-1.25) mg/dL Glucose (74-99) mg/dL POC Glucose (mg/dL) (75-99) mg/dL Plasma Lactic Acid Mohinder (0.7-2.0) mmol/L Calcium 12.9 H (8.4-10.2) mg/dL Phosphorus 5.4 H (2.5-4.5) mg/dL Magnesium 3.2 H (1.6-2.3) mg/dL AST 203 H (17-59) U/L ALT 78 H (4-49) U/L Alkaline Phosphatase 323 H (38-126) U/L Total Protein 5.8 L (6.3-8.2) g/dL Albumin 2.6 L (3.5-5.0) g/dL Urine Protein (Negative) Urine Blood (Negative) Ur Leukocyte Esterase (Negative) Urine RBC (0-5) /hpf Urine Bacteria (None) /hpf Hyaline Casts (0-2) /lpf Urine Mucus (None) /hpf 10/29/19 10/29/19 10/29/19 Range/Units 12:00 13:09 15:39 WBC (3.8-10.6) k/uL RBC (4.30-5.90) m/uL Hgb (13.0-17.5) gm/dL Hct (39.0-53.0) % MCHC (31.0-37.0) g/dL RDW (11.5-15.5) % Neutrophils # (1.3-7.7) k/uL Lymphocytes # (1.0-4.8) k/uL Monocytes # (0-1.0) k/uL Basophils # (0-0.2) k/uL PT (9.0-12.0) sec INR (<1.2) Sodium (137-145) mmol/L Potassium (3.5-5.1) mmol/L Chloride (98-107) mmol/L Carbon Dioxide (22-30) mmol/L BUN (9-20) mg/dL Creatinine (0.66-1.25) mg/dL Glucose (74-99) mg/dL POC Glucose (mg/dL) (75-99) mg/dL Plasma Lactic Acid Mohinder 5.5 H* 11.4 H* (0.7-2.0) mmol/L Calcium (8.4-10.2) mg/dL Phosphorus (2.5-4.5) mg/dL Magnesium (1.6-2.3) mg/dL AST (17-59) U/L ALT (4-49) U/L Alkaline Phosphatase (38-126) U/L Total Protein (6.3-8.2) g/dL Albumin (3.5-5.0) g/dL Urine Protein Trace H (Negative) Urine Blood Small H (Negative) Ur Leukocyte Esterase Small H (Negative) Urine RBC 6 H (0-5) /hpf Urine Bacteria Rare H (None) /hpf Hyaline Casts 6 H (0-2) /lpf Urine Mucus Rare H (None) /hpf 10/29/19 10/29/19 10/30/19 Range/Units 19:11 23:08 02:04 WBC (3.8-10.6) k/uL RBC (4.30-5.90) m/uL Hgb (13.0-17.5) gm/dL Hct (39.0-53.0) % MCHC (31.0-37.0) g/dL RDW (11.5-15.5) % Neutrophils # (1.3-7.7) k/uL Lymphocytes # (1.0-4.8) k/uL Monocytes # (0-1.0) k/uL Basophils # (0-0.2) k/uL PT (9.0-12.0) sec INR (<1.2) Sodium (137-145) mmol/L Potassium (3.5-5.1) mmol/L Chloride (98-107) mmol/L Carbon Dioxide (22-30) mmol/L BUN (9-20) mg/dL Creatinine (0.66-1.25) mg/dL Glucose (74-99) mg/dL POC Glucose (mg/dL) <20 L (75-99) mg/dL Plasma Lactic Acid Mohinder 2.5 H* 2.1 H* (0.7-2.0) mmol/L Calcium (8.4-10.2) mg/dL Phosphorus (2.5-4.5) mg/dL Magnesium (1.6-2.3) mg/dL AST (17-59) U/L ALT (4-49) U/L Alkaline Phosphatase (38-126) U/L Total Protein (6.3-8.2) g/dL Albumin (3.5-5.0) g/dL Urine Protein (Negative) Urine Blood (Negative) Ur Leukocyte Esterase (Negative) Urine RBC (0-5) /hpf Urine Bacteria (None) /hpf Hyaline Casts (0-2) /lpf Urine Mucus (None) /hpf 10/30/19 10/30/19 10/30/19 Range/Units 02:05 02:10 02:31 WBC (3.8-10.6) k/uL RBC (4.30-5.90) m/uL Hgb (13.0-17.5) gm/dL Hct (39.0-53.0) % MCHC (31.0-37.0) g/dL RDW (11.5-15.5) % Neutrophils # (1.3-7.7) k/uL Lymphocytes # (1.0-4.8) k/uL Monocytes # (0-1.0) k/uL Basophils # (0-0.2) k/uL PT (9.0-12.0) sec INR (<1.2) Sodium (137-145) mmol/L Potassium (3.5-5.1) mmol/L Chloride (98-107) mmol/L Carbon Dioxide (22-30) mmol/L BUN (9-20) mg/dL Creatinine (0.66-1.25) mg/dL Glucose 60 L (74-99) mg/dL POC Glucose (mg/dL) 38 L 73 L (75-99) mg/dL Plasma Lactic Acid Mohinder (0.7-2.0) mmol/L Calcium (8.4-10.2) mg/dL Phosphorus (2.5-4.5) mg/dL Magnesium (1.6-2.3) mg/dL AST (17-59) U/L ALT (4-49) U/L Alkaline Phosphatase (38-126) U/L Total Protein (6.3-8.2) g/dL Albumin (3.5-5.0) g/dL Urine Protein (Negative) Urine Blood (Negative) Ur Leukocyte Esterase (Negative) Urine RBC (0-5) /hpf Urine Bacteria (None) /hpf Hyaline Casts (0-2) /lpf Urine Mucus (None) /hpf 10/30/19 10/30/19 10/30/19 Range/Units 03:39 04:00 04:00 WBC 65.8 H* (3.8-10.6) k/uL RBC 2.59 L (4.30-5.90) m/uL Hgb 7.9 L (13.0-17.5) gm/dL Hct 25.9 L (39.0-53.0) % MCHC 30.6 L (31.0-37.0) g/dL RDW 19.4 H (11.5-15.5) % Neutrophils # 64.5 H (1.3-7.7) k/uL Lymphocytes # 0.1 L (1.0-4.8) k/uL Monocytes # 1.1 H (0-1.0) k/uL Basophils # (0-0.2) k/uL PT (9.0-12.0) sec INR (<1.2) Sodium (137-145) mmol/L Potassium (3.5-5.1) mmol/L Chloride 109 H (98-107) mmol/L Carbon Dioxide (22-30) mmol/L BUN 68 H (9-20) mg/dL Creatinine 1.74 H (0.66-1.25) mg/dL Glucose 117 H (74-99) mg/dL POC Glucose (mg/dL) 72 L (75-99) mg/dL Plasma Lactic Acid Mohinder (0.7-2.0) mmol/L Calcium 10.6 H (8.4-10.2) mg/dL Phosphorus (2.5-4.5) mg/dL Magnesium (1.6-2.3) mg/dL AST 112 H (17-59) U/L ALT 61 H (4-49) U/L Alkaline Phosphatase 266 H (38-126) U/L Total Protein 4.7 L (6.3-8.2) g/dL Albumin 2.0 L (3.5-5.0) g/dL Urine Protein (Negative) Urine Blood (Negative) Ur Leukocyte Esterase (Negative) Urine RBC (0-5) /hpf Urine Bacteria (None) /hpf Hyaline Casts (0-2) /lpf Urine Mucus (None) /hpf 10/30/19 Range/Units 04:00 WBC (3.8-10.6) k/uL RBC (4.30-5.90) m/uL Hgb (13.0-17.5) gm/dL Hct (39.0-53.0) % MCHC (31.0-37.0) g/dL RDW (11.5-15.5) % Neutrophils # (1.3-7.7) k/uL Lymphocytes # (1.0-4.8) k/uL Monocytes # (0-1.0) k/uL Basophils # (0-0.2) k/uL PT (9.0-12.0) sec INR (<1.2) Sodium (137-145) mmol/L Potassium (3.5-5.1) mmol/L Chloride (98-107) mmol/L Carbon Dioxide (22-30) mmol/L BUN (9-20) mg/dL Creatinine (0.66-1.25) mg/dL Glucose (74-99) mg/dL POC Glucose (mg/dL) (75-99) mg/dL Plasma Lactic Acid Mohinder 4.1 H* (0.7-2.0) mmol/L Calcium (8.4-10.2) mg/dL Phosphorus (2.5-4.5) mg/dL Magnesium (1.6-2.3) mg/dL AST (17-59) U/L ALT (4-49) U/L Alkaline Phosphatase (38-126) U/L Total Protein (6.3-8.2) g/dL Albumin (3.5-5.0) g/dL Urine Protein (Negative) Urine Blood (Negative) Ur Leukocyte Esterase (Negative) Urine RBC (0-5) /hpf Urine Bacteria (None) /hpf Hyaline Casts (0-2) /lpf Urine Mucus (None) /hpf Chest x-ray: report reviewed Assessment and Plan (1) Cellulitis Current Visit: Yes Status: Acute Priority: High Code(s): L03.90 - CELLULITIS, UNSPECIFIED SNOMED Code(s): 723351954 (2) Dehydration Current Visit: Yes Status: Acute Priority: High Code(s): E86.0 - DEHYDRATION SNOMED Code(s): 82297481 (3) Esophageal cancer, stage IV Current Visit: Yes Status: Acute Priority: High Code(s): C15.9 - MALIGNANT NEOPLASM OF ESOPHAGUS, UNSPECIFIED SNOMED Code(s): 676969569 (4) Leukocytosis Narrative/Plan: All neutrophils. Most likely secondary to bilateral lower extremity wounds, no acute intervention Current Visit: Yes Status: Chronic Priority: High Code(s): D72.829 - ELEVATED WHITE BLOOD CELL COUNT, UNSPECIFIED SNOMED Code(s): 726977167 (5) Cachexia Current Visit: Yes Status: Acute Priority: High Code(s): R64 - CACHEXIA SNOMED Code(s): 746652868 Plan: Dr. Weeks discussed with the patient restaging once the creatinine is down a bit. From his examination performance status has continued to decline. If there is disease progression patient will not be able to recuperate adequately to be considered for palliative treatment and the recommendation at that time would be for hospice. If disease is showing stability it is still anticipated that patient will not meet the physical requirement necessary to be treated i.e.- tolerating oral intake, able to ambulate as he continues to decline. Treatment intent was palliative, with goals being 2 reduce symptoms of disease and possibly to prolong life. We will schedule scans and subsequently schedule a family meeting to discuss recommendations. Attests: I have performed history and physical examination of pt and developed impression and plan of care. Discussed with dictator. I agree with dictator's note, documented as a scribe.
--- NOTE | 2019-10-30 13:04 | PN ---
PROGRESS NOTE DATE OF SERVICE: 10/30/2019 REASON FOR FOLLOWUP: Leukocytosis, lower extremity wound. INTERVAL HISTORY: The patient is currently afebrile. The patient did have borderline blood pressure. The patient remains to be a little bit lethargic though responded to his name. No vomiting or diarrhea has been reported. The patient is of the history. PHYSICAL EXAMINATION: Blood pressure 92/57 with a pulse of 101, temperature 96.4. He is 100% on 2 L nasal cannula. General description is an elderly male, lying in bed in no distress. Lower extremities did have significant swelling and wounds. No drainage. LABS: Hemoglobin 7.1, white count is 55.8. Creatinine is down to 1.74. Lactic acid 3.8. DIAGNOSTIC IMPRESSION AND PLAN: Patient admitted to the hospital with significant weakness (in this patient who did have metastatic esophageal cancer, elevated white count more likely multifactorial), possible lower extremity wound cellulitis, dehydration, Hemoccult situation. In view of overall poor prognosis, patient is leaning more for hospice orientation may be appropriate. Antibiotic can be safely discontinued. Son was at the bedside his questions and concerns were answered. MMODL / IJN: [id number] /
--- NOTE | 2019-10-30 15:19 | P.DS ---
Providers Date of admission: 10/29/19 13:17 Attending physician: Ricardo Juarez MD Consults: 10/29/19 13:15 Consult Physician Urgent Consulting Provider: Phoenix Weeks Consult Reason/Comments: oncological care Do you want consulting provider notified?: Yes Consult Physician Urgent Consulting Provider: Malik Nunez Consult Reason/Comments: sepsis Do you want consulting provider notified?: Yes 10/29/19 16:59 Consult Physician Urgent Consulting Provider: Mayra Mahoney Consult Reason/Comments: critical care Do you want consulting provider notified?: Already Contacted 10/29/19 17:52 Consult Physician Routine Consulting Provider: Malik Nunez Consult Reason/Comments: Cellulitis, sepsis Do you want consulting provider notified?: Yes Primary care physician: Padmini Juarez Hospital Course: Diagnoses: -Sepsis, possible secondary to UTI and bacteremia -Elevated lactic acid -Altered mental status -Severe leukocytosis -Stage IV metastatic esophageal cancer with metastasis to the liver, adrenal gland and pelvis, status post radiochemotherapy -Hypercalcemia -Lower extremity wounds -Oral thrush -History of pulmonary embolism, status post IVC filter -Deconditioning -Hypothyroidism -BPH -Hyperlipidemia -Severe protein calorie malnutrition and cachexia hospital course This is a 64 years old male with stage IV metastatic esophageal cancer brought by the son for weakness with limited oral intake. Find to have multiple medical problems as above. Patient was admitted to the ICU and treated by critical care unit with oncology team were on-call sent, patient also has been treated with antibiotics including cefepime, fluconazole, vancomycin as well as fluid resuscitation, patient showed poor response. Oncology team recommended palliative treatment and hospice care, today when he came into the room patient's son is already was taken to hospice team. Patient son at bedside was telling me his mother is the next of kin and that told him she agrees with operative care and hospice care, the son is also agrees with hospice care. Hospice care orders were initiated Gen: patient is a AAOx0, no distress, unresponsive, severe dehydration CVS: S1-S2, RRR, no murmur Lungs: B/L CTA, no wheezing Abdomen: soft, no distention, no tenderness, positive bowel sounds Extremity: no leg edema or induration Time spent more than 35 minutes Patient Condition at Discharge: Serious Plan - Discharge Summary New Discharge Prescriptions: No Action Finasteride [Proscar] 5 mg PO HS Simvastatin [Zocor] 40 mg PO SUMOWEFR Levothyroxine Sodium [Synthroid] 75 mcg PO DAILY HYDROcodone/APAP 5-325MG [[place] 5-325] 1 tab PO Q6HR PRN PRN Reason: Moderate To Severe Pain Doxycycline [Vibramycin] 100 mg PO BID #14 capsule Apixaban [Eliquis Starter Pack (for VTE)] See Taper PO DIRECTED Lidocaine-Prilocaine Cream [Emla Cream 2.5%/2.5%] 1 applic TOPICAL DAILY PRN PRN Reason: PORT ACCESS Collagenase [Santyl] 1 applic TOPICAL DAILY Discharge Medication List Finasteride [Proscar] 5 mg PO HS 10/16/16 [History] Simvastatin [Zocor] 40 mg PO SUMOWEFR 10/16/16 [History] Levothyroxine Sodium [Synthroid] 75 mcg PO DAILY 06/01/19 [History] HYDROcodone/APAP 5-325MG [[place] 5-325] 1 tab PO Q6HR PRN 10/04/19 [History] Doxycycline [Vibramycin] 100 mg PO BID #14 capsule 10/16/19 [Rx] Apixaban [Eliquis Starter Pack (for VTE)] See Taper PO DIRECTED 10/29/19 [History] Collagenase [Santyl] 1 applic TOPICAL DAILY 10/29/19 [History] Lidocaine-Prilocaine Cream [Emla Cream 2.5%/2.5%] 1 applic TOPICAL DAILY PRN 10/29/19 [History] Follow up Appointment(s)/Referral(s): Padmini Juarez DO [Primary Care Provider] - 1-2 days
[2019-10-30 15:20] VITALS: BP 88/67; PULSE 93; RESP 15
--- NOTE | 2019-11-02 10:23 | CDI ---
Documentation Clarification Form Date: 11/02/19 From: Ericka Hood Phone: If you have a question about this query, please contact Anju Mckinley, Poll Clerk at [phone] between 8am and 5pm. Admit Date: 10/29/19 Discharge Date: 10/30/19 Patient Name: ROBERT PALM Visit Number: [id number] ATTENTION: The Clinical Documentation Specialists (CDI) and [facility] Coding Staff appreciate your assistance in clarifying documentation. Please respond to the clarification below the line at the bottom and electronically sign. The CDI & [facility] Coding staff will review the response and follow-up if needed. Please note: Queries are made part of the Legal Health Record. If you have any questions, please contact the author of this message via ITS. Dear Dr. Ricardo Juarez, The patient presented with the following Stage III coccygeal ulcer was documented in the 10/29 progress note. History/Risk Factors: sepsis w septic shock, ARF, Stage IV esophageal ca w mets to adrenal glands, liver, bone, oral candidiasis, severe malnutrition Clinical Indicators: Wound assessment documents coccyx pressure injury present on admission w Stage II on 10/28. Additional nursing documentation on 10/28 - coccyx pressure injury on admission w Stage III. Treatment: OptiForm In your professional opinion, can you please clarify type of ulcer? Pressure ulcer, coccyx, Stage III, present on admission Pressure ulcer, coccyx, Stage III not present on admission Non-pressure ulcer, coccyx, Stage III, present on admission Non-pressure ulcer, coccyx, Stage III, not present on admission Other, please specify Unable to determine Pressure ulcer, coccyx, Stage III, present on admission MTDD
--- NOTE | 2019-11-02 10:36 | CDI ---
Documentation Clarification Form Date: 11/02/19 From: Ericka Hood Phone: If you have a question about this query, please contact Anju Mckinley, Tsa Screener at [phone] between 8am and 5pm. Admit Date: 10/29/19 Discharge Date: 10/30/19 Patient Name: ROBERT PALM Visit Number: [id number] ATTENTION: The Clinical Documentation Specialists (CDI) and [facility] Coding Staff appreciate your assistance in clarifying documentation. Please respond to the clarification below the line at the bottom and electronically sign. The CDI & [facility] Coding staff will review the response and follow-up if needed. Please note: Queries are made part of the Legal Health Record. If you have any questions, please contact the author of this message via ITS. Dear Dr. Ricardo Juarez, Conflicting documentation has been found in the medical record: The diagnosis of subsegmental pulmonary embolism w IVC filter was documented in Dr Denzel vitale & his progress notes. History of pulmonary embolism s/p IVC filter was documented in your discharge summary. History/Risk Factors: sepsis w septic shock, ARF, Stage IV esophageal ca w mets to adrenal glands, liver, bone, oral candidiasis, severe malnutrition, coccygeal ulcer stage III Clinical Indicators: S/P IVC filter, In your opinion, what is the most clinically appropriate diagnosis for this patient? Acute subsegmental pulmonary embolism Chronic subsegmental pulmonary embolism History of subsegmental pulmonary embolism Other explanation of clinical findings Unable to determine (no explanation for clinical findings) Chronic subsegmental PE MTDD
== END 2019-10-30 15:26 | disposition hospice, inpatient (51) | DRG 871 ==
LOC: EC 10:50 → 3SCARD 13:17 → 2SICU 17:06
PROVIDERS: ADMIT Family Medicine; ATTEND Family Medicine
DX: A41.9 Sepsis, unspecified organism (principal); L89.153 Pressure ulcer of sacral region, stage 3; R65.21 Severe sepsis with septic shock; E43 Unspecified severe protein-calorie malnutrition; R64 Cachexia; E87.2 Acidosis; N17.9 Acute kidney failure, unspecified; C79.70 Secondary malignant neoplasm of unspecified adrenal gland; C79.51 Secondary malignant neoplasm of bone; I27.82 Chronic pulmonary embolism; C15.9 Malignant neoplasm of esophagus, unspecified; C78.7 Secondary malignant neoplasm of liver and intrahepatic bile duct; Z68.1 Body mass index [BMI] 19.9 or less, adult; B37.0 Candidal stomatitis; L97.922 Non-pressure chronic ulcer of unspecified part of left lower leg with fat layer exposed; L97.912 Non-pressure chronic ulcer of unspecified part of right lower leg with fat layer exposed; N39.0 Urinary tract infection, site not specified; L03.116 Cellulitis of left lower limb; L03.115 Cellulitis of right lower limb; Z66 Do not resuscitate; Z51.5 Encounter for palliative care; R62.7 Adult failure to thrive; E86.0 Dehydration; E83.52 Hypercalcemia; E16.2 Hypoglycemia, unspecified; D64.9 Anemia, unspecified; E03.9 Hypothyroidism, unspecified; E78.5 Hyperlipidemia, unspecified; I10 Essential (primary) hypertension; K21.9 Gastro-esophageal reflux disease without esophagitis; K44.9 Diaphragmatic hernia without obstruction or gangrene; N40.1 Benign prostatic hyperplasia with lower urinary tract symptoms; N39.498 Other specified urinary incontinence; R60.0 Localized edema; F17.210 Nicotine dependence, cigarettes, uncomplicated; Z71.6 Tobacco abuse counseling; Z79.890 Hormone replacement therapy; Z79.01 Long term (current) use of anticoagulants; Z79.899 Other long term (current) drug therapy; Z71.3 Dietary counseling and surveillance; Z95.828 Presence of other vascular implants and grafts; Z87.01 Personal history of pneumonia (recurrent); Z92.3 Personal history of irradiation; Z92.21 Personal history of antineoplastic chemotherapy; Z74.01 Bed confinement status; Z98.890 Other specified postprocedural states; Z83.79 Family history of other diseases of the digestive system
CPT/HCPCS: 36415; 71046; 80053; 81001; 82533; 82947; 83605; 83735; 84100; 84145; 85025; 85610; 85730; 87040; 93005; 96361; 96365; 96366; 96375; 99291

== ENCOUNTER 2019-10-30 | Inpatient (IN) | payer MEDICAID | END 2019-11-02 20:12 | disposition E | DRG 951 | PROVIDERS: ADMIT Internal Medicine ==